=== PATIENT | male | born 1965 | race African-American/Black ===

== ENCOUNTER 2019-12-28 07:28 | Inpatient (IN) | payer SELFPAY ==
[2019-12-28] MEDS ORDERED: methylPREDNISolone Sod Succ/PF 125 MG/2 ML VIAL ONE (07:58)
[2019-12-28 08:50] LABS: CKMB 2.9 ng/mL (0-6.6)
[2019-12-28] MEDS ORDERED: Ketorolac Tromethamine 30 MG/ML VIAL ONE (09:08)
[2019-12-28 10:23] LABS: SARS-CoV-2 NAA Rapid Test Not Detected (NotDetected)
[2019-12-28] MEDS ORDERED: hydrALAZINE 20 MG/ML VIAL SLOW IVP PRN (10:41)
[2019-12-28] MEDS ORDERED: DEXTROSE 5% IVPB SCH (10:45)
[2019-12-28] MEDS ORDERED: TRIMETHOPRIM IVPB SCH (10:45)
[2019-12-28] MEDS ORDERED: WATER IVPB SCH (10:45)
[2019-12-28] MEDS ORDERED: SULFAMETHOXAZOLE IVPB SCH (10:45)
--- NOTE | 2019-12-28 10:51 | PDOC.HHP ---
Hospitalist HPI - History of Present Illness Shortness of breath, cough, hemoptysis History of Present Illness: This patient is a 54-year-old male with only a past medical history of hypertension. He takes no medications and does not follow with a physician regularly. Patient reported that on the he started experiencing some cough, shortness of breath, fever. He was seen in the emergency department in [place] on December 20. He had a chest x-ray which showed a reticulonodular pattern suggestive of an atypical pneumonia he was a bit tachypneic. He had reported hemoptysis at that time as well. He had azithromycin prescribed for him and he was discharged home after his Covid test returned negative. He returned to the emergency department the following day as his symptoms were somewhat progressive. At that time he had a CTA of the chest which did not reveal any PE but did continue to have evidence of multifocal pneumonia. He remained a bit tachycardic. He was given IV Levaquin. He was subsequently discharged home with oral Levaquin as he had normal oxygen saturations at that time. Patient presented again to the emergency department in [place] on the day of admission with worsening shortness of breath. He also had persistent hemoptysis. His chest x-ray showed worsening lung aeration and recommendation was for bronchoscopy. Patient was noted to have some low-grade fever. Blood pressure was somewhat elevated. He had a documented oxygen saturation as low as 66% on room air. He was given vancomycin, Levaquin, Zosyn and 2 L of IV fluids and transferred to this facility. While here the patient was noted to have significant hypoxia with briefly taking him off of the nonrebreather mask. Only additional history is that the patient reports he does have some discomfort in his chest at times since this started. He has continued to report fever. ED Course: In the emergency department here the patient received a dose of Decadron and Toradol. Hospitalist ROS - Review of Systems Constitutional: reports: fever, chills, sweats Respiratory: reports: cough, shortness of breath, hemoptysis Cardiovascular: reports: chest pain Gastrointestinal: denies: nausea, vomiting, abdominal pain, diarrhea, constipation Genitourinary: denies: dysuria, frequency Skin: denies: rash All other systems reviewed; all pertinent +/- noted in HPI/Subj - Medication Medications: None Hospitalist History - Past Medical History Source: patient Cardiac: reports: HTN Gastrointestinal: reports: Peptic ulcer disease - Past Surgical History Other Surgical History: Right hip surgery following a fracture related to a fall - Family History Family History: reports: no pertinent history - Social History Smoking Status: Never smoker Alcohol: reports: None Drugs: reports: none Other Social History: Patient is engaged. He is full code. His fiance or sister would be his surrogate decision makers. - Exam General Appearance: awake alert General - other findings: Mildly tachypneic with the nonrebreather mask in place. ENT: normocephalic atraumatic Neck: supple, symmetric, no JVD, no thyromegaly, no lymphadenopathy, no carotid bruit Heart: RRR, no murmur, no gallops, no rubs, normal peripheral pulses Respiratory: tachypneic Respiratory - other findings: Scattered rales throughout both lungs in all carney Gastrointestinal: soft, non-tender, non-distended, normal bowel sounds, no palpable masses, no hepatomegaly, no splenomegaly, no bruit Extremities: no cyanosis, no clubbing, no edema Skin: normal turgor, no lesions, no rashes Neurological: cranial nerve grossly intact, normal sensation to touch, no weakness, no focal deficits, no new deficit Musculoskeletal: normal tone, normal strength, no muscle wasting Psychiatric: normal affect, normal behavior, A&O x 3 Hospitalist Results - Labs Lab results: Lactic Acid 1.1 mmol/L (0.5-2.2) 12/28/19 07:55 CK-MB (CK-2) 2.9 ng/mL (0-6.6) 12/28/19 07:55 Troponin I 0.045 ng/mL (< 0.028) H 12/28/19 07:55 White count is 18.4, hemoglobin 13.5, platelets 438. D-dimer is 1.78, INR is 1.0, PTT is 40.2. Sodium 133 potassium 4.1 CO2 22 BUN 11 creatinine 1.03 glucose 168 AST 76 ALT 101 alkaline phos 139 CK 248 troponin 0 0.045. Covid negative again today. - Radiology Interpretation Chest x-ray Status: image reviewed by me, report reviewed by me (Worsening aeration.) Hospitalist H&P A/P - Problem (1) Acute respiratory failure with hypoxia Code(s): J96.01 - ACUTE RESPIRATORY FAILURE WITH HYPOXIA Status: Acute (2) Atypical pneumonia Code(s): J18.9 - PNEUMONIA, UNSPECIFIED ORGANISM Status: Acute (3) Hemoptysis Code(s): R04.2 - HEMOPTYSIS Status: Acute (4) Hypertension Code(s): I10 - ESSENTIAL (PRIMARY) HYPERTENSION Status: Acute (5) Elevated liver enzymes Code(s): R74.8 - ABNORMAL LEVELS OF OTHER SERUM ENZYMES Status: Acute (6) Myocardial infarction Code(s): I21.9 - ACUTE MYOCARDIAL INFARCTION, UNSPECIFIED Status: Acute Qualifiers: Myocardial infarction type: type 2 Qualified Code(s): I21.A1 - Myocardial infarction type 2 - Plan Plan: Patient is a 54-year-old male who presented with cough, fever, shortness of breath and hemoptysis for a total of 7 days. He was seen in the emergency department twice earlier in the week. He received azithromycin and Levaquin orally. His symptoms have progressed. He is significantly hypoxic in the emergency department with an atypical pneumonia pattern on his chest x-ray and an elevated white blood cell count. Acute hypoxic respiratory failure: Patient appears to have respiratory failure secondary to significant atypical type pneumonia. Currently on nonrebreather. Continue supplemental oxygen as required. Pulmonary consult. Atypical pneumonia: Patient has a negative Covid test x2 over the past week. 1 was negative today. He does not appear to be immunocompromised for any reason. He has significant l eukocytosis and his pattern on chest x-ray does not appear to be consistent with Covid. Concerning for possible PCP pneumonia. Will cover with Bactrim. Consult pulmonology for possible bronchoscopy. Check urine antigens for Legionella. QuantiFERON, sputum for AFB. Isolate. ID consult. Continue coverage with vancomycin and cefepime. Elevated liver enzymes: Mild. Unclear if this is significant. We will continue to monitor. Likely represents some mild fatty liver disease in an overweight patient. Could be part of the infectious process. Hypertension: Patient has a history of hypertension. He does not take any medications at this time. His blood pressure has been somewhat variable over his hospital visits in the past week. We will provide for a as needed IV medication. NSTEMI type II: Secondary to acute hypoxia. Does not appear to warrant further work-up at this time.
[2019-12-28 12:12] LABS: CKMB 3.9 ng/mL (0-6.6)
[2019-12-28] MEDS: TRIMETHOPRIM IVPB SCH (12:40)
[2019-12-28] MEDS: DEXTROSE 5% IVPB SCH (12:40)
[2019-12-28] MEDS: WATER IVPB SCH (12:40)
[2019-12-28] MEDS: SULFAMETHOXAZOLE IVPB SCH (12:40)
[2019-12-28] MEDS: Cefepime 1 GM in Sodium Chloride 0.9% 100 ML IVPB SCH (12:41)
[2019-12-28] MEDS: Sodium Chloride 0.9% 1,000 ML IV SCH (14:24)
[2019-12-28] MEDS ORDERED: Vancomycin 1 GM in Premix Bag 1 BAG IVPB SCH (21:00)
[2019-12-28] MEDS ORDERED: Benzonatate 100 MG CAP PO SCH (22:00)
[2019-12-28 23:43] VITALS: BMI 34.7
[2019-12-29] MEDS: TRIMETHOPRIM IVPB SCH ×4 (00:04→12:39)
[2019-12-29] MEDS: WATER IVPB SCH ×4 (00:04→12:39)
[2019-12-29] MEDS: SULFAMETHOXAZOLE IVPB SCH ×4 (00:04→12:39)
[2019-12-29] MEDS: DEXTROSE 5% IVPB SCH ×4 (00:04→12:39)
[2019-12-29] MEDS: Cefepime 1 GM in Sodium Chloride 0.9% 100 ML IVPB SCH ×2 (00:28→10:40)
[2019-12-29] MEDS: Acetaminophen 325 MG TAB PO PRN ×2 (00:28→07:51)
[2019-12-29] MEDS: Famotidine 20 MG TAB PO SCH ×3 (00:33→20:36)
[2019-12-29] MEDS: Sodium Chloride 0.9% 1,000 ML IV SCH ×2 (00:33→12:40)
[2019-12-29 02:42] LABS: Legionella Urinary Ag Negative (Negative)
[2019-12-29 03:27] LABS: Band 19 % (5-11); Hemoglobin 11.5 g/dL (14.0-18.0); Lymphocytes 7 % (21-51); MDiff Complete? YES; Mean Corpuscular HGB CONC 32.8 g/dL (32.0-36.0); Mean Corpuscular Hemoglobin 31.6 pg (27.0-31.0); Mean Corpuscular Volume 96.3 fL (78.0-98.0); Mean Platelet Volume 7.1 fL (7.4-10.4); Metamyelocyte 1 % (0-0); Monocytes 5 % (0-10); Neutrophil 68 % (42-75); Platelet Count 378 thou/uL (130-400); Platelet Morphology Comment Appears Adequate; RBC Distribution Width 11.3 % (11.5-14.5); Red Blood Cell (RBC) Count 3.63 mill/uL (4.70-6.10); White Blood Cell (WBC) Count 18.9 thou/uL (4.8-10.8)
[2019-12-29 03:42] LABS: ALT (SGPT) 95 U/L (8-55); AST (SGOT) 75 U/L (5-34); Albumin 2.9 g/dL (3.5-5.0); Alkaline Phosphatase 129 U/L (40-110); Anion Gap 13 mmol/L (10-20); BUN (Urea Nitrogen) 16 mg/dL (8.4-25.7); Bilirubin, Total 0.4 mg/dL (0.2-1.2); Calc. Creatinine Clearance 154 mL/min (70-130); Calcium 8.5 mg/dL (7.8-10.44); Carbon Dioxide 25 mmol/L (22-29); Chloride 100 mmol/L (98-107); Estimated GFR-MDRD Greater than 90; Globulin 3.7 g/dL (2.4-3.5); Glucose 198 mg/dL (70-105); Potassium 4.9 mmol/L (3.5-5.1); Protein, Total 6.6 g/dL (6.0-8.3); Sodium 133 mmol/L (136-145)
[2019-12-29] MEDS: Benzonatate 100 MG CAP PO PRN ×3 (07:51→23:30)
[2019-12-29] MEDS ORDERED: FLU VACC QS2020-21(6MOS UP)/PF 60 MCG/0.5 ML SYRINGE IM ONE (09:00)
--- NOTE | 2019-12-29 12:28 | PDOC.HOSPP ---
- Subjective Encounter Date: 12/29/19 Encounter Time: 12:25 Subjective: f/u for multifocal PNA/hypoxic resp failure receiving Cefepime/Bactrim/O2. Still with SOB and coughing. COVID and Influenza negative. - Objective Vital Signs & Weight: Vital Signs (12 hours) Temp Pulse Ox 12/29/19 11:04 92 L 12/29/19 10:00 97.4 F L 12/29/19 08:00 97 12/29/19 06:00 98.0 F Weight Weight 270 lb 1.06 oz Most Recent Monitor Data Heart Rate from ECG 82 NIBP 131/78 NIBP BP-Mean 95 Respiration from ECG 29 SpO2 94 I&O: 12/28/19 12/29/19 12/30/19 06:59 06:59 06:59 Intake Total 500 Output Total 1250 Balance -750 Result Diagrams: 12/29/19 03:13 12/29/19 03:13 Radiology Reviewed by me: Yes (PCXR - worsening aeration bilat) EKG Reviewed by me: Yes (Tele - SR) Hospitalist ROS - Medication Medications: Active Medications Generic Name Dose Route Start Last Admin Trade Name Freq PRN Reason Stop Dose Admin Acetaminophen 650 mg 12/28/19 10:29 12/29/19 07:51 Acetaminophen 325 Mg Tab PO 650 mg Q4H PRN Administration Headache/Fever/Mild Pain (1-3) Benzonatate 100 mg 12/29/19 02:41 12/29/19 07:51 Benzonatate 100 Mg Cap PO 100 mg TIDPRN PRN Administration Cough Famotidine 20 mg 12/28/19 21:00 12/29/19 07:51 Famotidine 20 Mg Tab PO 20 mg BID KRISTY Administration Sodium Chloride 1,000 mls @ 75 mls/hr 12/28/19 10:30 12/29/19 00:33 Normal Saline 0.9% IV 1,000 mls .[id number] KRISTY Administration Cefepime HCl 1 gm/ Sodium 100 mls @ 200 mls/hr 12/28/19 12:00 12/29/19 10:40 Chloride IVPB 100 mls 0000,1200 KRISTY Administration Trimethoprim/Sulfamethoxazole 375 mls @ 375 mls/hr 12/28/19 12:00 12/29/19 06:27 240 mg/ Dextrose/Water IVPB 375 mls Q6HR KRISTY Administration - Exam General Appearance: NAD, awake alert Eye: PERRL, anicteric sclera ENT: normocephalic atraumatic, no oropharyngeal lesions Neck: supple, symmetric, no JVD, no thyromegaly, no lymphadenopathy Heart: RRR, no gallops, no rubs, normal peripheral pulses Heart - other findings: S1, S2 Gastrointestinal: soft, non-tender, non-distended, normal bowel sounds, no palpable masses, no hepatomegaly Extremities: no cyanosis, no clubbing, no edema Skin: normal turgor, no lesions Neurological: cranial nerve grossly intact, no new deficit Musculoskeletal: normal tone, normal strength, no muscle wasting Psychiatric: normal affect, A&O x 3 Hosp A/P (1) Atypical pneumonia Code(s): J18.9 - PNEUMONIA, UNSPECIFIED ORGANISM Status: Acute Plan: ? etiology, continue Cefepime/Bactrim, r/o for TB/PCP, add Solumedrol and Duonebs, COVID negative (2) Acute respiratory failure with hypoxia Code(s): J96.01 - ACUTE RESPIRATORY FAILURE WITH HYPOXIA Status: Acute Plan: Continue O2 supplementation, see #1 (3) Transaminitis Code(s): R74.01 - ELEVATION OF LEVELS OF LIVER TRANSAMINASE LEVELS Status: Acute Plan: ? etiology, check Hepatitis panel, ? fatty liver (4) Hemoptysis Code(s): R04.2 - HEMOPTYSIS Status: Acute Plan: Improving, continue to monitor (5) Hypertension Code(s): I10 - ESSENTIAL (PRIMARY) HYPERTENSION Status: Chronic (6) Myocardial infarction Code(s): I21.9 - ACUTE MYOCARDIAL INFARCTION, UNSPECIFIED Status: Acute Qualifiers: Myocardial infarction type: type 2 Qualified Code(s): I21.A1 - Myocardial infarction type 2 Plan: Type II due to demand ischemia, med mgmt - Plan continue antibiotics, respiratory therapy, DVT proph w/SCDs Stable currently Continue Cefepime/Bactrim Add Solumedrol 40mg IV q6h Add Robitussin DM Add Duonebs Appreciate Pulmonology assistance AM Lab: CMP, CBC, Hep Panel, HIV 1/2 Ag/Ab
[2019-12-29 13:47] LABS: HIV (1/2) Antibody/Antigen Non-Reactive (NonReactive); HIV 1/2 INDEX 0.16 S/CO (<1.00)
[2019-12-29] MEDS: methylPREDNISolone Sod Succ/PF 125 MG/2 ML VIAL IVP SCH ×2 (16:39→18:11)
[2019-12-29 17:58] LABS: Bacteria/HPF None Seen HPF (None Seen); RBC/HPF 0-3 HPF (0-3); Squamous Epithelial 0-3 HPF (0-3); WBC/HPF 0-3 HPF (0-3)
[2019-12-29 20:00] LABS: Legionella Urinary Ag Negative (Negative)
[2019-12-29 20:27] LABS: SARS-CoV-2 IgG Ab Non-Reactive (NonReactive); SARS-CoV-2 IgG Index 0.36 S/CO (< 1.40)
[2019-12-29] MEDS: Guaifenesin DM 100-10/5 ML UDCUP PO PRN (20:37)
--- NOTE | 2019-12-29 22:20 | CON ---
DATE OF CONSULTATION: 12/29/2019 REASON: Pneumonia. HISTORY OF PRESENT ILLNESS: A 54-year-old, first admission to this hospital, who has history of hypertension and gastric ulcers and initially showed up in the emergency room on December 20 with 2-day history of cough and substernal chest pain, so he has been sick since December 18. He did have some subjective fever, but in the emergency room, he did not have a temperature recorded. He was saturating at 96 on room air. Chest x-ray had a reticular nodular pattern and he had a normal troponin and lactic acid, so a followup in 24 hours was recommended. He did have some hemoptysis at that time. He was prescribed azithromycin for the possibility of atypical pneumonia. He returned the next day and felt okay but then started having fever again and the cough worsened with streaks of blood. The temperature was 99.7, O2 sat was 97 on room air, and pulse 112. Chest CT showed patchy infiltrates. No embolism. There is mild white cell count elevation. He was given IV Levaquin and eventually discharged to home for followup in the clinic and then he came in back on the and was admitted. This final time, patient's BP 180/100; O2 sat of 66 on room air, 99 on a nonrebreather. Respiratory exam with mild respiratory distress, inspiratory crackles, diffusely distributed. Remainder of the examination not particularly remarkable. Other findings, white cell count 18.9, hemoglobin 11, platelets 378, bands 19, metamyelocyte 1, lymphocytes were decreased, and creatinine 0.94. AST 75. HIV was nonreactive. Legionella pneumophila antigen negative. Repeat SARS-CoV-2 RT-PCR was not detected, this is the second test. The first one was almost 10 days ago. Currently, Mr. Hemphill is still a little bit tachypneic. He feels a little better because his sputum is not so yellow anymore and does not have the blood streaks. No headaches. No visual symptoms, sore throat, odynophagia, or dysphagia. No dental pain. No back pain. No abdominal pain or diarrhea. No genitourinary symptoms. No joint symptoms. No neurological symptoms. PAST MEDICAL HISTORY: Hypertension and peptic ulcer disease. SURGICAL HISTORY: Hip surgery after fracture. FAMILY HISTORY: Noncontributory. SOCIAL HISTORY: Never smoker. He lives with his fiancee, has been before with two children, grown up. 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 CURRENT MEDICATIONS LIST: Includes: 1. Inhalers. 2. Tessalon. 3. Cefepime. 4. Medrol. 5. Bactrim. PHYSICAL EXAMINATION: VITAL SIGNS: T-max 98, blood pressure 130/70, heart rate 82, respiratory rate 29, and he is on 4 L nasal cannula, saturating at 92%. SKIN: Normal. There is no lymphadenopathy. HEENT: Ocular movements conjugate. Sclerae white. Oral cavity normal. NECK: Supple. LUNGS: With a few crackles scattered. No wheezing. HEART: S1, S2. Regular rate. ABDOMEN: Soft, not distended or tender. No ascites. No bladder distention. EXTREMITIES: No joint inflammatory activity. Moves extremities equally. NEUROLOGIC: Cognitive function appears to be intact. LABORATORIES: Have been reviewed above. Chest CT angiogram from seven days ago with multifocal pneumonia with a centrilobular pattern. ASSESSMENT: Hypertension with new diffuse pneumonitis with negative SARS-CoV RT-PCR x2 one week apart. Hemoptysis. DISCUSSION: The pretest likelihood for SARS-CoV infection is very high and even two negative PCRs do not rule out this diagnosis in this patient. We will go ahead and submit an antibody test and if that is negative, then it would decrease significantly the likelihood of SARS-CoV-2 infection. Other assays have been submitted, including MTB sputum evaluation. HIV is negative and Pneumocystis is unlikely in the absence of advanced immunosuppression. Fungal mycobacterial infection need to be ruled out, but SARS-CoV-2 infection is by far the most likely scenario despite two negative PCR tests. In that regard, he may be a candidate for Remdesivir, he is approaching, today is the kind of limit, but I think if the antibody is positive, we will go ahead and start him tomorrow Remdesivir. High doses of corticosteroids tend to suppress immune response antibody production and cellular immune response, so if it is confirmed that he has SARS-CoV infection, I would advise reduction to the doses recommended in the multiple randomized trials, which is equivalent to 6 mg of Decadron. Also, Decadron does not have mineralo corticoid activities, so it is more beneficial in terms of avoiding volume overload. Job ID: [id number] [facility]
--- NOTE | 2019-12-29 23:28 | CON ---
DATE OF CONSULTATION: 12/29/2019 SUBJECTIVE: Zeyad Hemphill is a 54-year-old male, who has been feeling poorly for over a week. He has had 2 negative COVID tests during that period. He has diffuse infiltrates on a chest radiograph and subsequently was admitted. Says he feels a tiny bit better than when he was admitted. OBJECTIVE: VITAL SIGNS: Blood pressure is elevated at 182/89 this afternoon and 163/108 later this afternoon, heart rates in the 90s, respiratory rates in the 20s, oximetry is 91% to 96%. LUNGS: Remarkable for fine crackles at his bases. HEART: Regular rhythm. ABDOMEN: Soft. EXTREMITIES: Without clubbing, cyanosis, or edema. 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 He has not been around anybody who has been sick. Did have some hemoptysis with this. PAST MEDICAL HISTORY: Remarkable for hypertension, ulcer disease, and a fracture in the past. SOCIAL HISTORY: He is nonsmoker, nondrinker, and nondrug user. LABORATORY STUDIES: White count 18.9, hemoglobin 11.5, platelets 278,000. Electrolytes are unremarkable. No urinalysis. Liver enzymes are mildly elevated. Albumin was 2.9. Chest radiograph shows diffuse increase in interstitial markings with some micronodular changes. This certainly could be atypical pneumonia. Hypertensive with left ventricular dysfunction with small pulmonary edema could be contributing. Hypersensitivity pneumonitis, granulomatous disease, disseminated histoplasma, or an ANCA positive vasculitis is still in the differential. Serology has been sent for all the above. He needs urinalysis to rule out microhematuria. I doubt with two COVID screens that are negative, this is COVID. We will follow. This is a 70 min visit with greater than 50% of the time spent on the unit with coordination of care. Job ID: [id number] [facility]
[2019-12-30] MEDS: Cefepime 1 GM in Sodium Chloride 0.9% 100 ML IVPB SCH ×2 (00:39→11:10)
[2019-12-30] MEDS: methylPREDNISolone Sod Succ/PF 125 MG/2 ML VIAL IVP SCH ×4 (00:39→17:27)
[2019-12-30] MEDS: Sodium Chloride 0.9% 1,000 ML IV SCH ×2 (01:33→05:57)
[2019-12-30 03:55] LABS: #Lymphocytes 0.6 thou/uL (1.20-3.40); #Monocytes 0.4 thou/uL (0.11-0.59); #Neutrophils 13.9 thou/uL (1.40-6.50); %Basophils 0.1 % (0.0-1.0); %Eosinophils 0.2 % (0.0-10.0); %Lymphocytes 4.2 % (21.0-51.0); %Monocytes 2.9 % (0.0-10.0); %Neutrophils 92.6 % (42.0-75.0); Mean Corpuscular HGB CONC 33.4 g/dL (32.0-36.0); Mean Corpuscular Volume 95.7 fL (78.0-98.0); Mean Platelet Volume 7.1 fL (7.4-10.4); Platelet Count 470 thou/uL (130-400); RBC Distribution Width 11.5 % (11.5-14.5); Red Blood Cell (RBC) Count 3.75 mill/uL (4.70-6.10); White Blood Cell (WBC) Count 13.2 thou/uL (4.8-10.8)
[2019-12-30 04:16] LABS: ALT (SGPT) 172 U/L (8-55); AST (SGOT) 118 U/L (5-34); Albumin 3.1 g/dL (3.5-5.0); Alkaline Phosphatase 118 U/L (40-110); Anion Gap 13 mmol/L (10-20); BUN (Urea Nitrogen) 12 mg/dL (8.4-25.7); Bilirubin, Total 0.3 mg/dL (0.2-1.2); Calc. Creatinine Clearance 161 mL/min (70-130); Calcium 8.6 mg/dL (7.8-10.44); Carbon Dioxide 25 mmol/L (22-29); Chloride 102 mmol/L (98-107); Estimated GFR-MDRD Greater than 90; Globulin 3.6 g/dL (2.4-3.5); Glucose 142 mg/dL (70-105); Potassium 5.2 mmol/L (3.5-5.1); Protein, Total 6.7 g/dL (6.0-8.3); Sodium 135 mmol/L (136-145)
[2019-12-30 04:31] LABS: HBCM Index 0.24 S/CO (0-0.79); HBSAg Index 0.22 S/CO (0-0.99); Hep A IgM AB Non-Reactive (NonReactive); Hep A IgM S/CO 0.23 S/CO (0-0.79); Hep B Surf Ag Non-Reactive S/CO (NonReactive); Hep C IgG Ab Non-Reactive (NonReactive); Hep C Index 0.09 S/CO (0-0.79); Hepatitis B Core IgM Abs Non-Reactive (NonReactive)
[2019-12-30] MEDS: Famotidine 20 MG TAB PO SCH ×2 (07:43→20:38)
[2019-12-30] MEDS: cloNIDine 0.1 MG TAB PO PRN ×2 (11:08→20:54)
[2019-12-30] MEDS: Benzonatate 100 MG CAP PO PRN (11:09)
[2019-12-30 12:31] LABS: Vancomycin, Trough Less than 1.1 ug/mL
--- NOTE | 2019-12-30 15:10 | PRG ---
DATE OF SERVICE: 12/30/2019 SUBJECTIVE: Zeyad Hemphill says he is feeling significantly better than yesterday. OBJECTIVE: VITAL SIGNS: He is afebrile, heart rate is in the 90s, respiratory rates in the 20s, oximetry is 94% on a cannula, and blood pressure is better this afternoon after Catapres p.r.n. LUNGS: Clear. HEART: Regular rhythm. ABDOMEN: Soft. IMPRESSION: Diffuse increase in interstitial markings with micro nodules. PLAN: We will continue following. His sedimentation rate is 127, which is surprising. This might argue in favor of a vasculitis. Those tests are pending. Job ID: [id number]
--- NOTE | 2019-12-30 16:31 | PDOC.HOSPP ---
- Subjective Encounter Date: 12/30/19 Encounter Time: 16:30 Subjective: f/u for multifocal PNA with unclear etiology including COVID negative x 2 and negative antibodies. Feels overall better and less dyspnea and cough. Receiving Cefepime/Solumedrol/O2 @ 4L/min NC. - Objective Vital Signs & Weight: Vital Signs (12 hours) Temp Pulse Resp BP BP Pulse Ox 12/30/19 14:15 98.1 F 98 22 H 144/88 H 94 L 12/30/19 14:00 95 12/30/19 12:00 98.1 F 12/30/19 11:08 168/100 H 12/30/19 10:37 94 L 12/30/19 10:34 90 20 94 L 12/30/19 08:00 98.1 F 12/30/19 07:47 92 L Weight Weight 270 lb 1.06 oz Most Recent Monitor Data Heart Rate from ECG 97 NIBP 170/99 NIBP BP-Mean 122 Respiration from ECG 23 SpO2 92 I&O: 12/29/19 12/30/19 12/31/19 06:59 06:59 06:59 Intake Total 1700 4230 Output Total 1250 5350 Balance 450 -1120 Result Diagrams: 12/30/19 03:24 12/30/19 03:24 Additional Labs: Microbiology 12/29/19 00:49 Sputum Direct Acid Fast Bacilli Smear - Final 12/29/19 00:49 Sputum Acid Fast Bacilli Culture - Preliminary Specimen has been received and culture in progress. No Growth to date. Laboratory Tests 12/28/19 12/28/19 12/28/19 05:27 07:55 07:55 WBC Hgb ESR Westergren Lactic Acid 1.1 AST 76 H ALT 101 H Lactate Dehydrogenase Troponin I 0.045 H HIV 1&2 Antigen & Ab Ur L.pneumophila Ag SARS-CoV-2 Rap RNA(RT-PCR) SARS-CoV-2 IgG Ab SARS-CoV-2 IgG Ab Index 12/28/19 12/28/19 12/28/19 07:55 09:08 11:01 WBC Hgb ESR Westergren Lactic Acid AST ALT Lactate Dehydrogenase 254 H Troponin I 0.039 H HIV 1&2 Antigen & Ab Ur L.pneumophila Ag SARS-CoV-2 Rap RNA(RT-PCR) Not Detected SARS-CoV-2 IgG Ab SARS-CoV-2 IgG Ab Index 12/28/19 12/29/19 12/29/19 14:50 02:07 03:13 WBC Hgb ESR Westergren Lactic Acid AST 75 H ALT 95 H Lactate Dehydrogenase Troponin I 0.023 HIV 1&2 Antigen & Ab Ur L.pneumophila Ag Negative SARS-CoV-2 Rap RNA(RT-PCR) SARS-CoV-2 IgG Ab SARS-CoV-2 IgG Ab Index 12/29/19 12/29/19 12/29/19 03:13 12:51 12:55 WBC 18.9 H Hgb 11.5 L ESR Westergren 127 H Lactic Acid AST ALT Lactate Dehydrogenase Troponin I HIV 1&2 Antigen & Ab Ur L.pneumophila Ag SARS-CoV-2 Rap RNA(RT-PCR) SARS-CoV-2 IgG Ab Non-Reactive SARS-CoV-2 IgG Ab Index 0.36 12/29/19 12/29/19 12:55 Unknown WBC Hgb ESR Westergren Lactic Acid AST ALT Lactate Dehydrogenase Troponin I HIV 1&2 Antigen & Ab Non-Reactive Ur L.pneumophila Ag Negative SARS-CoV-2 Rap RNA(RT-PCR) SARS-CoV-2 IgG Ab SARS-CoV-2 IgG Ab Index Hospitalist ROS - Medication Medications: Active Medications Generic Name Dose Route Start Last Admin Trade Name Freq PRN Reason Stop Dose Admin Acetaminophen 650 mg 12/28/19 10:29 12/29/19 07:51 Acetaminophen 325 Mg Tab PO 650 mg Q4H PRN Administration Headache/Fever/Mild Pain (1-3) Albuterol/Ipratropium 3 ml 12/29/19 14:30 12/30/19 10:34 Ipratropium/Albuterol Sulfate 3 Ml Neb NEB 3 ml [id number] KRISTY Administration Benzonatate 100 mg 12/29/19 02:41 12/30/19 11:09 Benzonatate 100 Mg Cap PO 100 mg TIDPRN PRN Administration Cough Clonidine 0.1 mg 12/30/19 10:45 12/30/19 11:08 Clonidine 0.1 Mg Tab PO 0.1 mg Q4H PRN Administration SBP>170 & DBP>100 Famotidine 20 mg 12/28/19 21:00 12/30/19 07:43 Famotidine 20 Mg Tab PO 20 mg BID KRISTY Administration Guaifenesin/Dextromethorphan 15 ml 12/29/19 12:49 12/29/19 20:37 Guaifenesin Dm 100-10/5 Ml Udcup PO 15 ml Q4H PRN Administration Cough Sodium Chloride 1,000 mls @ 75 mls/hr 12/28/19 10:30 12/30/19 05:57 Normal Saline 0.9% IV 1,000 mls .[id number] KRISTY Administration Cefepime HCl 1 gm/ Sodium 100 mls @ 200 mls/hr 12/28/19 12:00 12/30/19 11:10 Chloride IVPB 100 mls 0000,1200 KRISTY Administration Trimethoprim/Sulfamethoxazole 500 mls @ 250 mls/hr 12/29/19 18:00 12/30/19 12:48 240 mg/ Dextrose/Water IVPB 500 mls Q6HR KRISTY Administration Methylprednisolone Sodium Succinate 40 mg 12/29/19 13:00 12/30/19 11:09 Methylprednisolone Sod Succ/Pf 125 Mg/2 Ml Vial IVP 40 mg 0100,0700,1300,1900 KRISTY Administration Sodium Chloride 10 ml 12/30/19 09:00 12/30/19 07:43 Flush - Normal Saline 10 Ml Syringe IVF 10 ml Q12HR KRISTY Administration - Exam General Appearance: NAD, awake alert Eye: PERRL, anicteric sclera ENT: normocephalic atraumatic, no oropharyngeal lesions Neck: supple, symmetric, no JVD, no thyromegaly, no lymphadenopathy Heart: RRR, no murmur, no gallops, no rubs, normal peripheral pulses Respiratory: no rales, tachypneic Respiratory - other findings: few rhonchi/wheezes bilat Gastrointestinal: soft, non-tender, non-distended, normal bowel sounds, no palpable masses Extremities: no cyanosis, no clubbing, no edema Skin: normal turgor, no lesions Neurological: cranial nerve grossly intact, no new deficit Musculoskeletal: normal tone, normal strength, no muscle wasting Psychiatric: normal affect, A&O x 3 Hosp A/P (1) Atypical pneumonia Code(s): J18.9 - PNEUMONIA, UNSPECIFIED ORGANISM Status: Acute Plan: Continue Cefepime/Sulfa, Duonebs, Solumedrol (2) Acute respiratory failure with hypoxia Code(s): J96.01 - ACUTE RESPIRATORY FAILURE WITH HYPOXIA Status: Acute Plan: Continue O2 supplementation, wean as clinically tolerated (3) Transaminitis Code(s): R74.01 - ELEVATION OF LEVELS OF LIVER TRANSAMINASE LEVELS Status: Acute Plan: Likely due to infectious process, serial monitoring (4) Hemoptysis Code(s): R04.2 - HEMOPTYSIS Status: Acute Plan: Secondary to #1 (5) Hypertension Code(s): I10 - ESSENTIAL (PRIMARY) HYPERTENSION Status: Chronic Plan: Start Norvasc 5mg po daily, serial monitoring (6) Myocardial infarction Code(s): I21.9 - ACUTE MYOCARDIAL INFARCTION, UNSPECIFIED Status: Acute Qualifiers: Myocardial infarction type: type 2 Qualified Code(s): I21.A1 - Myocardial infarction type 2 Plan: Demand ischemia, med mgmt - Plan continue antibiotics, social work program coordinator, respiratory therapy, out of bed/ambulate, DVT proph w/SCDs Stable currently Continue Cefepime/Bactrim Add Solumedrol 40mg IV q6h Add Robitussin DM Add iWliam Appreciate Pulmonology assistance Saline lock IVF AM Lab: CMP, CBC
[2019-12-30] MEDS: Acetaminophen 325 MG TAB PO PRN (20:42)
[2019-12-31] MEDS: Cefepime 1 GM in Sodium Chloride 0.9% 100 ML IVPB SCH ×2 (00:14→11:20)
[2019-12-31] MEDS: methylPREDNISolone Sod Succ/PF 125 MG/2 ML VIAL IVP SCH ×4 (00:15→17:50)
[2019-12-31 07:51] LABS: Hemoglobin 13.2 g/dL (14.0-18.0); Mean Corpuscular HGB CONC 31.3 g/dL (32.0-36.0); Mean Corpuscular Hemoglobin 29.9 pg (27.0-31.0); Mean Corpuscular Volume 95.5 fL (78.0-98.0); Mean Platelet Volume 6.8 fL (7.4-10.4); Platelet Count 640 thou/uL (130-400); RBC Distribution Width 11.6 % (11.5-14.5); Red Blood Cell (RBC) Count 4.42 mill/uL (4.70-6.10); White Blood Cell (WBC) Count 19.7 thou/uL (4.8-10.8)
[2019-12-31 08:08] LABS: ALT (SGPT) 138 U/L (8-55); AST (SGOT) 43 U/L (5-34); Albumin 3.4 g/dL (3.5-5.0); Alkaline Phosphatase 115 U/L (40-110); Anion Gap 13 mmol/L (10-20); BUN (Urea Nitrogen) 18 mg/dL (8.4-25.7); Bilirubin, Total 0.5 mg/dL (0.2-1.2); Calc. Creatinine Clearance 131 mL/min (70-130); Carbon Dioxide 25 mmol/L (22-29); Chloride 101 mmol/L (98-107); Estimated GFR-MDRD 84; Glucose 174 mg/dL (70-105); Potassium 4.9 mmol/L (3.5-5.1); Protein, Total 7.4 g/dL (6.0-8.3); Sodium 134 mmol/L (136-145)
[2019-12-31 08:59] LABS: Band 4 % (5-11); Lymphocytes 7 % (21-51); MDiff Complete? YES; Monocytes 3 % (0-10); Neutrophil 86 % (42-75); Platelet Morphology Comment Appears Increased
[2019-12-31] MEDS: Amlodipine 5 MG TAB PO SCH (09:55)
[2019-12-31] MEDS: Famotidine 20 MG TAB PO SCH ×2 (09:55→19:47)
--- NOTE | 2019-12-31 10:48 | PDOC.HOSPP ---
- Subjective Encounter Date: 12/31/19 Encounter Time: 10:45 Subjective: f/u for multifocal PNA/hypoxia receiving Cefepime/Sulfa/Duonebs/O2 @ 4L/min NC. c/o abd pain and bloating beginning last pm spontaneously, had BM yesterday but none today, no N/V. CT abd performed this am. - Objective Vital Signs & Weight: Vital Signs (12 hours) Temp Pulse Resp BP BP Pulse Ox 12/31/19 09:55 90 167/98 H 12/31/19 08:00 93 L 12/31/19 07:21 98.2 F 90 18 163/98 H 93 L 12/31/19 04:00 98.1 F 86 18 149/93 H 93 L 12/31/19 00:00 98.2 F 77 18 166/100 H 94 L Weight Weight 270 lb 1.06 oz Most Recent Monitor Data Heart Rate from ECG 97 NIBP 170/99 NIBP BP-Mean 122 Respiration from ECG 23 SpO2 92 I&O: 12/30/19 12/31/19 01/01/20 06:59 06:59 06:59 Intake Total 4230 2000 Output Total 5350 2700 Balance -1120 -700 Result Diagrams: 12/31/19 07:31 12/31/19 07:31 Additional Labs: Microbiology 12/29/19 00:49 Sputum Direct Acid Fast Bacilli Smear - Final 12/29/19 00:49 Sputum Acid Fast Bacilli Culture - Preliminary Specimen has been received and culture in progress. No Growth to date. Laboratory Tests 12/28/19 12/28/19 12/28/19 05:27 07:55 07:55 WBC Hgb Plt Count ESR Westergren Potassium Lactic Acid 1.1 AST 76 H ALT 101 H Alkaline Phosphatase Lactate Dehydrogenase Troponin I 0.045 H HIV 1&2 Antigen & Ab Ur L.pneumophila Ag SARS-CoV-2 Rap RNA(RT-PCR) SARS-CoV-2 IgG Ab SARS-CoV-2 IgG Ab Index 12/28/19 12/28/19 12/28/19 07:55 09:08 11:01 WBC Hgb Plt Count ESR Westergren Potassium Lactic Acid AST ALT Alkaline Phosphatase Lactate Dehydrogenase 254 H Troponin I 0.039 H HIV 1&2 Antigen & Ab Ur L.pneumophila Ag SARS-CoV-2 Rap RNA(RT-PCR) Not Detected SARS-CoV-2 IgG Ab SARS-CoV-2 IgG Ab Index 12/28/19 12/29/19 12/29/19 14:50 02:07 03:13 WBC Hgb Plt Count ESR Westergren Potassium Lactic Acid AST 75 H ALT 95 H Alkaline Phosphatase Lactate Dehydrogenase Troponin I 0.023 HIV 1&2 Antigen & Ab Ur L.pneumophila Ag Negative SARS-CoV-2 Rap RNA(RT-PCR) SARS-CoV-2 IgG Ab SARS-CoV-2 IgG Ab Index 12/29/19 12/29/19 12/29/19 03:13 12:51 12:55 WBC 18.9 H Hgb 11.5 L Plt Count ESR Westergren 127 H Potassium Lactic Acid AST ALT Alkaline Phosphatase Lactate Dehydrogenase Troponin I HIV 1&2 Antigen & Ab Ur L.pneumophila Ag SARS-CoV-2 Rap RNA(RT-PCR) SARS-CoV-2 IgG Ab Non-Reactive SARS-CoV-2 IgG Ab Index 0.36 12/29/19 12/29/19 12/30/19 12:55 Unknown 03:24 WBC Hgb Plt Count ESR Westergren Potassium 5.2 H Lactic Acid AST 118 H ALT 172 H Alkaline Phosphatase 118 H Lactate Dehydrogenase Troponin I HIV 1&2 Antigen & Ab Non-Reactive Ur L.pneumophila Ag Negative SARS-CoV-2 Rap RNA(RT-PCR) SARS-CoV-2 IgG Ab SARS-CoV-2 IgG Ab Index 12/30/19 12/31/19 03:24 07:31 WBC 13.2 H Hgb 12.0 L Plt Count 470 H ESR Westergren Potassium Lactic Acid AST 43 H ALT 138 H Alkaline Phosphatase 115 H Lactate Dehydrogenase Troponin I HIV 1&2 Antigen & Ab Ur L.pneumophila Ag SARS-CoV-2 Rap RNA(RT-PCR) SARS-CoV-2 IgG Ab SARS-CoV-2 IgG Ab Index Radiology Reviewed by me: Yes (CT abd - air/fluid levels noted) Hospitalist ROS - Medication Medications: Active Medications Generic Name Dose Route Start Last Admin Trade Name Freq PRN Reason Stop Dose Admin Acetaminophen 650 mg 12/28/19 10:29 12/30/19 20:42 Acetaminophen 325 Mg Tab PO 650 mg Q4H PRN Administration Headache/Fever/Mild Pain (1-3) Albuterol/Ipratropium 3 ml 12/29/19 14:30 11/19/20 07:23 Ipratropium/Albuterol Sulfate 3 Ml Neb NEB Not Given [id number] KRISTY Amlodipine Besylate 5 mg 12/31/19 09:00 12/31/19 09:55 Amlodipine 5 Mg Tab PO 5 mg DAILY KRISTY Administration Benzonatate 100 mg 12/29/19 02:41 12/30/19 11:09 Benzonatate 100 Mg Cap PO 100 mg TIDPRN PRN Administration Cough Clonidine 0.1 mg 12/30/19 10:45 12/30/19 20:54 Clonidine 0.1 Mg Tab PO 0.1 mg Q4H PRN Administration SBP>170 & DBP>100 Famotidine 20 mg 12/28/19 21:00 12/31/19 09:55 Famotidine 20 Mg Tab PO 20 mg BID KRISTY Administration Guaifenesin/Dextromethorphan 15 ml 12/29/19 12:49 12/29/19 20:37 Guaifenesin Dm 100-10/5 Ml Udcup PO 15 ml Q4H PRN Administration Cough Cefepime HCl 1 gm/ Sodium 100 mls @ 200 mls/hr 12/28/19 12:00 12/31/19 00:14 Chloride IVPB 100 mls 0000,1200 KRISTY Administration Trimethoprim/Sulfamethoxazole 500 mls @ 250 mls/hr 12/29/19 18:00 12/31/19 06:06 240 mg/ Dextrose/Water IVPB 500 mls Q6HR KRISTY Administration Methylprednisolone Sodium Succinate 40 mg 12/29/19 13:00 12/31/19 06:09 Methylprednisolone Sod Succ/Pf 125 Mg/2 Ml Vial IVP 40 mg 0100,0700,1300,1900 KRISTY Administration Sodium Chloride 10 ml 12/30/19 09:00 12/31/19 09:55 Flush - Normal Saline 10 Ml Syringe IVF 10 ml Q12HR KRISTY Administration - Exam General Appearance: awake alert General - other findings: mild distress Eye: PERRL, anicteric sclera ENT: normocephalic atraumatic, no oropharyngeal lesions Neck: supple, symmetric, no JVD, no thyromegaly, no lymphadenopathy Heart: RRR, no gallops, no rubs, normal peripheral pulses Heart - other findings: S1, S2 Respiratory: no wheezes, tachypneic Respiratory - other findings: few scattered rhonchi Gastrointestinal: no hepatomegaly, tender to palpation, distended, diminished bowl sounds Extremities: no cyanosis, no clubbing, no edema Skin: normal turgor, no lesions Neurological: cranial nerve grossly intact, no new deficit Musculoskeletal: normal tone, normal strength, no muscle wasting Psychiatric: normal affect, A&O x 3 Hosp A/P (1) Atypical pneumonia Code(s): J18.9 - PNEUMONIA, UNSPECIFIED ORGANISM Status: Acute Plan: Continue Cefepime/Bactrim/Albuterol MDI/Solumedrol/O2 @ 4L/min NC (2) Acute respiratory failure with hypoxia Code(s): J96.01 - ACUTE RESPIRATORY FAILURE WITH HYPOXIA Status: Acute Plan: See above #1 (3) Ileus Code(s): K56.7 - ILEUS, UNSPECIFIED Status: Acute Plan: NPO, Dulcolax supp 10mg q8h, consider NGT if no improvement (4) Transaminitis Code(s): R74.01 - ELEVATION OF LEVELS OF LIVER TRANSAMINASE LEVELS Status: Acute Plan: Improved, serial monitoring (5) Hemoptysis Code(s): R04.2 - HEMOPTYSIS Status: Acute (6) Hypertension Code(s): I10 - ESSENTIAL (PRIMARY) HYPERTENSION Status: Chronic Plan: Continue Norvasc, serial BP monitoring (7) Myocardial infarction Code(s): I21.9 - ACUTE MYOCARDIAL INFARCTION, UNSPECIFIED Status: Acute Qualifiers: Myocardial infarction type: type 2 Qualified Code(s): I21.A1 - Myocardial infarction type 2 Plan: Demand ischemia, med mgmt - Plan continue antibiotics, social contact worker, respiratory therapy, out of bed/ambulate, DVT proph w/SCDs NPO now Continue Cefepime/Bactrim Add Solumedrol 40mg IV q6h Add Robitussin DM Albuterol MDI Appreciate Pulmonology assistance Saline lock IVF AM Lab: CMP, CBC
[2019-12-31] MEDS ORDERED: Ondansetron PF 4 MG/2 ML Vial IVP PRN (11:14)
--- NOTE | 2019-12-31 11:53 | PRG ---
DATE OF SERVICE: 12/31/2019 SUBJECTIVE: The patient having some abdominal symptoms with bloating. No diarrhea. Mild dyspnea. No chest pain. OBJECTIVE: VITAL SIGNS: His temperature is normal and has been normal since admission. BP 160/98, heart rate 90, and O2 saturation 93 at 4 L. LUNGS: His exam with tachypnea, rhonchi and inspiratory crackles at the bases. ABDOMEN: Some tenderness in abdominal area, some distention. SKIN AND MUSCULOSKELETAL: Normal. LABORATORY DATA: COVID antibody was negative. This is probably around 8 or 9 days after development of symptoms. White cell count remains elevated with thrombocytosis and a predominance of mature neutrophils, the bands are down to 4 now. Chemistry with elevation, AST, ALT, and alkaline phosphatase. Albumin 3.4. Hepatitis C, HIV serology negative. Legionella pneumophila antigen negative x2. Microbiology negative. Acid-fast stain pending cultures in one sample. All blood cultures negative thus far. The patient had an abdomen CT performed. The manager wastewater of the report is not ready. I looked at the images, small bowel was somewhat dilated with fluid, probably responsible for the patient's symptoms of distention, but I did not see any other abnormalities. Awaiting on the final manager wastewater of the radiologist interpretation. There is a pathology from the sputum from December 29 with no Pneumocystis organisms as expected since the patient is HIV negative. ASSESSMENT AND DISCUSSION: History of hypertension, diffuse pneumonitis with negative SARS-CoV, RT-PCR x2 and negative antibody and also hemoptysis. So now, our attention will turn to other etiologies that could explain the patient's clinical illness including atypical infections and noninfectious disorders. The workup has been initiated and Dr. Ruby has ordered a number of additional tests to evaluate the above possibilities. He may require invasive study to obtain sampling for further testing depending on the results of the pending assays and serologies. Job ID: [id number]
--- NOTE | 2019-12-31 12:00 | CT ---
CT OF THE ABDOMEN WITH IV CONTRAST: INDICATION: A 54-year-old male with abdominal distention. COMPARISON: Prior CTA of the chest dated 12/22/2019. FINDINGS: There is again seen multifocal pneumonia with slightly more consolidation present involving the right middle lobe laterally. There is fatty infiltration of the liver. The gallbladder is surgically absent. The pancreas, adrenal glands, and spleen appear within normal limits. The kidneys are normal-appearing. There are dilated loops of small bowel within the abdomen with a suggested transition zone in the right lower quadrant of the abdomen. There is a normal retr ocecal appendix. There are scattered vascular calcifications. No free air or free fluid is evident. No acute osseous abnormality is evident. IMPRESSION: 1. Worsening multifocal pneumonia. 2. Moderate partial small bowel obstruction of transitional zone in the lower quadrant of the abdome n. 3. Fatty liver. POS: [facility]
[2019-12-31] MEDS: cloNIDine 0.1 MG TAB PO PRN ×2 (12:15→18:00)
[2019-12-31] MEDS: Bisacodyl 10 MG SUPP PR SCH ×2 (14:00→20:43)
[2019-12-31] MEDS: Albuterol 200 PUFF (6.7GM INHALER) INH SCH ×2 (14:01→19:30)
[2019-12-31] MEDS ORDERED: Iopamidol 370 76% 100 ML VIAL ONE (14:31)
[2019-12-31] MEDS ORDERED: hydrALAZINE 20 MG/ML VIAL SLOW IVP PRN (14:46)
--- NOTE | 2019-12-31 15:00 | PRG ---
DATE OF SERVICE: 12/31/2019 Mr. Hemphill is in no distress. His autoimmune serology, hypersensitivity pneumonitis panel, and other studies are not back. His COVID serology as mentioned before was negative. His Legionella antigen was negative. His HIV 2 days ago was negative. His hepatitis panel is negative. He had no red cells in his urine. He did have a sedimentation rate of 127. Today, his white count is 19, platelets 640. He is complaining of abdominal distention. When I walked in the room this afternoon, he was throwing up in the trash can after CT of his abdomen. CT of his abdomen showed finding suggestive of partial small bowel obstruction. I have put in some orders for some nausea medications. If this does not lead to improvement, he may need an NG tube. His lungs, heart, and abdomen are otherwise unchanged. Lung bases show consolidation. He may need a bronchoscopy at some point. He would have to be intubated to undergo bronchoscopy at this point, and if we find that he has a high titer autoimmune/vasculitis serology, bronchoscopy can be avoided. We will continue to follow. He still has almost a miliary pattern on his CT with more of an alveolar consolidation in either his anterior right lower lobe or his lateral segment of his middle lobe. I suppose this could still be disseminated histoplasmosis [place]. Hypersensitivity pneumonitis will look like this as well. Hopefully, we will have the serology back here in a day or two. Job ID: [id number]
[2019-12-31] MEDS: Ondansetron ODT 8 MG TAB SL SCH ×2 (17:49→19:29)
--- NOTE | 2019-12-31 18:31 | PDOC.BPN ---
- Brief Progress Note Encounter Date: 12/31/19 Encounter Time: 19:30 CT abd showing partial SBO, will place NGT LIWS, continue NPO status, serial abd exams, Zofran IV PRN
[2019-12-31 22:13] LABS: QuantiFERON-TB Gold Plus Indeterminate (Negative)
[2019-12-31 23:12] LABS: Mycoplasma pneumoniae IgG AB 828 U/mL (0-99); Mycoplasma pneumoniae IgM AB Less than 770 U/mL (0-769)
[2020-01-01] MEDS: Cefepime 1 GM in Sodium Chloride 0.9% 100 ML IVPB SCH ×3 (00:03→23:07)
[2020-01-01] MEDS: Albuterol 200 PUFF (6.7GM INHALER) INH SCH ×7 (00:05→23:08)
[2020-01-01] MEDS: methylPREDNISolone Sod Succ 40 MG VIAL IVP SCH ×5 (00:07→23:08)
[2020-01-01] MEDS: Bisacodyl 10 MG SUPP PR SCH ×3 (06:53→20:12)
[2020-01-01 08:13] LABS: ALT (SGPT) 94 U/L (8-55); AST (SGOT) 23 U/L (5-34); Albumin 3.3 g/dL (3.5-5.0); Alkaline Phosphatase 96 U/L (40-110); Anion Gap 15 mmol/L (10-20); BUN (Urea Nitrogen) 19 mg/dL (8.4-25.7); Bilirubin, Total 0.4 mg/dL (0.2-1.2); Calc. Creatinine Clearance 129 mL/min (70-130); Calcium 8.7 mg/dL (7.8-10.44); Carbon Dioxide 24 mmol/L (22-29); Chloride 100 mmol/L (98-107); Estimated GFR-MDRD 82; Globulin 3.7 g/dL (2.4-3.5); Glucose 132 mg/dL (70-105); Potassium 5.2 mmol/L (3.5-5.1); Sodium 134 mmol/L (136-145)
[2020-01-01 08:24] LABS: Hemoglobin 13.5 g/dL (14.0-18.0); Mean Corpuscular HGB CONC 33.1 g/dL (32.0-36.0); Mean Corpuscular Hemoglobin 31.2 pg (27.0-31.0); Mean Corpuscular Volume 94.3 fL (78.0-98.0); Mean Platelet Volume 6.7 fL (7.4-10.4); Platelet Count 650 thou/uL (130-400); RBC Distribution Width 11.9 % (11.5-14.5); Red Blood Cell (RBC) Count 4.32 mill/uL (4.70-6.10); White Blood Cell (WBC) Count 19.1 thou/uL (4.8-10.8)
[2020-01-01 08:35] LABS: Band 7 % (5-11); Lymphocytes 9 % (21-51); MDiff Complete? YES; Metamyelocyte 1 % (0-0); Monocytes 4 % (0-10); Myelocyte 1 % (0-0); Neutrophil 76 % (42-75); Platelet Morphology Comment Appears Increased; Polychromasia SLIGHT = 2-3 cells (100X) (0-2/hpf); Reactive Lymphocytes 2 % (0-10)
[2020-01-01] MEDS: Ondansetron ODT 8 MG TAB SL SCH ×4 (09:31→20:02)
[2020-01-01] MEDS: Amlodipine 5 MG TAB PO SCH (09:31)
[2020-01-01] MEDS: Famotidine 20 MG TAB PO SCH ×2 (09:31→20:02)
--- NOTE | 2020-01-01 10:09 | PRG ---
DATE OF SERVICE: 01/01/2020 SUBJECTIVE: Zeyad Hemphill had an NG tube placed last night. It looks like he had about 0.5 L suctioned out of his stomach. That was removed and he threw up after that and said his stomach feels much better. He is still distended. His abdomen is only minimally tender. OBJECTIVE: LUNGS: Clear and distant. HEART: Regular rhythm. EXTREMITIES: Without edema. LABORATORY DATA: White count 19.1, hemoglobin 13.5, platelets 650. Electrolytes: Sodium 134, potassium 5.2, chloride 100, bicarb 24, BUN 19, creatinine 1.12. ASSESSMENT AND PLAN: His vasculitis serology is still pending. Mycoplasma IgG was high, but the IgM titer was within the normal range. I doubt we are dealing with Mycoplasma. He actually had a course of Levaquin which should have treated Mycoplasma prior to his admission here. I will defer to Dr. Perez. Adding doxycycline not be unreasonable. If vasculitis serologies nonrevealing and hypersensitivity pneumonitis panel is negative, he may require surgical lung biopsy next week as I have explained to him. His issues with his abdomen are more important to him. Right now, he feels great, but he is also at risk for recurrence of the same symptoms. Gastroenterology or General Surgery might be consulted if the symptoms recur. Job ID: [id number]
--- NOTE | 2020-01-01 10:47 | PDOC.HOSPP ---
- Subjective Encounter Date: 01/01/20 Encounter Time: 10:30 Subjective: f/u for SBO/PNA s/p NGT decompression and feeling much better. + BM and flatus. Receiving Cefepime/Bactrim currently and still has some dry cough. - Objective Vital Signs & Weight: Vital Signs (12 hours) Temp Pulse Resp BP Pulse Ox 01/01/20 09:31 80 01/01/20 05:09 80 18 126/83 94 L 01/01/20 04:00 98.3 F 77 18 149/84 H 95 01/01/20 00:00 98.3 F 77 20 149/84 H 95 Weight Weight 270 lb 1.06 oz Most Recent Monitor Data Heart Rate from ECG 97 NIBP 170/99 NIBP BP-Mean 122 Respiration from ECG 23 SpO2 92 I&O: 12/31/19 01/01/20 01/02/20 06:59 06:59 06:59 Intake Total 2000 3540 Output Total 2700 300 Balance -700 3240 Result Diagrams: 01/01/20 07:28 01/01/20 07:28 Additional Labs: Microbiology 12/29/19 00:49 Sputum Direct Acid Fast Bacilli Smear - Final 12/29/19 00:49 Sputum Acid Fast Bacilli Culture - Preliminary Specimen has been received and culture in progress. No Growth to date. Laboratory Tests 12/28/19 12/28/19 12/28/19 05:27 07:55 07:55 WBC Hgb Plt Count ESR Westergren Potassium Lactic Acid 1.1 AST 76 H ALT 101 H Alkaline Phosphatase Lactate Dehydrogenase Troponin I 0.045 H HIV 1&2 Antigen & Ab Ur L.pneumophila Ag M.pneumoniae IgG Titer M.pneumoniae IgM Titer SARS-CoV-2 Rap RNA(RT-PCR) SARS-CoV-2 IgG Ab SARS-CoV-2 IgG Ab Index 12/28/19 12/28/19 12/28/19 07:55 09:08 11:01 WBC Hgb Plt Count ESR Westergren Potassium Lactic Acid AST ALT Alkaline Phosphatase Lactate Dehydrogenase 254 H Troponin I 0.039 H HIV 1&2 Antigen & Ab Ur L.pneumophila Ag M.pneumoniae IgG Titer M.pneumoniae IgM Titer SARS-CoV-2 Rap RNA(RT-PCR) Not Detected SARS-CoV-2 IgG Ab SARS-CoV-2 IgG Ab Index 12/28/19 12/29/19 12/29/19 14:50 02:07 03:13 WBC Hgb Plt Count ESR Westergren Potassium Lactic Acid AST 75 H ALT 95 H Alkaline Phosphatase Lactate Dehydrogenase Troponin I 0.023 HIV 1&2 Antigen & Ab Ur L.pneumophila Ag Negative M.pneumoniae IgG Titer M.pneumoniae IgM Titer SARS-CoV-2 Rap RNA(RT-PCR) SARS-CoV-2 IgG Ab SARS-CoV-2 IgG Ab Index 12/29/19 12/29/19 12/29/19 03:13 12:51 12:55 WBC 18.9 H Hgb 11.5 L Plt Count ESR Westergren 127 H Potassium Lactic Acid AST ALT Alkaline Phosphatase Lactate Dehydrogenase Troponin I HIV 1&2 Antigen & Ab Ur L.pneumophila Ag M.pneumoniae IgG Titer M.pneumoniae IgM Titer SARS-CoV-2 Rap RNA(RT-PCR) SARS-CoV-2 IgG Ab Non-Reactive SARS-CoV-2 IgG Ab Index 0.36 12/29/19 12/29/19 12/29/19 12:55 13:37 Unknown WBC Hgb Plt Count ESR Westergren Potassium Lactic Acid AST ALT Alkaline Phosphatase Lactate Dehydrogenase Troponin I HIV 1&2 Antigen & Ab Non-Reactive Ur L.pneumophila Ag Negative M.pneumoniae IgG Titer 828 H M.pneumoniae IgM Titer Less than 770 SARS-CoV-2 Rap RNA(RT-PCR) SARS-CoV-2 IgG Ab SARS-CoV-2 IgG Ab Index 12/30/19 12/30/19 12/31/19 03:24 03:24 07:31 WBC 13.2 H Hgb 12.0 L Plt Count 470 H ESR Westergren Potassium 5.2 H Lactic Acid AST 118 H 43 H ALT 172 H 138 H Alkaline Phosphatase 118 H 115 H Lactate Dehydrogenase Troponin I HIV 1&2 Antigen & Ab Ur L.pneumophila Ag M.pneumoniae IgG Titer M.pneumoniae IgM Titer SARS-CoV-2 Rap RNA(RT-PCR) SARS-CoV-2 IgG Ab SARS-CoV-2 IgG Ab Index 01/01/20 07:28 WBC Hgb Plt Count ESR Westergren Potassium Lactic Acid AST 23 ALT 94 H Alkaline Phosphatase 96 Lactate Dehydrogenase Troponin I HIV 1&2 Antigen & Ab Ur L.pneumophila Ag M.pneumoniae IgG Titer M.pneumoniae IgM Titer SARS-CoV-2 Rap RNA(RT-PCR) SARS-CoV-2 IgG Ab SARS-CoV-2 IgG Ab Index Hospitalist ROS - Medication Medications: Active Medications Generic Name Dose Route Start Last Admin Trade Name Freq PRN Reason Stop Dose Admin Acetaminophen 650 mg 12/28/19 10:29 12/30/19 20:42 Acetaminophen 325 Mg Tab PO 650 mg Q4H PRN Administration Headache/Fever/Mild Pain (1-3) Albuterol Sulfate 2 puff 12/31/19 14:30 01/01/20 06:53 Albuterol 200 Puff (6.7gm Inhaler) INH 2 puff [id number] KRISTY Administration Amlodipine Besylate 5 mg 12/31/19 09:00 01/01/20 09:31 Amlodipine 5 Mg Tab PO 5 mg DAILY KRISTY Administration Benzonatate 100 mg 12/29/19 02:41 12/30/19 11:09 Benzonatate 100 Mg Cap PO 100 mg TIDPRN PRN Administration Cough Bisacodyl 10 mg 12/31/19 14:00 01/01/20 06:53 Bisacodyl 10 Mg Supp MS 10 mg Q8HR KRISTY Administration Clonidine 0.1 mg 12/30/19 10:45 12/31/19 18:00 Clonidine 0.1 Mg Tab PO 0.1 mg Q4H PRN Administration SBP>170 & DBP>100 Famotidine 20 mg 12/28/19 21:00 01/01/20 09:31 Famotidine 20 Mg Tab PO 20 mg BID KRISTY Administration Guaifenesin/Dextromethorphan 15 ml 12/29/19 12:49 12/29/19 20:37 Guaifenesin Dm 100-10/5 Ml Udcup PO 15 ml Q4H PRN Administration Cough Hydralazine HCl 20 mg 12/31/19 14:46 12/31/19 14:57 Hydralazine 20 Mg/Ml Vial SLOW IVP 20 mg Q4H PRN Administration SBP Greater Than 170 Cefepime HCl 1 gm/ Sodium 100 mls @ 200 mls/hr 12/28/19 12:00 01/01/20 00:03 Chloride IVPB 100 mls 0000,1200 KRISTY Administration Trimethoprim/Sulfamethoxazole 500 mls @ 250 mls/hr 12/29/19 18:00 01/01/20 06:53 240 mg/ Dextrose/Water IVPB 500 mls Q6HR KRISTY Administration Methylprednisolone Sodium Succinate 40 mg 01/01/20 01:00 01/01/20 06:54 Methylprednisolone Sod Succ 40 Mg Vial IVP 40 mg 0100,0700,1300,1900 KRISTY Administration Ondansetron HCl 4 mg 12/31/19 11:14 12/31/19 12:14 Ondansetron Pf 4 Mg/2 Ml Vial IVP 4 mg Q6H PRN Administration Nausea/Vomiting Ondansetron HCl 8 mg 12/31/19 17:00 01/01/20 09:31 Ondansetron Odt 8 Mg Tab SL 8 mg QID KRISTY Administration Sodium Chloride 10 ml 12/30/19 09:00 01/01/20 09:32 Flush - Normal Saline 10 Ml Syringe IVF 10 ml Q12HR KRISTY Administration - Exam General Appearance: NAD, awake alert Eye: PERRL, anicteric sclera ENT: normocephalic atraumatic, no oropharyngeal lesions Neck: supple, symmetric, no JVD, no thyromegaly, no lymphadenopathy Heart: RRR, no gallops, no rubs, normal peripheral pulses Heart - other findings: S1, S2 Respiratory: normal chest expansion, no tachypnea Respiratory - other findings: few scattered rhonchi/wheezes Gastrointestinal: soft, non-tender, non-distended, normal bowel sounds, no palpable masses, no guarding, no rigidity Extremities: no cyanosis, no clubbing, no edema Skin: normal turgor, no lesions Neurological: cranial nerve grossly intact, no new deficit Musculoskeletal: normal tone, normal strength, no muscle wasting Psychiatric: normal affect, A&O x 3 Hosp A/P (1) Atypical pneumonia Code(s): J18.9 - PNEUMONIA, UNSPECIFIED ORGANISM Status: Acute Plan: ? Mycoplasma component, continue Cefepime/Bactrim, start Zithromax 500mg IV daily (2) Acute respiratory failure with hypoxia Code(s): J96.01 - ACUTE RESPIRATORY FAILURE WITH HYPOXIA Status: Acute Plan: Improved, continue O2 supplementation, wean as clinically indicated (3) Ileus Code(s): K56.7 - ILEUS, UNSPECIFIED Status: Acute Plan: Resolving, NGT removed, start clear liquids, bowel regimen (4) Transaminitis Code(s): R74.01 - ELEVATION OF LEVELS OF LIVER TRANSAMINASE LEVELS Status: Acute (5) Hemoptysis Code(s): R04.2 - HEMOPTYSIS Status: Acute (6) Hypertension Code(s): I10 - ESSENTIAL (PRIMARY) HYPERTENSION Status: Chronic (7) Myocardial infarction Code(s): I21.9 - ACUTE MYOCARDIAL INFARCTION, UNSPECIFIED Status: Acute Qualifiers: Myocardial infarction type: type 2 Qualified Code(s): I21.A1 - Myocardial infarction type 2 - Plan continue antibiotics, social media campaign manager, respiratory therapy, DVT proph w/SCDs NPO now Continue Cefepime/Bactrim Add Zithromax 500mg IV daily Add Solumedrol 40mg IV q6h Add Robitussin DM Albuterol MDI Appreciate Pulmonology assistance Start Clear Liquids ADAT Saline lock IVF AM Lab: CMP, CBC
[2020-01-01] MEDS ORDERED: Simethicone Chewable 80 MG TAB PO PRN (10:52)
[2020-01-01] MEDS: Azithromycin 500 MG in Sodium Chloride 0.9% 250 ML 250 ML IVPB SCH (12:44)
--- NOTE | 2020-01-01 16:09 | PRG ---
DATE OF SERVICE: 01/01/2020 SUBJECTIVE: Mr. Hemphill is still quite dyspneic at rest, sitting up next to the trash can because he is coughing with quite a bit of sputums with dried blood in it per his description. No headaches. No back pain. No abdominal pain. No genitourinary symptoms. He has had no fever, but he is on heavy dose of corticosteroids. OBJECTIVE: GENERAL: He is awake, alert, and oriented. HEENT: Ocular movements normal. Sclerae are normal. LUNGS: With somewhat coarse breath sounds, but no obvious crackles or wheezing. HEART: S1 and S2. Regular rate. No S3 or S4. ABDOMEN: Soft, not distended or tender. No ascites. No bladder distention. EXTREMITIES: No joint inflammatory activity. No edema. NEURO: Nonfocal. LABORATORY DATA: Hepatitis serology nonreactive. HIV negative. Mycoplasma pneumonia IgG was positive, but that is just old infection. SARS-CoV PCR x2 negative. Antibody nonreactive and QuantiFERON was indeterminate. Sodium 134, creatinine 1.12. ALT is down to 94, AST 23, alkaline phosphatase 96, albumin 3.3. White cell count 19.1, hemoglobin 13, platelets 650, 76% neutrophils. The autoimmune/vasculitis assays are pending at this time. ASSESSMENT AND DISCUSSION: Hypertension and diffuse pneumonitis with negative SARS-CoV x2 and negative antibody. Continues with respiratory difficulty with hemoptysis. ANCA/SATYA panel negative. 1 AFB neg thus far. We will go ahead and submit Karius test. Job ID: [id number] MTDD
[2020-01-01 16:15] LABS: Cytoplasmic (C-ANCA) <1:20 titer (Neg:<1:20); Myeloperoxidase AutoAbs <9.0 U/mL (0.0-9.0); Perinuclear (P-ANCA) <1:20 titer (Neg:<1:20); Proteinase-3 AutoAbs Less than 3.5 U/mL (0.0-3.5)
[2020-01-02] MEDS: Albuterol 200 PUFF (6.7GM INHALER) INH SCH ×6 (01:42→21:30)
[2020-01-02] MEDS: Melatonin 3 MG TAB PO PRN ×2 (01:43→21:30)
[2020-01-02] MEDS: Bisacodyl 10 MG SUPP PR SCH ×3 (06:21→21:31)
[2020-01-02] MEDS: methylPREDNISolone Sod Succ 40 MG VIAL IVP SCH ×3 (06:22→18:41)
[2020-01-02 08:17] LABS: Band 5 % (5-11); Hemoglobin 13.4 g/dL (14.0-18.0); Lymphocytes 12 % (21-51); MDiff Complete? YES; Mean Corpuscular HGB CONC 32.7 g/dL (32.0-36.0); Mean Corpuscular Volume 94.8 fL (78.0-98.0); Mean Platelet Volume 6.5 fL (7.4-10.4); Monocytes 2 % (0-10); Neutrophil 81 % (42-75); Platelet Count 626 thou/uL (130-400); RBC Distribution Width 11.9 % (11.5-14.5); Red Blood Cell (RBC) Count 4.34 mill/uL (4.70-6.10); White Blood Cell (WBC) Count 18.8 thou/uL (4.8-10.8)
[2020-01-02 08:18] LABS: ALT (SGPT) 75 U/L (8-55); AST (SGOT) 20 U/L (5-34); Albumin 3.4 g/dL (3.5-5.0); Alkaline Phosphatase 87 U/L (40-110); Anion Gap 14 mmol/L (10-20); BUN (Urea Nitrogen) 20 mg/dL (8.4-25.7); Bilirubin, Total 0.5 mg/dL (0.2-1.2); Calc. Creatinine Clearance 127 mL/min (70-130); Calcium 8.7 mg/dL (7.8-10.44); Carbon Dioxide 24 mmol/L (22-29); Chloride 101 mmol/L (98-107); Estimated GFR-MDRD 81; Globulin 3.2 g/dL (2.4-3.5); Glucose 133 mg/dL (70-105); Potassium 5.2 mmol/L (3.5-5.1); Protein, Total 6.6 g/dL (6.0-8.3); Sodium 134 mmol/L (136-145)
[2020-01-02] MEDS: Ondansetron ODT 8 MG TAB SL SCH ×4 (09:12→20:08)
[2020-01-02] MEDS: Famotidine 20 MG TAB PO SCH ×2 (09:12→20:08)
[2020-01-02] MEDS: Amlodipine 5 MG TAB PO SCH (09:12)
[2020-01-02] MEDS: Saccharomyces boulardii 250 MG CAP PO SCH (09:12)
[2020-01-02] MEDS: Azithromycin 500 MG in Sodium Chloride 0.9% 250 ML 250 ML IVPB SCH (10:16)
[2020-01-02] MEDS: Cefepime 1 GM in Sodium Chloride 0.9% 100 ML IVPB SCH (11:26)
--- NOTE | 2020-01-02 12:33 | PRG ---
DATE OF SERVICE: 01/02/2020 SUBJECTIVE: This morning, he is complaining of some difficulty breathing and coughing. OBJECTIVE: VITAL SIGNS: Temperature 98, pulse 92, respiratory rate 18, saturation 98% on 4 L, blood pressure 130/86. CHEST: Bilateral rhonchi and crackles. CARDIAC: Normal S1 and S2. No gallops. ABDOMEN: Soft. LABORATORY DATA: White count 18,000, platelet count is normal. Renal function shows creatinine of 1.4. X-ray was very abnormal. Diffuse pulmonary infiltrates with a sedimentation rate of 127. ASSESSMENT: Presumed vasculitis awaiting additional information. He is on high-dose steroids. PLAN: I have added Jozefera to his present region. Continue otherwise present treatment and supportive care. Job ID: [id number]
--- NOTE | 2020-01-02 13:42 | EKG ---
Test Reason : Blood Pressure : / mmHG Vent. Rate : 109 BPM Atrial Rate : 109 BPM P-R Int : 138 ms QRS Dur : 078 ms QT Int : 342 ms P-R-T Axes : 067 052 036 degrees QTc Int : 460 ms Sinus tachycardia Possible Left atrial enlargement Left ventricular hypertrophy Abnormal ECG Confirmed by CHARLENE MOULTON DO ([id number]), web editor ANTOINETTE TOLEDO ([id number]) on 01/02/2020 1:42:00 PM Referred By: Confirmed By:CHARLENE MOULTON DO
--- NOTE | 2020-01-02 16:33 | PDOC.HOSPP ---
- Subjective Encounter Date: 01/02/20 Encounter Time: 16:32 Subjective: Mr. Hemphill was seen today in follow-up of Multi-focal pneumonia, which is thought to be due to vasculitis. He says he feels much better. He has occasional cough, but denies feeling short of breath. He says the abdominal pain he had earlier has improved. - Objective Vital Signs & Weight: Vital Signs (12 hours) Temp Pulse Resp BP Pulse Ox 01/02/20 16:00 92 20 97 01/02/20 12:00 18 96 01/02/20 09:12 92 01/02/20 08:00 98.7 F 96 18 139/80 94 L Weight Weight 270 lb 1.06 oz Most Recent Monitor Data Heart Rate from ECG 97 NIBP 170/99 NIBP BP-Mean 122 Respiration from ECG 23 SpO2 92 I&O: 01/01/20 01/02/20 01/03/20 06:59 06:59 06:59 Intake Total 3540 2900 Output Total 300 4200 Balance 3240 -1300 Result Diagrams: 01/02/20 07:38 01/02/20 07:38 Hospitalist ROS - Medication Medications: Active Medications Generic Name Dose Route Start Last Admin Trade Name Freq PRN Reason Stop Dose Admin Acetaminophen 650 mg 12/28/19 10:29 12/30/19 20:42 Acetaminophen 325 Mg Tab PO 650 mg Q4H PRN Administration Headache/Fever/Mild Pain (1-3) Albuterol Sulfate 2 puff 12/31/19 14:30 01/02/20 15:50 Albuterol 200 Puff (6.7gm Inhaler) INH 2 puff [id number] KRISTY Administration Amlodipine Besylate 5 mg 12/31/19 09:00 01/02/20 09:12 Amlodipine 5 Mg Tab PO 5 mg DAILY KRISTY Administration Benzonatate 100 mg 12/29/19 02:41 12/30/19 11:09 Benzonatate 100 Mg Cap PO 100 mg TIDPRN PRN Administration Cough Bisacodyl 10 mg 12/31/19 14:00 01/02/20 12:49 Bisacodyl 10 Mg Supp [place] 10 mg Q8HR KRISTY Administration Clonidine 0.1 mg 12/30/19 10:45 12/31/19 18:00 Clonidine 0.1 Mg Tab PO 0.1 mg Q4H PRN Administration SBP>170 & DBP>100 Famotidine 20 mg 12/28/19 21:00 01/02/20 09:12 Famotidine 20 Mg Tab PO 20 mg BID KRISTY Administration Guaifenesin/Dextromethorphan 15 ml 12/29/19 12:49 12/29/19 20:37 Guaifenesin Dm 100-10/5 Ml Udcup PO 15 ml Q4H PRN Administration Cough Hydralazine HCl 20 mg 12/31/19 14:46 12/31/19 14:57 Hydralazine 20 Mg/Ml Vial SLOW IVP 20 mg Q4H PRN Administration SBP Greater Than 170 Cefepime HCl 1 gm/ Sodium 100 mls @ 200 mls/hr 12/28/19 12:00 01/02/20 11:26 Chloride IVPB 100 mls 0000,1200 KRISTY Administration Trimethoprim/Sulfamethoxazole 500 mls @ 250 mls/hr 12/29/19 18:00 01/02/20 12:49 240 mg/ Dextrose/Water IVPB 500 mls Q6HR KRISTY Administration Azithromycin 500 mg/ Sodium 250 mls @ 250 mls/hr 01/01/20 11:00 01/02/20 10:16 Chloride IVPB 250 mls Q24HR KRISTY Administration Melatonin 3 mg 01/02/20 01:32 01/02/20 01:43 Melatonin 3 Mg Tab PO 3 mg HSPRN PRN Administration Insomnia Methylprednisolone Sodium Succinate 40 mg 01/01/20 01:00 01/02/20 12:49 Methylprednisolone Sod Succ 40 Mg Vial IVP 40 mg 0100,0700,1300,1900 KRISTY Administration Ondansetron HCl 4 mg 12/31/19 11:14 12/31/19 12:14 Ondansetron Pf 4 Mg/2 Ml Vial IVP 4 mg Q6H PRN Administration Nausea/Vomiting Ondansetron HCl 8 mg 12/31/19 17:00 01/02/20 12:49 Ondansetron Odt 8 Mg Tab SL Not Given QID KRISTY Saccharomyces Boulardii 250 mg 01/02/20 09:00 01/02/20 09:12 Saccharomyces Boulardii 250 Mg Cap PO 250 mg DAILY KRISTY Administration Sodium Chloride 10 ml 12/30/19 09:00 01/02/20 09:12 Flush - Normal Saline 10 Ml Syringe IVF 10 ml Q12HR KRISTY Administration - Exam Eye: PERRL, anicteric sclera Heart: RRR, no murmur, no gallops, no rubs, normal peripheral pulses Respiratory: CTAB, no wheezes, no rales, no ronchi, normal chest expansion, no tachypnea, normal percussion Gastrointestinal: soft, non-tender, non-distended, normal bowel sounds, no palpable masses, no hepatomegaly Extremities: no cyanosis, no edema Hosp A/P (1) Acute respiratory failure with hypoxia Code(s): J96.01 - ACUTE RESPIRATORY FAILURE WITH HYPOXIA Status: Acute (2) Atypical pneumonia Code(s): J18.9 - PNEUMONIA, UNSPECIFIED ORGANISM Status: Acute (3) Elevated liver enzymes Code(s): R74.8 - ABNORMAL LEVELS OF OTHER SERUM ENZYMES Status: Acute (4) Hypertension Code(s): I10 - ESSENTIAL (PRIMARY) HYPERTENSION Status: Chronic - Plan * Multi-focal pneumonia- possible vascultis- continue High dose steroids * Continue Azithromycin Cefepime, and Bactrim * Work-up is in progress * Will advance his diet * HTN- blood pressure has improved with the addition of Amlodipine
[2020-01-02 17:12] LABS: A. flavus Negative (Neg:<1:1); A. fumigatus Negative (Neg:<1:1); A. niger Negative (Neg:<1:1); Blastomyces AB Negative (Neg:<1:1)
[2020-01-02] MEDS: Mometasone 200 MCG/Formoterol 5 MCG 120 PUFF INHALER INH SCH (18:45)
[2020-01-03] MEDS: Cefepime 1 GM in Sodium Chloride 0.9% 100 ML IVPB SCH ×2 (00:36→12:48)
[2020-01-03] MEDS: methylPREDNISolone Sod Succ 40 MG VIAL IVP SCH ×4 (00:36→18:06)
[2020-01-03] MEDS: Albuterol 200 PUFF (6.7GM INHALER) INH SCH ×6 (05:10→22:07)
[2020-01-03] MEDS: Bisacodyl 10 MG SUPP PR SCH ×4 (06:06→21:14)
[2020-01-03] MEDS: Mometasone 200 MCG/Formoterol 5 MCG 120 PUFF INHALER INH SCH ×2 (07:19→22:06)
[2020-01-03] MEDS: Amlodipine 5 MG TAB PO SCH (08:48)
[2020-01-03] MEDS: Ondansetron ODT 8 MG TAB SL SCH ×4 (08:48→21:10)
[2020-01-03] MEDS: Famotidine 20 MG TAB PO SCH ×2 (08:48→21:02)
[2020-01-03] MEDS: Saccharomyces boulardii 250 MG CAP PO SCH (08:48)
[2020-01-03] MEDS: Azithromycin 500 MG in Sodium Chloride 0.9% 250 ML 250 ML IVPB SCH (10:43)
--- NOTE | 2020-01-03 12:46 | PRG ---
DATE OF SERVICE: 01/03/2020 SUBJECTIVE: Zeyad Hemphill is a 54-year-old gentleman who is doing well. OBJECTIVE: VITAL SIGNS: His temperature is 98, pulse 97, saturations 100% on 2 L, blood pressure 160/104. CHEST: No wheezing, no crackles. CARDIAC: Normal S1, S2. No gallops. ABDOMEN: No masses. ASSESSMENT: Presumed vasculitis, markedly elevated sedimentation rate, abnormal chest x-ray. Awaiting additional lab results. We will switch him over to oral antibiotics. Continue steroids. Job ID: [id number]
--- NOTE | 2020-01-03 17:10 | PDOC.HOSPP ---
- Subjective Encounter Date: 01/03/20 Encounter Time: 17:08 Subjective: Mr. Hemphill was seen today in follow-up of respiratory failure. He says he is breathing better. He has a little cough, and will get " winded " when he is up walking around. - Objective Vital Signs & Weight: Vital Signs (12 hours) Temp Pulse Resp BP Pulse Ox 01/03/20 08:48 97 01/03/20 07:00 98.3 F 75 20 134/88 93 L Weight Weight 270 lb 1.06 oz Most Recent Monitor Data Heart Rate from ECG 97 NIBP 170/99 NIBP BP-Mean 122 Respiration from ECG 23 SpO2 92 I&O: 01/02/20 01/03/20 01/04/20 06:59 06:59 06:59 Intake Total 2900 3200 Output Total 4200 3300 Balance -1300 -100 Result Diagrams: 01/02/20 07:38 01/02/20 07:38 Hospitalist ROS - Medication Medications: Active Medications Generic Name Dose Route Start Last Admin Trade Name Freq PRN Reason Stop Dose Admin Acetaminophen 650 mg 12/28/19 10:29 12/30/19 20:42 Acetaminophen 325 Mg Tab PO 650 mg Q4H PRN Administration Headache/Fever/Mild Pain (1-3) Albuterol Sulfate 2 puff 12/31/19 14:30 01/03/20 13:48 Albuterol 200 Puff (6.7gm Inhaler) INH 2 puff [id number] KRISTY Administration Amlodipine Besylate 5 mg 12/31/19 09:00 01/03/20 08:48 Amlodipine 5 Mg Tab PO 5 mg DAILY KRISTY Administration Benzonatate 100 mg 12/29/19 02:41 12/30/19 11:09 Benzonatate 100 Mg Cap PO 100 mg TIDPRN PRN Administration Cough Bisacodyl 10 mg 12/31/19 14:00 01/03/20 14:17 Bisacodyl 10 Mg Supp OR Not Given Q8HR KRISTY Clonidine 0.1 mg 12/30/19 10:45 12/31/19 18:00 Clonidine 0.1 Mg Tab PO 0.1 mg Q4H PRN Administration SBP>170 & DBP>100 Famotidine 20 mg 12/28/19 21:00 01/03/20 08:48 Famotidine 20 Mg Tab PO 20 mg BID KRISTY Administration Guaifenesin/Dextromethorphan 15 ml 12/29/19 12:49 12/29/19 20:37 Guaifenesin Dm 100-10/5 Ml Udcup PO 15 ml Q4H PRN Administration Cough Hydralazine HCl 20 mg 12/31/19 14:46 12/31/19 14:57 Hydralazine 20 Mg/Ml Vial SLOW IVP 20 mg Q4H PRN Administration SBP Greater Than 170 Trimethoprim/Sulfamethoxazole 500 mls @ 250 mls/hr 12/29/19 18:00 01/03/20 12:49 240 mg/ Dextrose/Water IVPB 500 mls Q6HR KRISTY Administration Melatonin 3 mg 01/02/20 01:32 01/02/20 21:30 Melatonin 3 Mg Tab PO 3 mg HSPRN PRN Administration Insomnia Methylprednisolone Sodium Succinate 40 mg 01/01/20 01:00 01/03/20 12:48 Methylprednisolone Sod Succ 40 Mg Vial IVP 40 mg 0100,0700,1300,1900 KRISTY Administration Mometasone Furoate/Formoterol Fumar 2 puff 01/02/20 18:30 01/03/20 07:19 Mometasone 200 Mcg/Formoterol 5 Mcg 120 Puff Inhaler INH 2 puff BID-RT KRISTY Administration Ondansetron HCl 4 mg 12/31/19 11:14 12/31/19 12:14 Ondansetron Pf 4 Mg/2 Ml Vial IVP 4 mg Q6H PRN Administration Nausea/Vomiting Ondansetron HCl 8 mg 12/31/19 17:00 01/03/20 12:49 Ondansetron Odt 8 Mg Tab SL Not Given QID KRISTY Saccharomyces Boulardii 250 mg 01/02/20 09:00 01/03/20 08:48 Saccharomyces Boulardii 250 Mg Cap PO 250 mg DAILY KRISTY Administration Sodium Chloride 10 ml 12/30/19 09:00 01/03/20 08:48 Flush - Normal Saline 10 Ml Syringe IVF 10 ml Q12HR KRISTY Administration - Exam Eye: PERRL, anicteric sclera Heart: RRR, no murmur, no gallops, no rubs, normal peripheral pulses Respiratory: CTAB (+ occasional rhonchi) Gastrointestinal: soft, non-tender, non-distended, normal bowel sounds, no palpable masses, no hepatomegaly Extremities: no cyanosis, no clubbing, no edema Hosp A/P (1) Acute respiratory failure with hypoxia Code(s): J96.01 - ACUTE RESPIRATORY FAILURE WITH HYPOXIA Status: Acute (2) Atypical pneumonia Code(s): J18.9 - PNEUMONIA, UNSPECIFIED ORGANISM Status: Acute (3) Elevated liver enzymes Code(s): R74.8 - ABNORMAL LEVELS OF OTHER SERUM ENZYMES Status: Acute (4) Hypertension Code(s): I10 - ESSENTIAL (PRIMARY) HYPERTENSION Status: Chronic - Plan * Multi-focal pneumonia- possible vascultis- He notes some improvement- continue Solumedrol * Continue Azithromycin Cefepime, and Bactrim * Work-up is in progress * He may require open lung biopsy, depending on the results of the work-up * HTN- blood pressure is stable
[2020-01-03] MEDS: Doxycycline 100 MG CAP PO SCH (21:02)
[2020-01-04] MEDS: methylPREDNISolone Sod Succ 40 MG VIAL IVP SCH ×4 (00:33→20:33)
[2020-01-04] MEDS: Melatonin 3 MG TAB PO PRN (03:00)
[2020-01-04] MEDS: Albuterol 200 PUFF (6.7GM INHALER) INH SCH ×5 (03:50→19:14)
[2020-01-04] MEDS: Bisacodyl 10 MG SUPP PR SCH ×3 (05:21→21:48)
[2020-01-04] MEDS: Mometasone 200 MCG/Formoterol 5 MCG 120 PUFF INHALER INH SCH ×2 (06:21→22:14)
[2020-01-04 06:35] LABS: Hemoglobin 13.6 g/dL (14.0-18.0); Mean Corpuscular HGB CONC 32.7 g/dL (32.0-36.0); Mean Corpuscular Hemoglobin 30.8 pg (27.0-31.0); Mean Corpuscular Volume 94.3 fL (78.0-98.0); Mean Platelet Volume 6.5 fL (7.4-10.4); Platelet Count 677 thou/uL (130-400); RBC Distribution Width 12.2 % (11.5-14.5); White Blood Cell (WBC) Count 21.6 thou/uL (4.8-10.8)
[2020-01-04 06:42] LABS: Anion Gap 13 mmol/L (10-20); BUN (Urea Nitrogen) 18 mg/dL (8.4-25.7); Calc. Creatinine Clearance 139 mL/min (70-130); Calcium 8.5 mg/dL (7.8-10.44); Carbon Dioxide 24 mmol/L (22-29); Chloride 101 mmol/L (98-107); Estimated GFR-MDRD 90; Glucose 146 mg/dL (70-105); Potassium 5.2 mmol/L (3.5-5.1); Sodium 133 mmol/L (136-145)
[2020-01-04 07:05] LABS: Band 7 % (5-11); Lymphocytes 9 % (21-51); MDiff Complete? YES; Metamyelocyte 1 % (0-0); Monocytes 2 % (0-10); Myelocyte 2 % (0-0); Neutrophil 79 % (42-75); Platelet Morphology Comment Appears Increased
[2020-01-04] MEDS: Doxycycline 100 MG CAP PO SCH ×2 (09:36→20:32)
[2020-01-04] MEDS: Amlodipine 5 MG TAB PO SCH (09:36)
[2020-01-04] MEDS: Famotidine 20 MG TAB PO SCH ×2 (09:36→20:33)
[2020-01-04] MEDS: Saccharomyces boulardii 250 MG CAP PO SCH (09:36)
[2020-01-04] MEDS: Ondansetron ODT 8 MG TAB SL SCH ×4 (09:37→20:32)
[2020-01-04 10:37] LABS: Aspergillus fumigatus Negative (Negative); Aureobasidium pullalans IgG Negative (Negative); Micropolyspora faeni Negative (Negative); Pigeon Droppings IgG Negative (Negative); T sacchari Negative (Negative); T vulgaris Negative (Negative)
--- NOTE | 2020-01-04 16:02 | PRG ---
DATE OF SERVICE: 01/04/2020 SUBJECTIVE: Feeling a little better, still coughing intermittently and gets dyspneic upon effort. No vomiting. No abdominal pain. No diarrhea. OBJECTIVE: VITAL SIGNS: He has been afebrile since admission. O2 saturations are 94 to 97 on 2 L nasal cannula. Other vital signs are normal. GENERAL: He is in no distress. LUNGS: With scattered inspiratory crackles. HEART: S1 and S2, regular rate. ABDOMEN: Soft, not distended or tender. LABORATORY DATA: ANCA titers were negative. White cell count 21.6, hemoglobin 13.6, platelets 677. Creatinine 1.04. ASSESSMENT AND DISCUSSION: Hypertension, diffuse pneumonitis with negative SARS-CoV x2, negative antibody, with some respiratory difficulty persisting, and autoimmune panel negative. Awaiting on the Karius test. May need a bronchoscopy. Job ID: [id number]
--- NOTE | 2020-01-04 16:13 | PDOC.HOSPP ---
- Subjective Encounter Date: 01/04/20 Encounter Time: 16:11 Subjective: Mr. Hemphill was seen today in follow-up of respiratory failure. He does not have any complaints, except for cough and some shortness of breath when he coughs. - Objective Vital Signs & Weight: Vital Signs (12 hours) Temp Pulse Resp BP Pulse Ox 01/04/20 09:36 79 01/04/20 08:27 98.1 F 79 20 130/80 94 L Weight Weight 270 lb 1.06 oz Most Recent Monitor Data Heart Rate from ECG 97 NIBP 170/99 NIBP BP-Mean 122 Respiration from ECG 23 SpO2 92 I&O: 01/03/20 01/04/20 01/05/20 06:59 06:59 06:59 Intake Total 3200 5282 Output Total 3300 2400 Balance -100 2882 Result Diagrams: 01/04/20 05:28 01/04/20 05:28 Hospitalist ROS - Medication Medications: Active Medications Generic Name Dose Route Start Last Admin Trade Name Freq PRN Reason Stop Dose Admin Acetaminophen 650 mg 12/28/19 10:29 12/30/19 20:42 Acetaminophen 325 Mg Tab PO 650 mg Q4H PRN Administration Headache/Fever/Mild Pain (1-3) Albuterol Sulfate 2 puff 12/31/19 14:30 01/04/20 13:21 Albuterol 200 Puff (6.7gm Inhaler) INH Not Given [id number] KRISTY Amlodipine Besylate 5 mg 12/31/19 09:00 01/04/20 09:36 Amlodipine 5 Mg Tab PO 5 mg DAILY KRISTY Administration Benzonatate 100 mg 12/29/19 02:41 12/30/19 11:09 Benzonatate 100 Mg Cap PO 100 mg TIDPRN PRN Administration Cough Bisacodyl 10 mg 12/31/19 14:00 01/04/20 13:00 Bisacodyl 10 Mg Supp [place] Not Given Q8HR KRISTY Clonidine 0.1 mg 12/30/19 10:45 12/31/19 18:00 Clonidine 0.1 Mg Tab PO 0.1 mg Q4H PRN Administration SBP>170 & DBP>100 Doxycycline Hyclate 100 mg 01/03/20 21:00 01/04/20 09:36 Doxycycline 100 Mg Cap PO 01/10/20 21:01 100 mg BID KRISTY Administration Famotidine 20 mg 12/28/19 21:00 01/04/20 09:36 Famotidine 20 Mg Tab PO 20 mg BID KRISTY Administration Guaifenesin/Dextromethorphan 15 ml 12/29/19 12:49 12/29/19 20:37 Guaifenesin Dm 100-10/5 Ml Udcup PO 15 ml Q4H PRN Administration Cough Hydralazine HCl 20 mg 12/31/19 14:46 12/31/19 14:57 Hydralazine 20 Mg/Ml Vial SLOW IVP 20 mg Q4H PRN Administration SBP Greater Than 170 Trimethoprim/Sulfamethoxazole 500 mls @ 250 mls/hr 12/29/19 18:00 01/04/20 12:51 240 mg/ Dextrose/Water IVPB 500 mls Q6HR KRISTY Administration Melatonin 3 mg 01/02/20 01:32 01/04/20 03:00 Melatonin 3 Mg Tab PO 3 mg HSPRN PRN Administration Insomnia Methylprednisolone Sodium Succinate 40 mg 01/01/20 01:00 01/04/20 12:58 Methylprednisolone Sod Succ 40 Mg Vial IVP 40 mg 0100,0700,1300,1900 KRISTY Administration Mometasone Furoate/Formoterol Fumar 2 puff 01/02/20 18:30 01/04/20 06:21 Mometasone 200 Mcg/Formoterol 5 Mcg 120 Puff Inhaler INH Not Given BID-RT KRISTY Ondansetron HCl 4 mg 12/31/19 11:14 12/31/19 12:14 Ondansetron Pf 4 Mg/2 Ml Vial IVP 4 mg Q6H PRN Administration Nausea/Vomiting Ondansetron HCl 8 mg 12/31/19 17:00 01/04/20 13:00 Ondansetron Odt 8 Mg Tab SL Not Given QID KRISTY Saccharomyces Boulardii 250 mg 01/02/20 09:00 01/04/20 09:36 Saccharomyces Boulardii 250 Mg Cap PO 250 mg DAILY KRISTY Administration Sodium Chloride 10 ml 12/30/19 09:00 01/04/20 09:37 Flush - Normal Saline 10 Ml Syringe IVF 10 ml Q12HR KRISTY Administration - Exam Eye: PERRL, anicteric sclera Heart: RRR, no murmur, no gallops, no rubs, normal peripheral pulses Respiratory: CTAB (with occsional rhonchi) Gastrointestinal: soft, non-tender, non-distended, normal bowel sounds, no palpable masses, no hepatomegaly Extremities: no cyanosis, no edema Hosp A/P (1) Acute respiratory failure with hypoxia Code(s): J96.01 - ACUTE RESPIRATORY FAILURE WITH HYPOXIA Status: Acute (2) Atypical pneumonia Code(s): J18.9 - PNEUMONIA, UNSPECIFIED ORGANISM Status: Acute (3) Elevated liver enzymes Code(s): R74.8 - ABNORMAL LEVELS OF OTHER SERUM ENZYMES Status: Acute (4) Hypertension Code(s): I10 - ESSENTIAL (PRIMARY) HYPERTENSION Status: Chronic - Plan * Multi-focal pneumonia- possible vascultis- plan is for open lung biopsy tomorrow * Work-up is in progress * HTN- blood pressure is stable
--- NOTE | 2020-01-04 18:24 | CON ---
DATE OF CONSULTATION: 01/04/2020 HISTORY OF PRESENT ILLNESS: Mr. Hemphill is a 54-year-old gentleman, who has been admitted with the complaint of just not feeling well. He has had negative COVID tests. Chest x-ray and CT scan have shown diffuse interstitial infiltrative disease bilaterally. He has had a persistent cough. He has not had fever since admission. The cough is nonproductive. He has no exposure history. 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 PAST MEDICAL HISTORY: 1. Hypertension. 2. Peptic ulcer disease. PAST SURGICAL HISTORY: EGD with cautery of a bleeding ulcer. SOCIAL HISTORY: He does not use tobacco or alcohol. REVIEW OF SYSTEMS: A 10-point review of systems is performed, is negative, except as above. PHYSICAL EXAMINATION: GENERAL: This is a well-developed, well-nourished man with fitful coughs, resting on the medical unit. VITAL SIGNS: His temperature is 98.1, pulse is 80 and regular, and blood pressure is 130/80, height 62 inches, and weight is 270 pounds. HEENT: Sclerae nonicteric. Pupils equal round bilaterally. NECK: Supple. LUNGS: Amazingly clear. He has no wheezing. HEART: Rhythm is regular without murmur. ABDOMEN: Soft and nontender. There are no masses. EXTREMITIES: No cyanosis, clubbing, or edema. LABORATORY DATA: Of note, his white blood cell count is 21.6, hemoglobin is 13.6, and platelet count 677,000. Potassium is 5.2 and creatinine is 1.04. He has begun immunologic workup, all of which has been negative so far. Fungal serology, hepatitis, TB, and COVID testing have all been negative. ASSESSMENT AND PLAN: Bilateral infiltrative pulmonary disease with cough. I have been asked to see him to obtain tissue as open lung biopsy for pathology and culture. I have discussed this with the patient and he is agreeable for us to proceed tomorrow. Job ID: [id number]
--- NOTE | 2020-01-04 20:14 | PRG ---
DATE OF SERVICE: 01/04/2020 SUBJECTIVE: Zeyad Hemphill still continues with a dry cough. OBJECTIVE: VITAL SIGNS: He is not febrile. Heart rates in 80s, respiratory rates in the teens, oximetry is 94 on 2 L cannula, blood pressure 131/81. LUNGS: Clear. HEART: Regular rhythm. No murmur. ABDOMEN: Soft. IMPRESSION: Diffuse reticulonodular infiltrates with a relatively acute onset. It is very atypical for an infectious process. I do believe a surgical lung biopsy is the next step unfortunately. Job ID: [id number]
[2020-01-05] MEDS: Albuterol 200 PUFF (6.7GM INHALER) INH SCH ×7 (00:11→23:46)
[2020-01-05] MEDS: methylPREDNISolone Sod Succ 40 MG VIAL IVP SCH ×4 (01:47→19:09)
[2020-01-05] MEDS ORDERED: Fentanyl 100 MCG/2 ML VIAL ONE ×2 (06:31→08:59)
[2020-01-05] MEDS ORDERED: EPINEPHrine 1 MG/ML AMP ONE (06:36)
[2020-01-05] MEDS ORDERED: Bupivacaine PF 0.5% 30 ML VIAL ONE (06:36)
[2020-01-05] MEDS ORDERED: CEFAZOLIN 2 GM in Premix Bag 1 BAG IVPB SCH (07:30)
[2020-01-05] MEDS: Mometasone 200 MCG/Formoterol 5 MCG 120 PUFF INHALER INH SCH ×2 (07:45→19:33)
[2020-01-05] MEDS: Bisacodyl 10 MG SUPP PR SCH ×3 (07:56→22:03)
[2020-01-05] MEDS ORDERED: Promethazine HCl 25 MG/ML VIAL IM PRN ×2 (08:54→10:57)
[2020-01-05] MEDS ORDERED: Promethazine HCl 25 MG/ML VIAL SLOW IVP PRN (08:54)
[2020-01-05] MEDS ORDERED: Ondansetron HCl/PF 4 MG/2 ML Vial IVP PRN (08:54)
--- NOTE | 2020-01-05 09:00 | OP ---
DATE OF PROCEDURE: 01/05/2020 PREOPERATIVE DIAGNOSIS: Bilateral infiltrative disease. POSTOPERATIVE DIAGNOSIS: Bilateral infiltrative disease. PROCEDURES PERFORMED: Right thoracoscopy with right lower lobe and right middle lobe wedge resection for pathologic exam. ANESTHESIA: General endotracheal, Dr. Bert Cabello. ESTIMATED BLOOD LOSS: Less than 50. DRAINS: [place] drain x1. SPECIMENS: Pathologic specimen sent for culture - bacterial, fungal, and AFB and routine pathologic exam. DESCRIPTION OF PROCEDURE: After consent was obtained, the patient was brought to the operating room and placed in supine position on the operating room table. Appropriate central line and monitors were placed and general endotracheal anesthesia was induced. The patient was placed in the left lateral decubitus position. Joints were appropriately padded and SCDs used. Three port incisions were made in the right chest wall after prepped and draped. The scope was inserted and agency service representative samples were taken from the middle lobe and lower lobe. These were removed, divided and sent for culture and path. Wounds were infiltrated with 0.5% Marcaine with epinephrine. Hemostasis was ensured. A [place] drain was placed through the anterior port site. The wounds were then closed in layers. The patient was awakened, extubated, and transferred to the recovery room in stable condition. Needle, sponge, and instrument counts were all reported as correct at the end of the procedure. Job ID: [id number]
--- NOTE | 2020-01-05 09:04 | RAD ---
EXAM: Single view of the chest HISTORY: Status post thoracotomy COMPARISON: 12/28/2019 FINDINGS: Single view of the chest shows an enlarged but stable cardiomediastinal silhouette. Diffus e increased interstitial markings are present. There is a right-sided chest tube with a tiny right apical pneumothorax. There is an area of airspace opacity in the right lung. No pleural effusion is seen. No acute osseous abnormality. IMPRESSION: 1. Status post right thoracotomy with tiny right apical pneumothorax 2. Multifocal pneumonia.
[2020-01-05] MEDS ORDERED: Dexamethasone 20 MG/5 ML VIAL ONE (09:18)
[2020-01-05] MEDS ORDERED: Ketorolac Tromethamine 30 MG/ML VIAL ONE (09:18)
[2020-01-05] MEDS ORDERED: Lidocaine 1% PF 5 ML VIAL ONE (09:18)
[2020-01-05] MEDS ORDERED: Ondansetron PF 4 MG/2 ML Vial ONE (09:18)
[2020-01-05] MEDS ORDERED: PROPOFOL 200 MG/20 ML VIAL ONE (09:18)
[2020-01-05] MEDS ORDERED: Glycopyrrolate 0.2 MG/ML 5 ML SYRINGE ONE (09:18)
[2020-01-05] MEDS ORDERED: Rocuronium Bromide 10 MG/ML (10ML VIAL) ONE (09:18)
[2020-01-05] MEDS ORDERED: HYDROcodone/Acetaminophen 5/325 mg Tablet PO PRN (10:57)
[2020-01-05] MEDS ORDERED: Fentanyl 100 MCG/2 ML VIAL SLOW IVP PRN (10:57)
[2020-01-05] MEDS ORDERED: Ondansetron PF 4 MG/2 ML Vial IVP PRN (10:57)
[2020-01-05] MEDS: Amlodipine 5 MG TAB PO SCH (11:06)
[2020-01-05] MEDS: Saccharomyces boulardii 250 MG CAP PO SCH (11:06)
[2020-01-05] MEDS: Ondansetron ODT 8 MG TAB SL SCH ×4 (11:06→20:20)
[2020-01-05] MEDS: Famotidine 20 MG TAB PO SCH ×2 (11:06→20:20)
[2020-01-05] MEDS: Doxycycline 100 MG CAP PO SCH ×2 (11:06→20:20)
[2020-01-05] MEDS: CEFAZOLIN 2 GM in Premix Bag 1 BAG IVPB SCH ×3 (11:36→16:17)
[2020-01-05] MEDS: HYDROcodone/Acetaminophen 5/325 mg Tablet PO PRN (11:43)
--- NOTE | 2020-01-05 16:03 | PDOC.HOSPP ---
- Subjective Encounter Date: 01/05/20 Encounter Time: 16:01 Subjective: Mr. Hemphill was seen today in follow-up of respiratory failure. He is back from the open lung biopsy. He is having 10/10 pain in his right side. Fentanyl is only partially helping. - Objective Vital Signs & Weight: Vital Signs (12 hours) Temp Pulse Resp BP Pulse Ox 01/05/20 11:06 68 01/05/20 04:32 97.8 F 68 20 135/85 95 Weight Weight 270 lb 1.06 oz Most Recent Monitor Data Heart Rate from ECG 97 NIBP 170/99 NIBP BP-Mean 122 Respiration from ECG 23 SpO2 92 I&O: 01/04/20 01/05/20 01/06/20 06:59 06:59 06:59 Intake Total 5282 3800 Output Total 2400 3175 Balance 2882 625 Result Diagrams: 01/04/20 05:28 01/04/20 05:28 Hospitalist ROS - Medication Medications: Active Medications Generic Name Dose Route Start Last Admin Trade Name Freq PRN Reason Stop Dose Admin Acetaminophen 650 mg 12/28/19 10:29 12/30/19 20:42 Acetaminophen 325 Mg Tab PO 650 mg Q4H PRN Administration Headache/Fever/Mild Pain (1-3) Hydrocodone Bitart/Acetaminophen 2 tab 01/05/20 10:57 01/05/20 11:43 Hydrocodone/Acetaminophen 5/325 Mg Tablet PO 2 tab Q4H PRN Administration Moderate Pain (4-6) Albuterol Sulfate 2 puff 12/31/19 14:30 01/05/20 14:01 Albuterol 200 Puff (6.7gm Inhaler) INH Not Given [id number] KRISTY Amlodipine Besylate 5 mg 12/31/19 09:00 01/05/20 11:06 Amlodipine 5 Mg Tab PO 5 mg DAILY KRISTY Administration Benzonatate 100 mg 12/29/19 02:41 12/30/19 11:09 Benzonatate 100 Mg Cap PO 100 mg TIDPRN PRN Administration Cough Bisacodyl 10 mg 12/31/19 14:00 01/05/20 13:41 Bisacodyl 10 Mg Supp [place] Not Given Q8HR KRISTY Clonidine 0.1 mg 12/30/19 10:45 12/31/19 18:00 Clonidine 0.1 Mg Tab PO 0.1 mg Q4H PRN Administration SBP>170 & DBP>100 Doxycycline Hyclate 100 mg 01/03/20 21:00 01/05/20 11:06 Doxycycline 100 Mg Cap PO 01/10/20 21:01 100 mg BID KRISTY Administration Famotidine 20 mg 12/28/19 21:00 01/05/20 11:06 Famotidine 20 Mg Tab PO 20 mg BID KRISTY Administration Fentanyl 50 mcg 01/05/20 10:57 01/05/20 13:35 Fentanyl 100 Mcg/2 Ml Vial SLOW IVP 50 mcg Q2H PRN Administration Severe Pain (7-10) Guaifenesin/Dextromethorphan 15 ml 12/29/19 12:49 12/29/19 20:37 Guaifenesin Dm 100-10/5 Ml Udcup PO 15 ml Q4H PRN Administration Cough Hydralazine HCl 20 mg 12/31/19 14:46 12/31/19 14:57 Hydralazine 20 Mg/Ml Vial SLOW IVP 20 mg Q4H PRN Administration SBP Greater Than 170 Trimethoprim/Sulfamethoxazole 500 mls @ 250 mls/hr 01/04/20 22:00 01/05/20 11:45 240 mg/ Dextrose/Water IVPB 500 mls 0400,1000,1600,2200 KRISTY Administration Melatonin 3 mg 01/02/20 01:32 01/04/20 03:00 Melatonin 3 Mg Tab PO 3 mg HSPRN PRN Administration Insomnia Methylprednisolone Sodium Succinate 40 mg 01/01/20 01:00 01/05/20 13:21 Methylprednisolone Sod Succ 40 Mg Vial IVP 40 mg 0100,0700,1300,1900 KRISTY Administration Mometasone Furoate/Formoterol Fumar 2 puff 01/02/20 18:30 01/05/20 07:45 Mometasone 200 Mcg/Formoterol 5 Mcg 120 Puff Inhaler INH Not Given BID-RT KRISTY Ondansetron HCl 8 mg 12/31/19 17:00 01/05/20 13:27 Ondansetron Odt 8 Mg Tab SL Not Given QID KRISTY Saccharomyces Boulardii 250 mg 01/02/20 09:00 01/05/20 11:06 Saccharomyces Boulardii 250 Mg Cap PO 250 mg DAILY KRISTY Administration Sodium Chloride 10 ml 12/30/19 09:00 01/05/20 11:07 Flush - Normal Saline 10 Ml Syringe IVF 10 ml Q12HR KRISTY Administration Sodium Chloride 10 ml 12/30/19 06:15 01/05/20 13:36 Flush - Normal Saline 10 Ml Syringe IVF 10 ml PRN PRN Administration Saline Flush - Exam Eye: PERRL, anicteric sclera Heart: RRR, no murmur, no gallops, no rubs, normal peripheral pulses Respiratory: rales (at the bases) Respiratory - other findings: chest tube in place Gastrointestinal: soft, non-tender, non-distended, normal bowel sounds, no palpable masses Extremities: no cyanosis, no edema Hosp A/P (1) Acute respiratory failure with hypoxia Code(s): J96.01 - ACUTE RESPIRATORY FAILURE WITH HYPOXIA Status: Acute (2) Atypical pneumonia Code(s): J18.9 - PNEUMONIA, UNSPECIFIED ORGANISM Status: Acute (3) Elevated liver enzymes Code(s): R74.8 - ABNORMAL LEVELS OF OTHER SERUM ENZYMES Status: Acute (4) Hypertension Code(s): I10 - ESSENTIAL (PRIMARY) HYPERTENSION Status: Chronic - Plan * Multi-focal pneumonia- possible vascultis- patient is s/p open lung biopsy * Symptom management- will add Toradol and Gaapentin * HTN- blood pressure is stable * Await pathology results.
[2020-01-05] MEDS: Ketorolac Tromethamine 30 MG/ML VIAL IVP PRN ×2 (16:16→21:58)
[2020-01-05] MEDS: Gabapentin 100 MG CAP PO SCH (20:20)
[2020-01-06] MEDS: methylPREDNISolone Sod Succ 40 MG VIAL IVP SCH ×4 (00:55→18:27)
[2020-01-06] MEDS: CEFAZOLIN 2 GM in Premix Bag 1 BAG IVPB SCH ×2 (00:55→08:15)
[2020-01-06] MEDS: Albuterol 200 PUFF (6.7GM INHALER) INH SCH ×6 (03:25→23:00)
[2020-01-06] MEDS: Ketorolac Tromethamine 30 MG/ML VIAL IVP PRN ×3 (06:10→20:36)
[2020-01-06] MEDS: Bisacodyl 10 MG SUPP PR SCH ×3 (06:19→21:43)
[2020-01-06] MEDS: Mometasone 200 MCG/Formoterol 5 MCG 120 PUFF INHALER INH SCH ×2 (07:22→19:30)
--- NOTE | 2020-01-06 07:51 | RAD ---
Chest one view HISTORY: Thoracotomy. Follow-up. COMPARISON: 01/05/2020. FINDINGS: Cardiac silhouette is magnified and upper limits of normal in size. Pulmonary vasculature a lso upper limits of normal. Mediastinum is midline. Rounded opacity likely representing atelectasis at the right base is unchange d in appearance. Very small right apical pneumothorax. Right thoracostomy tube in place, directed towards the right apex. Left lung is clear. IMPRESSION : Postoperative changes of the right chest, including small right apical pneumothorax are stable. Borderline pulmonary vascular congestion.
[2020-01-06 08:34] LABS: Hemoglobin 10.6 g/dL (14.0-18.0); Mean Corpuscular HGB CONC 33.3 g/dL (32.0-36.0); Mean Corpuscular Hemoglobin 31.7 pg (27.0-31.0); Mean Corpuscular Volume 95.2 fL (78.0-98.0); Mean Platelet Volume 6.8 fL (7.4-10.4); Platelet Count 595 thou/uL (130-400); RBC Distribution Width 12.2 % (11.5-14.5); Red Blood Cell (RBC) Count 3.35 mill/uL (4.70-6.10); White Blood Cell (WBC) Count 21.8 thou/uL (4.8-10.8)
[2020-01-06 08:52] LABS: Anion Gap 15 mmol/L (10-20); BUN (Urea Nitrogen) 39 mg/dL (8.4-25.7); Calc. Creatinine Clearance 56 mL/min (70-130); Calcium 7.4 mg/dL (7.8-10.44); Carbon Dioxide 22 mmol/L (22-29); Chloride 96 mmol/L (98-107); Estimated GFR-MDRD 31; Glucose 174 mg/dL (70-105); Potassium 5.4 mmol/L (3.5-5.1); Sodium 128 mmol/L (136-145)
[2020-01-06] MEDS: Gabapentin 100 MG CAP PO SCH ×2 (09:09→20:34)
[2020-01-06] MEDS: Doxycycline 100 MG CAP PO SCH ×2 (09:09→20:35)
[2020-01-06] MEDS: HYDROcodone/Acetaminophen 5/325 mg Tablet PO PRN ×2 (09:11→14:20)
[2020-01-06] MEDS: Saccharomyces boulardii 250 MG CAP PO SCH (09:11)
[2020-01-06] MEDS: Famotidine 20 MG TAB PO SCH ×2 (09:11→20:35)
[2020-01-06] MEDS: Amlodipine 5 MG TAB PO SCH (09:12)
[2020-01-06] MEDS: Ondansetron ODT 8 MG TAB SL SCH ×4 (09:15→20:35)
[2020-01-06 10:04] LABS: Band 2 % (5-11); Lymphocytes 13 % (21-51); MDiff Complete? YES; Metamyelocyte 4 % (0-0); Monocytes 5 % (0-10); Neutrophil 76 % (42-75); Platelet Morphology Comment Appears Increased; Polychromasia SLIGHT = 2-3 cells (100X) (0-2/hpf)
--- NOTE | 2020-01-06 14:17 | PRG ---
DATE OF SERVICE: 01/06/2020 SUBJECTIVE: Mr. Hemphill is doing well. He still has a chest tube to suction. He is not having any abdominal complaints. His hemodynamics have been stable. Surprisingly, his lung tissue had black pigment grossly. He has no history of smoking. He did grow up in a household full smoke, but only smoked for a year. OBJECTIVE: VITAL SIGNS: He is afebrile, heart rate 77, respiratory rate is 18, oximetry is 95% on 1 L. LUNGS: Clear. HEART: Regular rhythm. ABDOMEN: Soft. EXTREMITIES: Without asymmetry. I talked to the pathologist. There is nothing on pathology at least at this time is suggestive of malignancy. Some giant cells are seen. Areas of organizing pneumonia are seen. The pathology will be going out to lung pathology presumably at [facility] or one of the outside referral centers. The only lab abnormalities are an elevated sedimentation rate of 127 and thrombocytosis which I am sure is reactive. His history suggestive of something semi-acute since he only had symptoms for 2 weeks prior to admission. He has had 2 negative COVID screens. His ANCA panel is negative. His hypersensitivity pneumonitis panel was negative. He had a mycoplasma IgG titer that was high, but his IgM titer was very low. His Legionella antigen was negative. His HIV was negative. His histoplasma urinary antigen was negative. His fungal antibody panel was negative. His QuantiFERON was negative. I still do not see my lupus panel, but I seriously doubt this is a lupus pneumonitis or pneumonitis with scleroderma. This symptoms do not fit with that. We will await pathology results and he will continue to receive antimicrobial therapy and empiric steroids. He could be switched to p.o. prednisone. I would switch him to p.o. antibiotics as well. Job ID: [id number]
[2020-01-06 15:15] LABS: ANA Symphony (Qualitative) Negative (Negative); ANA Symphony (Quantitative) 0.3 Ratio (< 0.7 Negative); EliA Thy New Method **** NEW METHOD ****; EliA Vaculitis New Method **** NEW METHOD ****; Mitochondrial Ab 1.5 U/mL (<4 Negative); Thyroid Peroxidase IgG Ab Less than 4.0 IU/mL (<25 Normal); dsDNA IgG Antibody 1.1 IU/mL (<10 Negative)
[2020-01-07] MEDS: methylPREDNISolone Sod Succ 40 MG VIAL IVP SCH ×4 (01:18→18:36)
[2020-01-07] MEDS: Albuterol 200 PUFF (6.7GM INHALER) INH SCH ×6 (01:38→23:01)
[2020-01-07] MEDS: Mometasone 200 MCG/Formoterol 5 MCG 120 PUFF INHALER INH SCH ×2 (06:27→18:35)
[2020-01-07] MEDS: Bisacodyl 10 MG SUPP PR SCH ×3 (06:30→22:19)
[2020-01-07] MEDS: HYDROcodone/Acetaminophen 5/325 mg Tablet PO PRN ×2 (06:35→20:08)
--- NOTE | 2020-01-07 08:22 | RAD ---
SINGLE VIEW OF THE CHEST: COMPARISON: 01/06/2020. HISTORY: Status post right thoracotomy with previously seen pneumothorax. FINDINGS: A single view of the chest shows a normal-size cardiomediastinal silhouette. A right-sided chest tub e is seen. Increased interstitial lung markings are present. There is an area of airspace opacity i n the right lung base. The previously seen pneumothorax is not visualized on today's examination and may have resolved. Degenerative changes are seen in the spine. IMPRESSION: 1. Right lower lobe infiltrate. 2. Resolution of previously seen right-sided pneumothorax. POS: EAA
[2020-01-07] MEDS: Amlodipine 5 MG TAB PO SCH (08:44)
[2020-01-07] MEDS: Famotidine 20 MG TAB PO SCH ×2 (08:45→20:04)
[2020-01-07] MEDS: Gabapentin 100 MG CAP PO SCH ×2 (08:45→20:04)
[2020-01-07] MEDS: Saccharomyces boulardii 250 MG CAP PO SCH (08:45)
[2020-01-07] MEDS: Ondansetron ODT 8 MG TAB SL SCH ×4 (08:46→20:05)
[2020-01-07] MEDS: Doxycycline 100 MG CAP PO SCH ×2 (08:46→20:04)
[2020-01-07] MEDS: Guaifenesin DM 100-10/5 ML UDCUP PO PRN (08:53)
[2020-01-07 08:56] LABS: Hemoglobin 9.6 g/dL (14.0-18.0); Mean Corpuscular HGB CONC 33.2 g/dL (32.0-36.0); Mean Corpuscular Hemoglobin 31.9 pg (27.0-31.0); Mean Corpuscular Volume 96.1 fL (78.0-98.0); Mean Platelet Volume 6.9 fL (7.4-10.4); Platelet Count 505 thou/uL (130-400); RBC Distribution Width 12.3 % (11.5-14.5); Red Blood Cell (RBC) Count 2.99 mill/uL (4.70-6.10); White Blood Cell (WBC) Count 22.2 thou/uL (4.8-10.8)
[2020-01-07] MEDS ORDERED: Magnesium Citrate 300 ML BOT PO PRN (09:06)
[2020-01-07 09:14] LABS: Anion Gap 13 mmol/L (10-20); BUN (Urea Nitrogen) 32 mg/dL (8.4-25.7); Calc. Creatinine Clearance 89 mL/min (70-130); Calcium 7.7 mg/dL (7.8-10.44); Carbon Dioxide 22 mmol/L (22-29); Chloride 98 mmol/L (98-107); Estimated GFR-MDRD 54; Glucose 247 mg/dL (70-105); Potassium 5.3 mmol/L (3.5-5.1); Sodium 128 mmol/L (136-145)
[2020-01-07 09:32] LABS: Band 3 % (5-11); Lymphocytes 3 % (21-51); MDiff Complete? YES; Monocytes 9 % (0-10); Myelocyte 1 % (0-0); Neutrophil 84 % (42-75); Platelet Morphology Comment Appears Increased; Polychromasia SLIGHT = 2-3 cells (100X) (0-2/hpf)
[2020-01-07] MEDS: Milk Of Magnesia 30 ML UDCUP PO PRN (09:38)
--- NOTE | 2020-01-07 12:27 | PRG ---
DATE OF SERVICE: 01/07/2020 SUBJECTIVE: Zeyad Hemphill this morning, he is doing well. He is having some chest pain when chest tube is in. OBJECTIVE: VITAL SIGNS: Temperature 98, pulse 90, respirations 20, sats are 92%, 2 L, blood pressure 128/77. CHEST: No wheezing. No crackles. CARDIAC: Normal S1, S2. No masses. LABORATORY DATA: White count 20,000, platelet count 505. Sodium 128, creatinine 1.6. He had extensive workup for presumed vasculitis, so far negative. Open lung biopsy was performed, awaiting final path. ASSESSMENT AND PLAN: 1. Read as interstitial pneumonia with organizing pneumonia. No granulomas seen. 2. Respiratory failure organizing pneumonia, status prone lung biopsy. I would await for all cultures. 3. Continue antibiotics, supportive care. X-ray looks stable. When chest tube is discontinued, he could probably go home. Job ID: [id number]
--- NOTE | 2020-01-07 13:57 | PDOC.HOSPP ---
- Subjective Encounter Date: 01/06/20 Encounter Time: 16:00 Subjective: Mr. Hemphill was seen today in follow-up pneumonia ans respiratory failure. He notes improved pain control. He is still coughing off and on. - Objective Vital Signs & Weight: Vital Signs (12 hours) Temp Pulse Resp BP Pulse Ox 01/07/20 08:44 91 01/07/20 07:18 98.6 F 91 20 128/77 92 L 01/07/20 04:55 98.3 F 81 16 136/81 94 L Weight Admit Weight 270 lb Weight 270 lb 1.06 oz Most Recent Monitor Data Heart Rate from ECG 97 NIBP 170/99 NIBP BP-Mean 122 Respiration from ECG 23 SpO2 92 I&O: 01/06/20 01/07/20 01/08/20 06:59 06:59 06:59 Intake Total 2275 4410 Output Total 2400 4150 Balance -125 260 Result Diagrams: 01/07/20 08:20 01/07/20 08:20 Hospitalist ROS - Medication Medications: Active Medications Generic Name Dose Route Start Last Admin Trade Name Freq PRN Reason Stop Dose Admin Acetaminophen 650 mg 12/28/19 10:29 12/30/19 20:42 Acetaminophen 325 Mg Tab PO 650 mg Q4H PRN Administration Headache/Fever/Mild Pain (1-3) Hydrocodone Bitart/Acetaminophen 2 tab 01/05/20 10:57 01/07/20 06:35 Hydrocodone/Acetaminophen 5/325 Mg Tablet PO 2 tab Q4H PRN Administration Moderate Pain (4-6) Albuterol Sulfate 2 puff 12/31/19 14:30 01/07/20 11:01 Albuterol 200 Puff (6.7gm Inhaler) INH 2 puff [id number] KRISTY Administration Amlodipine Besylate 5 mg 12/31/19 09:00 01/07/20 08:44 Amlodipine 5 Mg Tab PO Not Given DAILY KRISTY Benzonatate 100 mg 12/29/19 02:41 12/30/19 11:09 Benzonatate 100 Mg Cap PO 100 mg TIDPRN PRN Administration Cough Bisacodyl 10 mg 12/31/19 14:00 01/07/20 06:30 Bisacodyl 10 Mg Supp NC Not Given Q8HR KRISTY Clonidine 0.1 mg 12/30/19 10:45 12/31/19 18:00 Clonidine 0.1 Mg Tab PO 0.1 mg Q4H PRN Administration SBP>170 & DBP>100 Doxycycline Hyclate 100 mg 01/03/20 21:00 01/07/20 08:46 Doxycycline 100 Mg Cap PO 01/10/20 21:01 100 mg BID KRISTY Administration Famotidine 20 mg 12/28/19 21:00 01/07/20 08:45 Famotidine 20 Mg Tab PO 20 mg BID KRISTY Administration Fentanyl 50 mcg 01/05/20 10:57 01/05/20 13:35 Fentanyl 100 Mcg/2 Ml Vial SLOW IVP 50 mcg Q2H PRN Administration Severe Pain (7-10) Gabapentin 100 mg 01/05/20 21:00 01/07/20 08:45 Gabapentin 100 Mg Cap PO 100 mg BID KRISTY Administration Guaifenesin/Dextromethorphan 15 ml 12/29/19 12:49 01/07/20 08:53 Guaifenesin Dm 100-10/5 Ml Udcup PO 15 ml Q4H PRN Administration Cough Hydralazine HCl 20 mg 12/31/19 14:46 12/31/19 14:57 Hydralazine 20 Mg/Ml Vial SLOW IVP 20 mg Q4H PRN Administration SBP Greater Than 170 Trimethoprim/Sulfamethoxazole 500 mls @ 250 mls/hr 01/06/20 12:00 01/07/20 06:26 240 mg/ Dextrose/Water IVPB 500 mls 0600,1200,1800,2359 KRISTY Administration Ketorolac Tromethamine 30 mg 01/05/20 16:00 01/06/20 20:36 Ketorolac Tromethamine 30 Mg/Ml Vial IVP 01/10/20 16:01 30 mg Q6H PRN Administration Pain Magnesium Hydroxide 30 ml 01/07/20 09:06 01/07/20 09:38 Milk Of Magnesia 30 Ml Udcup PO 30 ml DAILYPRN PRN Administration Constipation Melatonin 3 mg 01/02/20 01:32 01/04/20 03:00 Melatonin 3 Mg Tab PO 3 mg HSPRN PRN Administration Insomnia Methylprednisolone Sodium Succinate 40 mg 01/01/20 01:00 01/07/20 06:26 Methylprednisolone Sod Succ 40 Mg Vial IVP 40 mg 0100,0700,1300,1900 KRISTY Administration Mometasone Furoate/Formoterol Fumar 2 puff 01/02/20 18:30 01/07/20 06:27 Mometasone 200 Mcg/Formoterol 5 Mcg 120 Puff Inhaler INH 2 puff BID-RT KRISTY Administration Ondansetron HCl 8 mg 12/31/19 17:00 01/07/20 08:46 Ondansetron Odt 8 Mg Tab SL 8 mg QID KRISTY Administration Saccharomyces Boulardii 250 mg 01/02/20 09:00 01/07/20 08:45 Saccharomyces Boulardii 250 Mg Cap PO 250 mg DAILY KRISTY Administration Sodium Chloride 10 ml 12/30/19 09:00 01/07/20 08:59 Flush - Normal Saline 10 Ml Syringe IVF Not Given Q12HR KRISTY Sodium Chloride 10 ml 12/30/19 06:15 01/05/20 13:36 Flush - Normal Saline 10 Ml Syringe IVF 10 ml PRN PRN Administration Saline Flush - Exam Eye: PERRL, anicteric sclera Heart: RRR, no murmur, no gallops, no rubs, normal peripheral pulses Respiratory: CTAB (+ decreased breath sounds in the left base, and fine rales) Gastrointestinal: soft, non-tender, non-distended, normal bowel sounds, no palpable masses Hosp A/P (1) Acute respiratory failure with hypoxia Code(s): J96.01 - ACUTE RESPIRATORY FAILURE WITH HYPOXIA Status: Acute (2) Atypical pneumonia Code(s): J18.9 - PNEUMONIA, UNSPECIFIED ORGANISM Status: Acute (3) Elevated liver enzymes Code(s): R74.8 - ABNORMAL LEVELS OF OTHER SERUM ENZYMES Status: Acute (4) Hypertension Code(s): I10 - ESSENTIAL (PRIMARY) HYPERTENSION Status: Chronic - Plan * Multi-focal pneumonia- possible vascultis- patient is s/p open lung biopsy * Awaiting pathology * Improved symptom management * HTN- blood pressure is stable
--- NOTE | 2020-01-07 14:01 | PDOC.HOSPP ---
- Subjective Encounter Date: 01/07/20 Encounter Time: 13:59 Subjective: Mr. Hemphill was seen today in follow-up of atypical pneumonia. He says the pain has improved. No new complaints. - Objective Vital Signs & Weight: Vital Signs (12 hours) Temp Pulse Resp BP Pulse Ox 01/07/20 08:44 91 01/07/20 07:18 98.6 F 91 20 128/77 92 L 01/07/20 04:55 98.3 F 81 16 136/81 94 L Weight Admit Weight 270 lb Weight 270 lb 1.06 oz Most Recent Monitor Data Heart Rate from ECG 97 NIBP 170/99 NIBP BP-Mean 122 Respiration from ECG 23 SpO2 92 I&O: 01/06/20 01/07/20 01/08/20 06:59 06:59 06:59 Intake Total 2275 4410 Output Total 2400 4150 Balance -125 260 Result Diagrams: 01/07/20 08:20 01/07/20 08:20 Hospitalist ROS - Medication Medications: Active Medications Generic Name Dose Route Start Last Admin Trade Name Freq PRN Reason Stop Dose Admin Acetaminophen 650 mg 12/28/19 10:29 12/30/19 20:42 Acetaminophen 325 Mg Tab PO 650 mg Q4H PRN Administration Headache/Fever/Mild Pain (1-3) Hydrocodone Bitart/Acetaminophen 2 tab 01/05/20 10:57 01/07/20 06:35 Hydrocodone/Acetaminophen 5/325 Mg Tablet PO 2 tab Q4H PRN Administration Moderate Pain (4-6) Albuterol Sulfate 2 puff 12/31/19 14:30 01/07/20 11:01 Albuterol 200 Puff (6.7gm Inhaler) INH 2 puff [id number] KRISTY Administration Amlodipine Besylate 5 mg 12/31/19 09:00 01/07/20 08:44 Amlodipine 5 Mg Tab PO Not Given DAILY KRISTY Benzonatate 100 mg 12/29/19 02:41 12/30/19 11:09 Benzonatate 100 Mg Cap PO 100 mg TIDPRN PRN Administration Cough Bisacodyl 10 mg 12/31/19 14:00 01/07/20 06:30 Bisacodyl 10 Mg Supp ID Not Given Q8HR KRISTY Clonidine 0.1 mg 12/30/19 10:45 12/31/19 18:00 Clonidine 0.1 Mg Tab PO 0.1 mg Q4H PRN Administration SBP>170 & DBP>100 Doxycycline Hyclate 100 mg 01/03/20 21:00 01/07/20 08:46 Doxycycline 100 Mg Cap PO 01/10/20 21:01 100 mg BID KRISTY Administration Famotidine 20 mg 12/28/19 21:00 01/07/20 08:45 Famotidine 20 Mg Tab PO 20 mg BID KRISTY Administration Fentanyl 50 mcg 01/05/20 10:57 01/05/20 13:35 Fentanyl 100 Mcg/2 Ml Vial SLOW IVP 50 mcg Q2H PRN Administration Severe Pain (7-10) Gabapentin 100 mg 01/05/20 21:00 01/07/20 08:45 Gabapentin 100 Mg Cap PO 100 mg BID KRISTY Administration Guaifenesin/Dextromethorphan 15 ml 12/29/19 12:49 01/07/20 08:53 Guaifenesin Dm 100-10/5 Ml Udcup PO 15 ml Q4H PRN Administration Cough Hydralazine HCl 20 mg 12/31/19 14:46 12/31/19 14:57 Hydralazine 20 Mg/Ml Vial SLOW IVP 20 mg Q4H PRN Administration SBP Greater Than 170 Trimethoprim/Sulfamethoxazole 500 mls @ 250 mls/hr 01/06/20 12:00 01/07/20 06:26 240 mg/ Dextrose/Water IVPB 500 mls 0600,1200,1800,2359 KRISTY Administration Ketorolac Tromethamine 30 mg 01/05/20 16:00 01/06/20 20:36 Ketorolac Tromethamine 30 Mg/Ml Vial IVP 01/10/20 16:01 30 mg Q6H PRN Administration Pain Magnesium Hydroxide 30 ml 01/07/20 09:06 01/07/20 09:38 Milk Of Magnesia 30 Ml Udcup PO 30 ml DAILYPRN PRN Administration Constipation Melatonin 3 mg 01/02/20 01:32 01/04/20 03:00 Melatonin 3 Mg Tab PO 3 mg HSPRN PRN Administration Insomnia Methylprednisolone Sodium Succinate 40 mg 01/01/20 01:00 01/07/20 06:26 Methylprednisolone Sod Succ 40 Mg Vial IVP 40 mg 0100,0700,1300,1900 KRISTY Administration Mometasone Furoate/Formoterol Fumar 2 puff 01/02/20 18:30 01/07/20 06:27 Mometasone 200 Mcg/Formoterol 5 Mcg 120 Puff Inhaler INH 2 puff BID-RT KRISTY Administration Ondansetron HCl 8 mg 12/31/19 17:00 01/07/20 08:46 Ondansetron Odt 8 Mg Tab SL 8 mg QID KRISTY Administration Saccharomyces Boulardii 250 mg 01/02/20 09:00 01/07/20 08:45 Saccharomyces Boulardii 250 Mg Cap PO 250 mg DAILY KRISTY Administration Sodium Chloride 10 ml 12/30/19 09:00 01/07/20 08:59 Flush - Normal Saline 10 Ml Syringe IVF Not Given Q12HR KRISTY Sodium Chloride 10 ml 12/30/19 06:15 01/05/20 13:36 Flush - Normal Saline 10 Ml Syringe IVF 10 ml PRN PRN Administration Saline Flush - Exam Eye: PERRL, anicteric sclera Heart: RRR, no murmur, no gallops, normal peripheral pulses Respiratory: no wheezes, no ronchi, rales (faint rales at the base) Gastrointestinal: soft, non-tender, non-distended, normal bowel sounds, no palpable masses, no hepatomegaly Extremities: no cyanosis, no edema Hosp A/P (1) Acute respiratory failure with hypoxia Code(s): J96.01 - ACUTE RESPIRATORY FAILURE WITH HYPOXIA Status: Acute (2) Atypical pneumonia Code(s): J18.9 - PNEUMONIA, UNSPECIFIED ORGANISM Status: Acute (3) Elevated liver enzymes Code(s): R74.8 - ABNORMAL LEVELS OF OTHER SERUM ENZYMES Status: Acute (4) Hypertension Code(s): I10 - ESSENTIAL (PRIMARY) HYPERTENSION Status: Chronic - Plan * Multi-focal pneumonia- possible vascultis- patient is s/p open lung biopsy- chest tube in place * Continue empiric antibiotics, and continue Steroids * Pathology results are still pending * Improved symptom management * HTN- blood pressure is stable
--- NOTE | 2020-01-07 15:06 | PRG ---
DATE OF SERVICE: 01/07/2020 SUBJECTIVE: Mr. Hemphill had a thoracoscopic lung biopsy. Pathology is discussed below. He was having some pain, which has gotten better. He is not dyspneic right now. No more hemoptysis. No abdominal pain or diarrhea. No genitourinary symptoms. OBJECTIVE: VITAL SIGNS: His temperature has been normal as expected on steroids. O2 saturations are a little bit lower than previously, but not much. He is on 2 L nasal cannula. BP normal, heart rate 91, respiratory rate 16 to 20. GENERAL: Awake, alert, and oriented. LUNGS: With diminished breath sounds in the right lower base. HEART: S1 and S2, regular rate. ABDOMEN: Soft, not distended or tender. No ascites. No bladder distention. LABORATORY DATA: White cell count 21.8, hemoglobin 10.6, platelets 595, 76% neutrophils. Creatinine 1.62. ANCA, SATYA, anti-mitochondrial, and thyroid peroxidase complement all within normal limits or actually negative. The [facility] test was not yet posted by the laboratory, but I discussed the results with the [facility] patient account representative yesterday and the only positive finding above threshold was low numbers of Acinetobacter species. I do not think this has a bearing on the underlying diagnosis. The pathology actually has revealed interstitial pneumonia with focal organizing pneumonia, so consultation with Pulmonary pathologist was submitted. We do not have an addendum yet, but no opportunistic or fungal/acid- fast organisms were seen in the stains performed in the lung tissue. ASSESSMENT AND DISCUSSION: Hypertension and diffuse pneumonitis with evidence of chronicity on biopsy and organizing features. The final pathology diagnosis is pending following consultation with pulmonary pathologist. The [facility] test I do not believe is meaningful to the final diagnosis. 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 An alternate possibility, in view of the pre-test likelihood of SARS-CoV2 infection, would be the aftermath of a previous Covid19 event with eventual loss of PCR positivity and decrease in Ab titers below threshold. Job ID: [id number] [facility]
[2020-01-07 16:12] LABS: Ref Lab Test Ordered KARIUS; Reference Lab Name KARIUS
[2020-01-08] MEDS: methylPREDNISolone Sod Succ 40 MG VIAL IVP SCH ×4 (00:21→18:00)
[2020-01-08] MEDS: Melatonin 3 MG TAB PO PRN (00:29)
[2020-01-08] MEDS: HYDROcodone/Acetaminophen 5/325 mg Tablet PO PRN ×5 (00:29→20:11)
[2020-01-08] MEDS: Albuterol 200 PUFF (6.7GM INHALER) INH SCH ×6 (02:49→22:43)
[2020-01-08] MEDS: Bisacodyl 10 MG SUPP PR SCH ×3 (05:27→22:07)
[2020-01-08 06:33] LABS: Anion Gap 12 mmol/L (10-20); BUN (Urea Nitrogen) 22 mg/dL (8.4-25.7); Calc. Creatinine Clearance 121 mL/min (70-130); Calcium 7.9 mg/dL (7.8-10.44); Carbon Dioxide 23 mmol/L (22-29); Chloride 100 mmol/L (98-107); Estimated GFR-MDRD 76; Glucose 214 mg/dL (70-105); Potassium 5.4 mmol/L (3.5-5.1); Sodium 130 mmol/L (136-145)
[2020-01-08] MEDS: Mometasone 200 MCG/Formoterol 5 MCG 120 PUFF INHALER INH SCH ×2 (06:36→17:58)
[2020-01-08 06:44] LABS: Hemoglobin 8.9 g/dL (14.0-18.0); Mean Corpuscular HGB CONC 33.7 g/dL (32.0-36.0); Mean Corpuscular Hemoglobin 31.8 pg (27.0-31.0); Mean Corpuscular Volume 94.4 fL (78.0-98.0); Mean Platelet Volume 6.8 fL (7.4-10.4); Platelet Count 460 thou/uL (130-400); RBC Distribution Width 12.6 % (11.5-14.5); Red Blood Cell (RBC) Count 2.79 mill/uL (4.70-6.10); White Blood Cell (WBC) Count 22.8 thou/uL (4.8-10.8)
[2020-01-08 06:45] LABS: Band 2 % (5-11); Hypochromia SLIGHT = 6-15 cells (100X) (0-5/hpf); Lymphocytes 14 % (21-51); MDiff Complete? YES; Metamyelocyte 1 % (0-0); Monocytes 14 % (0-10); Neutrophil 69 % (42-75); Platelet Morphology Comment Appears Increased
--- NOTE | 2020-01-08 08:19 | RAD ---
EXAM: Single view of the chest HISTORY: Status post thoracotomy COMPARISON: 01/07/2020 FINDINGS: Single view of the chest shows an enlarged but stable cardiomediastinal silhouette. There is a right-sided chest tube. Opacity is seen in the right lung base which has slightly improved compared to the prior examination. No obvious pneumothorax is seen. No acute osseous abnormality. IMPRESSION: Slight improvement in right lower lobe opacity.
[2020-01-08] MEDS: Ondansetron ODT 8 MG TAB SL SCH ×4 (08:50→20:13)
[2020-01-08] MEDS: Doxycycline 100 MG CAP PO SCH ×2 (08:51→20:13)
[2020-01-08] MEDS: Gabapentin 100 MG CAP PO SCH ×2 (08:51→20:12)
[2020-01-08] MEDS: Saccharomyces boulardii 250 MG CAP PO SCH (08:51)
[2020-01-08] MEDS: Famotidine 20 MG TAB PO SCH ×2 (08:51→20:13)
[2020-01-08] MEDS: Amlodipine 5 MG TAB PO SCH (08:52)
[2020-01-08 10:13] LABS: Fungus Stain Final report (.)
[2020-01-08 10:13] LABS: Fungus Stain Final report (.)
--- NOTE | 2020-01-08 14:47 | PDOC.HOSPP ---
- Subjective Encounter Date: 01/08/20 Encounter Time: 14:46 Subjective: Mr. Hemphill was seen today in follow-up of atypical pneumonia. He has had the chest tube removed, and he feels much better. He says the cough has improved. - Objective Vital Signs & Weight: Vital Signs (12 hours) Temp Pulse Resp BP BP Pulse Ox 01/08/20 10:00 98 F 84 19 121/57 L 92 L 01/08/20 08:45 92 L 01/08/20 07:17 97.9 F 84 20 121/69 95 01/08/20 05:37 95 01/08/20 04:00 98.1 F 78 18 128/73 95 Weight Admit Weight 270 lb Weight 270 lb 1.06 oz Most Recent Monitor Data Heart Rate from ECG 97 NIBP 170/99 NIBP BP-Mean 122 Respiration from ECG 23 SpO2 92 I&O: 01/07/20 01/08/20 01/09/20 06:59 06:59 06:59 Intake Total 4410 3530 Output Total 4150 3090 1000 Balance 260 440 -1000 Result Diagrams: 01/08/20 05:44 01/08/20 05:44 Hospitalist ROS - Medication Medications: Active Medications Generic Name Dose Route Start Last Admin Trade Name Freq PRN Reason Stop Dose Admin Acetaminophen 650 mg 12/28/19 10:29 12/30/19 20:42 Acetaminophen 325 Mg Tab PO 650 mg Q4H PRN Administration Headache/Fever/Mild Pain (1-3) Hydrocodone Bitart/Acetaminophen 2 tab 01/05/20 10:57 01/08/20 11:24 Hydrocodone/Acetaminophen 5/325 Mg Tablet PO 2 tab Q4H PRN Administration Moderate Pain (4-6) Albuterol Sulfate 2 puff 12/31/19 14:30 01/08/20 11:23 Albuterol 200 Puff (6.7gm Inhaler) INH 2 puff [id number] KRISTY Administration Amlodipine Besylate 5 mg 12/31/19 09:00 01/08/20 08:52 Amlodipine 5 Mg Tab PO 5 mg DAILY KRISTY Administration Benzonatate 100 mg 12/29/19 02:41 12/30/19 11:09 Benzonatate 100 Mg Cap PO 100 mg TIDPRN PRN Administration Cough Bisacodyl 10 mg 12/31/19 14:00 01/08/20 13:36 Bisacodyl 10 Mg Supp MT Not Given Q8HR KRISTY Clonidine 0.1 mg 12/30/19 10:45 12/31/19 18:00 Clonidine 0.1 Mg Tab PO 0.1 mg Q4H PRN Administration SBP>170 & DBP>100 Doxycycline Hyclate 100 mg 01/03/20 21:00 01/08/20 08:51 Doxycycline 100 Mg Cap PO 01/10/20 21:01 100 mg BID KRISTY Administration Famotidine 20 mg 12/28/19 21:00 01/08/20 08:51 Famotidine 20 Mg Tab PO 20 mg BID KRISTY Administration Fentanyl 50 mcg 01/05/20 10:57 01/05/20 13:35 Fentanyl 100 Mcg/2 Ml Vial SLOW IVP 50 mcg Q2H PRN Administration Severe Pain (7-10) Gabapentin 100 mg 01/05/20 21:00 01/08/20 08:51 Gabapentin 100 Mg Cap PO 100 mg BID KRISTY Administration Guaifenesin/Dextromethorphan 15 ml 12/29/19 12:49 01/07/20 08:53 Guaifenesin Dm 100-10/5 Ml Udcup PO 15 ml Q4H PRN Administration Cough Hydralazine HCl 20 mg 12/31/19 14:46 12/31/19 14:57 Hydralazine 20 Mg/Ml Vial SLOW IVP 20 mg Q4H PRN Administration SBP Greater Than 170 Ketorolac Tromethamine 30 mg 01/05/20 16:00 01/06/20 20:36 Ketorolac Tromethamine 30 Mg/Ml Vial IVP 01/10/20 16:01 30 mg Q6H PRN Administration Pain Magnesium Hydroxide 30 ml 01/07/20 09:06 01/07/20 09:38 Milk Of Magnesia 30 Ml Udcup PO 30 ml DAILYPRN PRN Administration Constipation Melatonin 3 mg 01/02/20 01:32 01/08/20 00:29 Melatonin 3 Mg Tab PO 3 mg HSPRN PRN Administration Insomnia Methylprednisolone Sodium Succinate 40 mg 01/01/20 01:00 01/08/20 12:12 Methylprednisolone Sod Succ 40 Mg Vial IVP 40 mg 0100,0700,1300,1900 KRISTY Administration Mometasone Furoate/Formoterol Fumar 2 puff 01/02/20 18:30 01/08/20 06:36 Mometasone 200 Mcg/Formoterol 5 Mcg 120 Puff Inhaler INH 2 puff BID-RT KRISTY Administration Ondansetron HCl 8 mg 12/31/19 17:00 01/08/20 12:17 Ondansetron Odt 8 Mg Tab SL 8 mg QID KRISTY Administration Saccharomyces Boulardii 250 mg 01/02/20 09:00 01/08/20 08:51 Saccharomyces Boulardii 250 Mg Cap PO 250 mg DAILY KRISTY Administration Sodium Chloride 10 ml 12/30/19 09:00 01/08/20 08:53 Flush - Normal Saline 10 Ml Syringe IVF 10 ml Q12HR KRISTY Administration Sodium Chloride 10 ml 12/30/19 06:15 01/05/20 13:36 Flush - Normal Saline 10 Ml Syringe IVF 10 ml PRN PRN Administration Saline Flush - Exam Eye: PERRL, anicteric sclera ENT: normocephalic atraumatic Heart: RRR, no murmur, no gallops, no rubs, normal peripheral pulses Respiratory: rales, rhonchi Gastrointestinal: soft, non-tender, non-distended, normal bowel sounds, no palpable masses, no hepatomegaly Extremities: no cyanosis, no clubbing, no edema Musculoskeletal: normal tone, normal strength, no muscle wasting Psychiatric: normal affect, normal behavior, A&O x 3 Hosp A/P (1) Acute respiratory failure with hypoxia Code(s): J96.01 - ACUTE RESPIRATORY FAILURE WITH HYPOXIA Status: Acute (2) Atypical pneumonia Code(s): J18.9 - PNEUMONIA, UNSPECIFIED ORGANISM Status: Acute (3) Elevated liver enzymes Code(s): R74.8 - ABNORMAL LEVELS OF OTHER SERUM ENZYMES Status: Acute (4) Hypertension Code(s): I10 - ESSENTIAL (PRIMARY) HYPERTENSION Status: Chronic - Plan * Multi-focal pneumonia- possible vascultis- patient is s/p open lung biopsy- chest tube was removed today * Pathology results noted, and ID and Pulmonary input appreciated * Continue empiric antibiotics, and continue Steroids * Disposition as per Pulmonary * HTN- blood pressure is stable
--- NOTE | 2020-01-08 14:55 | PRG ---
DATE OF SERVICE: 01/08/2020 SUBJECTIVE: The patient is doing reasonably well. He got his chest tube out today. PHYSICAL EXAMINATION: VITAL SIGNS: His O2 sats 92% on 1 L, blood pressure 121/57, pulse 84, temperature 98.0. HEENT: Unremarkable. NECK: No adenopathy or JVD. LUNGS: Clear. CARDIAC: S1, S2. Regular. ABDOMEN: Soft. EXTREMITIES: No edema. LABORATORY DATA: The patient's cultures show no growth to date. Lung biopsy showed organizing pneumonia. ASSESSMENT: Organizing pneumonia. PLAN: I will go ahead and stop the Bactrim since that overlaps with doxycycline for coverage. The patient should be able to go home in the next couple of days. Job ID: [id number]
[2020-01-09] MEDS: HYDROcodone/Acetaminophen 5/325 mg Tablet PO PRN ×3 (00:17→13:30)
[2020-01-09] MEDS: methylPREDNISolone Sod Succ 40 MG VIAL IVP SCH ×3 (00:17→13:31)
[2020-01-09] MEDS: Albuterol 200 PUFF (6.7GM INHALER) INH SCH ×6 (03:24→22:31)
[2020-01-09] MEDS: Bisacodyl 10 MG SUPP PR SCH ×3 (06:13→21:03)
[2020-01-09] MEDS: Mometasone 200 MCG/Formoterol 5 MCG 120 PUFF INHALER INH SCH ×2 (06:13→19:16)
[2020-01-09] MEDS: Ketorolac Tromethamine 30 MG/ML VIAL IVP PRN (08:39)
[2020-01-09] MEDS: Doxycycline 100 MG CAP PO SCH ×2 (08:40→20:11)
[2020-01-09] MEDS: Gabapentin 100 MG CAP PO SCH ×2 (08:40→20:12)
[2020-01-09] MEDS: Famotidine 20 MG TAB PO SCH ×2 (08:41→20:12)
[2020-01-09] MEDS: Saccharomyces boulardii 250 MG CAP PO SCH (08:41)
[2020-01-09] MEDS: Amlodipine 5 MG TAB PO SCH (08:41)
[2020-01-09] MEDS: Ondansetron ODT 8 MG TAB SL SCH ×4 (08:41→20:12)
--- NOTE | 2020-01-09 09:01 | RAD ---
Portable frontal chest radiograph: 01/09/2020 COMPARISON: 01/08/2020 HISTORY: Evaluate chest following thoracotomy FINDINGS: There has been interval removal of a right-sided chest tube. Heart and mediastinal contours are stable. Left lung appears grossly unremarkable. There is partial opacification of the inferior half of the right hemithorax on the basis of nonspecif ic pleural and parenchymal opacity within the right lung base involving the right middle and right lower lobe regions. Reticulonodular densities throughout both lungs seen on the 12/28/2019 examinatio n have markedly improved. IMPRESSION: Nonspecific pleural and parenchymal opacity within the right lung base. Continued follow- up advised.
[2020-01-09] MEDS ORDERED: Sodium Chloride 0.9% 1,000 ML IV SCH (10:15)
--- NOTE | 2020-01-09 13:15 | PDOC.HOSPP ---
- Subjective Encounter Date: 01/09/20 Encounter Time: 11:40 Subjective: Patient is still the setting especially with exertion. 94% saturation. White count consistently elevated around 22,000. - Objective Vital Signs & Weight: Vital Signs (12 hours) Temp Pulse Resp BP Pulse Ox 01/09/20 08:00 94 L 01/09/20 06:59 98.3 F 80 18 149/80 H 94 L 01/09/20 06:10 95 Weight Admit Weight 270 lb Weight 270 lb 1.06 oz Most Recent Monitor Data Heart Rate from ECG 97 NIBP 170/99 NIBP BP-Mean 122 Respiration from ECG 23 SpO2 92 I&O: 01/08/20 01/09/20 01/10/20 06:59 06:59 06:59 Intake Total 3530 4262 Output Total 3090 3925 Balance 440 337 Result Diagrams: 01/08/20 05:44 01/08/20 05:44 Hospitalist ROS - Medication Medications: Active Medications Generic Name Dose Route Start Last Admin Trade Name Freq PRN Reason Stop Dose Admin Acetaminophen 650 mg 12/28/19 10:29 12/30/19 20:42 Acetaminophen 325 Mg Tab PO 650 mg Q4H PRN Administration Headache/Fever/Mild Pain (1-3) Hydrocodone Bitart/Acetaminophen 2 tab 01/05/20 10:57 01/09/20 06:07 Hydrocodone/Acetaminophen 5/325 Mg Tablet PO 2 tab Q4H PRN Administration Moderate Pain (4-6) Albuterol Sulfate 2 puff 12/31/19 14:30 01/09/20 11:23 Albuterol 200 Puff (6.7gm Inhaler) INH 2 puff [id number] KRISTY Administration Amlodipine Besylate 5 mg 12/31/19 09:00 01/09/20 08:41 Amlodipine 5 Mg Tab PO 5 mg DAILY KRISTY Administration Benzonatate 100 mg 12/29/19 02:41 12/30/19 11:09 Benzonatate 100 Mg Cap PO 100 mg TIDPRN PRN Administration Cough Bisacodyl 10 mg 12/31/19 14:00 01/09/20 06:13 Bisacodyl 10 Mg Supp OH Not Given Q8HR KRISTY Clonidine 0.1 mg 12/30/19 10:45 12/31/19 18:00 Clonidine 0.1 Mg Tab PO 0.1 mg Q4H PRN Administration SBP>170 & DBP>100 Doxycycline Hyclate 100 mg 01/03/20 21:00 01/09/20 08:40 Doxycycline 100 Mg Cap PO 01/10/20 21:01 100 mg BID KRISTY Administration Famotidine 20 mg 12/28/19 21:00 01/09/20 08:41 Famotidine 20 Mg Tab PO 20 mg BID KRISTY Administration Fentanyl 50 mcg 01/05/20 10:57 01/05/20 13:35 Fentanyl 100 Mcg/2 Ml Vial SLOW IVP 50 mcg Q2H PRN Administration Severe Pain (7-10) Gabapentin 100 mg 01/05/20 21:00 01/09/20 08:40 Gabapentin 100 Mg Cap PO 100 mg BID KRISTY Administration Guaifenesin/Dextromethorphan 15 ml 12/29/19 12:49 01/07/20 08:53 Guaifenesin Dm 100-10/5 Ml Udcup PO 15 ml Q4H PRN Administration Cough Hydralazine HCl 20 mg 12/31/19 14:46 12/31/19 14:57 Hydralazine 20 Mg/Ml Vial SLOW IVP 20 mg Q4H PRN Administration SBP Greater Than 170 Sodium Chloride 1,000 mls @ 75 mls/hr 01/09/20 10:15 01/09/20 11:10 Normal Saline 0.9% IV 01/09/20 23:34 1,000 mls .[id number] KRISTY Administration Ketorolac Tromethamine 30 mg 01/05/20 16:00 01/09/20 08:39 Ketorolac Tromethamine 30 Mg/Ml Vial IVP 01/10/20 16:01 30 mg Q6H PRN Administration Pain Magnesium Hydroxide 30 ml 01/07/20 09:06 01/07/20 09:38 Milk Of Magnesia 30 Ml Udcup PO 30 ml DAILYPRN PRN Administration Constipation Melatonin 3 mg 01/02/20 01:32 01/08/20 00:29 Melatonin 3 Mg Tab PO 3 mg HSPRN PRN Administration Insomnia Methylprednisolone Sodium Succinate 40 mg 01/01/20 01:00 01/09/20 06:08 Methylprednisolone Sod Succ 40 Mg Vial IVP 40 mg 0100,0700,1300,1900 KRISTY Administration Mometasone Furoate/Formoterol Fumar 2 puff 01/02/20 18:30 01/09/20 06:13 Mometasone 200 Mcg/Formoterol 5 Mcg 120 Puff Inhaler INH 2 puff BID-RT KRISTY Administration Ondansetron HCl 8 mg 12/31/19 17:00 01/09/20 08:41 Ondansetron Odt 8 Mg Tab SL 8 mg QID KRISTY Administration Saccharomyces Boulardii 250 mg 01/02/20 09:00 01/09/20 08:41 Saccharomyces Boulardii 250 Mg Cap PO 250 mg DAILY KRISTY Administration Sodium Chloride 10 ml 12/30/19 09:00 01/09/20 08:42 Flush - Normal Saline 10 Ml Syringe IVF 10 ml Q12HR KRISTY Administration Sodium Chloride 10 ml 12/30/19 06:15 01/05/20 13:36 Flush - Normal Saline 10 Ml Syringe IVF 10 ml PRN PRN Administration Saline Flush - Exam General Appearance: NAD, awake alert Eye: PERRL ENT: normocephalic atraumatic Neck: supple Respiratory: normal chest expansion Gastrointestinal: normal bowel sounds Neurological: no focal deficits Psychiatric: A&O x 3 Hosp A/P - Plan (1) Acute respiratory failure with hypoxia Code(s): J96.01 - ACUTE RESPIRATORY FAILURE WITH HYPOXIA Status: Acute (2) Atypical pneumonia Code(s): J18.9 - PNEUMONIA, UNSPECIFIED ORGANISM Status: Acute (3) Elevated liver enzymes Code(s): R74.8 - ABNORMAL LEVELS OF OTHER SERUM ENZYMES Status: Acute (4) Hypertension Code(s): I10 - ESSENTIAL (PRIMARY) HYPERTENSION Status: Chronic - Plan * Multi-focal pneumonia- possible vascultis- patient is s/p open lung biopsy- chest tube was removed today * Pathology results noted, and ID and Pulmonary input appreciated * Continue empiric antibiotics, and continue Steroids * Disposition as per Pulmonary * HTN- blood pressure is stable * * Atypical pneumonia--[we can call this as walking pneumonia, as patient has shortness of breath with ambulation -Mycoplasma pneumonia with IgG titer of 828 and IgM with the less than 770 - negative QuantiFERON -Fungal culture pending -He is on doxycycline and IV steroid 40 mL 3 times a day and a DuoNeb Hyponatremia Mild hyperkalemia -Low-dose Kayexalate and repeat level.
[2020-01-09 14:20] LABS: Potassium 5.1 mmol/L (3.5-5.1)
--- NOTE | 2020-01-09 14:39 | PRG ---
DATE OF SERVICE: 01/09/2020 SUBJECTIVE: Zeyad Hemphill says he is feeling better. He has been ambulating in the park. Oximetry is 94% on 0.5 L, 95 earlier on room air. His oxygen can be discontinued. OBJECTIVE: LUNGS: Clear. HEART: Regular rhythm. ABDOMEN: Soft. EXTREMITIES: Without edema. IMPRESSION: Organizing pneumonia and surgical lung biopsy. Second opinion via lung pathologist has been solicited. If he can ambulate well off oxygen today, he can go home in the morning, and I will follow him closely as an outpatient. He is still complaining of thoracoscopy site discomfort, which is not surprising. He has hydrocodone ordered for that. Job ID: [id number]
[2020-01-09] MEDS: Milk Of Magnesia 30 ML UDCUP PO PRN (20:31)
[2020-01-10] MEDS: HYDROcodone/Acetaminophen 5/325 mg Tablet PO PRN ×3 (02:16→12:07)
[2020-01-10] MEDS: Albuterol 200 PUFF (6.7GM INHALER) INH SCH ×3 (03:39→11:28)
[2020-01-10] MEDS: Bisacodyl 10 MG SUPP PR SCH ×2 (06:01→12:09)
[2020-01-10] MEDS: Mometasone 200 MCG/Formoterol 5 MCG 120 PUFF INHALER INH SCH (07:56)
[2020-01-10] MEDS ORDERED: predniSONE 20 MG TAB PO SCH (08:00)
[2020-01-10] MEDS: Doxycycline 100 MG CAP PO SCH (08:10)
[2020-01-10] MEDS: Saccharomyces boulardii 250 MG CAP PO SCH (08:10)
[2020-01-10] MEDS: Gabapentin 100 MG CAP PO SCH (08:10)
[2020-01-10] MEDS: Famotidine 20 MG TAB PO SCH (08:10)
[2020-01-10] MEDS: Amlodipine 5 MG TAB PO SCH (08:10)
[2020-01-10] MEDS: Ondansetron ODT 8 MG TAB SL SCH ×2 (08:10→12:07)
[2020-01-10 10:55] LABS: Mean Corpuscular HGB CONC 32.7 g/dL (32.0-36.0); Mean Corpuscular Hemoglobin 31.5 pg (27.0-31.0); Mean Corpuscular Volume 96.2 fL (78.0-98.0); RBC Distribution Width 13.1 % (11.5-14.5); Red Blood Cell (RBC) Count 2.85 mill/uL (4.70-6.10)
[2020-01-10 11:16] LABS: Anion Gap 10 mmol/L (10-20); BUN (Urea Nitrogen) 20 mg/dL (8.4-25.7); Calc. Creatinine Clearance 168 mL/min (70-130); Calcium 8.2 mg/dL (7.8-10.44); Carbon Dioxide 29 mmol/L (22-29); Chloride 98 mmol/L (98-107); Estimated GFR-MDRD Greater than 90; Glucose 149 mg/dL (70-105); Potassium 4.1 mmol/L (3.5-5.1); Sodium 133 mmol/L (136-145)
[2020-01-10 11:24] LABS: Band 1 % (5-11); Eosinophils 1 % (0-10); Hypersemented Neutrophil SLIGHT; Lymphocytes 8 % (21-51); MDiff Complete? YES; Mean Platelet Volume 6.8 fL (7.4-10.4); Monocytes 17 % (0-10); Neutrophil 72 % (42-75); Nucleated RBC 1 % (0); Platelet Count 438 thou/uL (130-400); Platelet Morphology Comment Appears Increased; Reactive Lymphocytes 1 % (0-10); White Blood Cell (WBC) Count 27.6 thou/uL (4.8-10.8)
[2020-01-10 12:08] VITALS: BP 122/72; TEMP 98.3
--- NOTE | 2020-01-10 12:16 | PDOC.DS.DS ---
Provider - Provider Date of Admission: 12/28/19 09:47 Admitting Provider: Jefe Guillory MD Primary Care Physician: [facility] Course - Hospital Course Hospital Course: (1) Acute respiratory failure with hypoxia Code(s): J96.01 - ACUTE RESPIRATORY FAILURE WITH HYPOXIA Status: Acute (2) Atypical pneumonia Code(s): J18.9 - PNEUMONIA, UNSPECIFIED ORGANISM Status: Acute (3) Elevated liver enzymes Code(s): R74.8 - ABNORMAL LEVELS OF OTHER SERUM ENZYMES Status: Acute (4) Hypertension Code(s): I10 - ESSENTIAL (PRIMARY) HYPERTENSION Status: Chronic - Plan * Multi-focal pneumonia- possible vascultis- patient is s/p open lung biopsy-and chest tube placement * * * Atypical pneumonia--[we can call this as walking pneumonia, as patient has shortness of breath with ambulation -Mycoplasma pneumonia with IgG titer of 828 and IgM with the less than 770 - negative QuantiFERON -Fungal culture pending Hyponatremia resolved Mild hyperkalemia-resolved Leukocytosis -Probably due to pneumonia as well as being on IV steroid. Clinically he looks better. He is stable to be discharged home and repeat CBC in 1 week when he visits his primary care clinic. He will also needs to follow-up with Dr. Ruby, solar thermal installer per their clinic appointment discharge time took over 30 minutes. Resuscitation Status: 12/28/19 10:29 Resuscitation Status Routine Resuscitation Status: FULL: Full Resuscitation - Labs Lab Results: 01/10/20 10:22 01/10/20 10:22 Abnormal Lab Results - Last 48 hrs 01/10/20 10:22: Sodium 133 L 01/10/20 10:22: WBC 27.6 H, RBC 2.85 L, Hgb 9.0 L, Hct 27.5 L, MCH 31.5 H, Plt Count 438 H, MPV 6.8 L, Band Neuts % (Manual) 1 L, Lymphocytes % (Manual) 8 L, Monocytes % (Manual) 17 H, Nucleated RBCs # (Man) 1 H, Plt Morphology Comment Appears Increased H Microbiology - Entire Visit 01/05/20 Unknown Lung - Right Lower Lobe Bacterial Culture - Final 01/05/20 Unknown Lung - Right Lower Lobe Anaerobic Culture - Final NO ANAEROBES ISOLATED IN 5 DAYS 01/05/20 08:14 Lung - Tissue Bacterial Culture - Final 01/05/20 08:14 Lung - Tissue Anaerobic Culture - Final NO ANAEROBES ISOLATED IN 5 DAYS 01/05/20 08:14 Lung - Tissue Direct Acid Fast Bacilli Smear - Final 01/05/20 08:14 Lung - Tissue Acid Fast Bacilli Smear - Final 01/05/20 08:14 Lung - Tissue Acid Fast Bacilli Culture - Preliminary Specimen has been received and culture in progress. No Growth to date. 01/05/20 Unknown Lung - Right Lower Lobe Direct Acid Fast Bacilli Smear - Final 01/05/20 Unknown Lung - Right Lower Lobe Acid Fast Bacilli Smear - Final 01/05/20 Unknown Lung - Right Lower Lobe Acid Fast Bacilli Culture - Preliminary Specimen has been received and culture in progress. No Growth to date. 12/29/19 00:49 Sputum Direct Acid Fast Bacilli Smear - Final 12/29/19 00:49 Sputum Acid Fast Bacilli Smear - Final 12/29/19 00:49 Sputum Acid Fast Bacilli Culture - Preliminary Specimen has been received and culture in progress. No Growth to date. - Physical Exam Vitals: Vital Signs (12 hours) Temp Pulse Resp BP BP BP Pulse Ox 01/10/20 12:02 98.3 F 102 H 20 122/72 96 01/10/20 08:16 98.7 F 93 20 123/74 93 L 01/10/20 08:10 92 123/74 01/10/20 08:00 93 L 01/10/20 06:00 98.3 F 92 18 124/75 95 Weight Admit Weight 270 lb Weight 270 lb 1.06 oz Most Recent Monitor Data Heart Rate from ECG 97 NIBP 170/99 NIBP BP-Mean 122 Respiration from ECG 23 SpO2 92 Physical Exam: The patient was seen and examined on the day of discharge. Cardiopulmonary exam quite unremarkable he does still have some soreness on the chest Plan - Discharge Medications Prescriptions: Mometasone/Formoterol 200/5 [Dulera 200 Mcg/5 Mcg Inhaler] 2 puff INH BID 30 Days #2 inh predniSONE 40 mg PO QAM-WM 7 Days #7 tab Home Medications: Medication Instructions Recorded Confirmed Type Mometasone/Formoterol 200/5 2 puff INH BID 30 Days #2 inh 01/10/20 Rx [Dulera 200 Mcg/5 Mcg Inhaler] predniSONE 40 mg PO QAM-WM 7 Days #7 tab 01/10/20 Rx Allergies: No Known Allergies Allergy (Unverified 12/28/19 11:04) - Discharge Instructions Discharge Instructions:: Follow-up with PCP in 1 week Al[place] up with Dr. Ruby solar thermal installer per their clinic appointment Repeat CBC, lab draw in 1 week, when you visit your primary care physician Activity:: Activity as Tolerated Nourishment:: Regular Diet - Follow up Plan Referrals: [facility] [Primary Care Provider] - Disposition: HOME Quality - Care Measures CORE MEASURES:: N/A
--- NOTE | 2020-01-10 13:47 | PRG ---
DATE OF SERVICE: 01/10/2020 SUBJECTIVE: Zeyad Hemphill says he feels great. He has been ambulating in the park without oxygen, oximetry is 93% to 96% on room air. OBJECTIVE: VITAL SIGNS: He is afebrile, heart rate is in the 90s, blood pressure 123/74. LUNGS: Clear. HEART: Regular rhythm. ABDOMEN: Soft. 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 He will continue on 40 of prednisone for 6 more days and then go to 20 mg a day. He will see me in 2 weeks with a chest x-ray. He can take [id number] Robitussin DM for cough. I have written him a work excuse for the next 2 weeks. At the time he follows up with me, hopefully we will have final pathology from the [facility]. Job ID: [id number]
--- NOTE | 2020-01-12 04:18 | PQF ---
CLINICAL DOCUMENTATION CLARIFICATION FORM: Dear : Alexa Caro Date / Time: 01/12/2020 6610 Please exercise your independent, professional judgment in responding to the clarification form. Clinical indicators are provided on the bottom of this form for your review Please check appropriate box(es): [ ] Sepsis due to Pneumonia [ ] Severe sepsis due to Pneumonia with Acute Respiratory Failure [ x ] Localized infection without sepsis [ ] Other diagnosis, please specify [ ] Unable to determine In addition, please specify: Present on Admission (POA): [ ] Yes [ ] No [ ] Unable to determine Physician Signature: Date/Time: For continuity of documentation, please document condition throughout progress notes and discharge summary. Thank You. To be completed by CDI/Coding staff for physician review: Present Clinical Indicators - Signs / Symptoms / Labs Results and Location in Medical Record [X] WBC 18.9, Neutrophils 68, Band 19, Lactic acid 1.1 Laboratory 12/27 [X] Lung Tissue: No growth to date Microbiology 01/04 [X] Bp 176/110, Pulse 100, Resp 31, Temp 98.3 Vital signs 12/27 [X] Chest Xray: showed reticulonodular pattern suggestive of an atypical pneumonia H&P p1 12/27 Dr Guillory [X] Started experiencing some cough, shortness of breath and fever H&P p1 12/27 Dr Guillory [X] Acute respiratory failure with hypoxia H&P p3 12/27 Dr Guillory [X] Atypical pneumonia H&P p3 12/27 Dr Guillory Present Risk Factors Results and Location in Medical Record [X] HTN H&P p1 12/27 Dr Guillory [X] Atypical pneumonia H&P p3 12/27 Dr Guillory [X] Former Smoker ED Notes 12/27 Present Treatments Results and Location in Medical Record [X] IV Vancomycin 2 gm APR 21 [X] IV Trimethorpim/Sulfamethoxaone 600 mg APR 21 [X] IV NS 1L APR 21 [X] IV Cefepime 1 gm APR 21 [X] IV Azithromycin 500 mg APR 21 [X] Respiratory consult Consult Dima Moody 12/28 [X] ID consult Consult Dr Perez 12/28 [X] Sepsis protocol Order Dr Guillory 12/27 [X] Lung Biopsy Procedure Dr Aragon 01/04 CDS/Coordinator Cardiopulmonary Services Signature: Libia Villa Phone #: [phone] Date/Time: 01/12/2020 0418 This is a permanent part of the Medical Record [facility]
== END 2020-01-10 14:07 | disposition home or self-care (01) | DRG 166 ==
LOC: ERS 07:28 → ERHOLD 09:47 → IMCU/EMU 10:10 → T4-B 12-30 13:40
PROVIDERS: ADMIT Internal Medicine; ATTEND Internal Medicine
PROC: 0BBF4ZX Excision of Right Lower Lung Lobe, Percutaneous Endoscopic Approach, Diagnostic (ICD-10-PCS; principal; 2020-01-05)
PROC: 0BBD4ZX Excision of Right Middle Lung Lobe, Percutaneous Endoscopic Approach, Diagnostic (ICD-10-PCS; 2020-01-05)
DX: J84.89 Other specified interstitial pulmonary diseases (principal); J15.7 Pneumonia due to Mycoplasma pneumoniae; J96.01 Acute respiratory failure with hypoxia; I21.A1 Myocardial infarction type 2; E87.1 Hypo-osmolality and hyponatremia; R04.2 Hemoptysis; K56.7 Ileus, unspecified; Z20.828 Contact with and (suspected) exposure to other viral communicable diseases; I10 Essential (primary) hypertension; R74.8 Abnormal levels of other serum enzymes; D72.829 Elevated white blood cell count, unspecified; T38.0X5A Adverse effect of glucocorticoids and synthetic analogues, initial encounter; R74.01 Elevation of levels of liver transaminase levels; I28.8 Other diseases of pulmonary vessels; E87.5 Hyperkalemia; Z28.21 Immunization not carried out because of patient refusal; Z87.891 Personal history of nicotine dependence; Z87.11 Personal history of peptic ulcer disease; Z79.899 Other long term (current) drug therapy
CPT/HCPCS: 36415; 71045; 74160; 80048; 80053; 80074; 80202; 81015; 82553; 83516; 83520; 83605; 83615; 84132; 85025; 85652; 86038; 86160; 86225; 86256; 86331; 86376; 86480; 86602; 86606; 86612; 86635; 86671; 86698; 86769; 87070; 87102; 87116; 87205; 87206; 87385; 87389; 87899; 88184; 88307; 88312; 93005; 94640; 94760; 96374; 96375; J0171; J0360; J0456; J0690; J0692; J1100; J1885; J2405; J2704; J2920; J2930; J3010; J3490; J7050; J7070; J7512; J7620; Q0162; Q9967; S0020; U0002

== ENCOUNTER 2020-01-21 07:33 | Outpatient (CLI) | payer OTHER ==
--- NOTE | 2020-01-21 10:04 | RAD ---
PA AND LATERAL CHEST: Date: 01/21/2020 HISTORY: Dyspnea. COMPARISON: 01/09/2020 exam. FINDINGS: Heart size within normal limits. Some very slight improvement to the parenchymal change of the right base with persistent pleural changes. The left lung is clear. IMPRESSION: Slight improvement to the parenchymal changes in the right lung base. POS: ZARI
== END 2020-01-21 07:34 | disposition home or self-care (01) ==
LOC: RAD 07:33
PROVIDERS: ATTEND Internal Medicine Critical Care Medicine
DX: R06.00 Dyspnea, unspecified (principal)
CPT/HCPCS: 71046

== ENCOUNTER 2020-01-21 09:21 | Inpatient (IN) | payer SELFPAY ==
--- NOTE | 2020-01-21 09:50 | PRG ---
DATE OF SERVICE: 01/21/2020 SUBJECTIVE: Mr. Hemphill is a very pleasant 54-year-old male who was seen in the hospital in December with a diffuse reticulonodular infiltrate. Autoimmune serology including ANCA and a lupus panel did not reveal a possible etiology. He underwent surgical biopsy, which showed interstitial pneumonitis. The pathology was sent to [facility], which felt that he had an alveolar hemorrhage with his organizing pneumonia. He is seen back in the office today and noted to be extremely tachypneic and tachycardic with walking in from the examiner to the waiting room. Surprisingly, his chest x-ray is dramatically improved. He said he was ambulating with minimal dyspnea prior to discharge. Last admission, it was complicated by an ileus, that resolved with an NG tube. With each day steroids and antibiotics, he improved and was sent home on a tapering dose of steroids. He says the day after he got home he started getting short of breath again and has not really recovered. 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 I have recommended that he be readmitted and a CT pulmonary angiogram done to rule out thromboembolic disease. PHYSICAL EXAMINATION IN THE OFFICE: VITAL SIGNS: Heart rate was 120, oximetry was 94% on room air, respiratory rate was 30 when he walked in from the examiner and we did calm down to a rate in the low 20s. HEAD AND NECK: Unremarkable. LUNGS: Remarkable for crackles, dramatically improved when in the hospital. He has decreased breath sounds at his right base. HEART: Regular rhythm. No S3. ABDOMEN: Soft. EXTREMITIES: Without asymmetry. PLAN: I talked to emergency physician about working him up thromboembolic disease. He probably also needs echocardiogram and BNP with his lab. We will follow him. Hopefully, this is a short stay and we can get him better where he can go back to work. Job ID: [id number]
[2020-01-21 09:57] LABS: #Eosinphils 0.1 thou/uL (0.0-0.7); #Lymphocytes 1.5 thou/uL (1.20-3.40); #Monocytes 0.8 thou/uL (0.11-0.59); #Neutrophils 9.6 thou/uL (1.40-6.50); %Basophils 0.4 % (0.0-1.0); %Eosinophils 0.9 % (0.0-10.0); %Lymphocytes 12.4 % (21.0-51.0); %Monocytes 6.8 % (0.0-10.0); %Neutrophils 79.5 % (42.0-75.0); Mean Corpuscular HGB CONC 32.5 g/dL (32.0-36.0); Mean Corpuscular Hemoglobin 31.6 pg (27.0-31.0); Mean Corpuscular Volume 97.3 fL (78.0-98.0); Mean Platelet Volume 6.7 fL (7.4-10.4); Platelet Count 209 thou/uL (130-400); RBC Distribution Width 14.5 % (11.5-14.5); Red Blood Cell (RBC) Count 3.15 mill/uL (4.70-6.10); White Blood Cell (WBC) Count 12.1 thou/uL (4.8-10.8)
--- NOTE | 2020-01-21 10:49 | CT ---
CTA Angio Chest W WO Con 01/21/2020 10:27 AM Indication: History of lung biopsy 2 weeks ago with increased shortness of breath Technique: Multiple CTA images were obtained of the thorax with IV contrast. 3-D rendering: MIP jus nstructed images were created and reviewed. Comparison: Prior CTA of the chest dated December 22, 2019 Findings: Pulmonary arteries: The timing of the contrast bolus slightly limits evaluation of the segmental pul monary arterial branches. No definite central pulmonary embolus is evident. Heart and Aorta: Normal appearing. Mediastinum:Normal appearing. No enlarged lymph nodes. Lungs:Diffuse reticular nodular airspace opacities within both lungs appear slightly less prominent t treadwell on the prior exam but a cyst. There are areas of subsegmental volume loss within the right lower lobe. There is improving consolidation in the lateral right middle lobe. Pleural space: There is been interval development of a moderate loculated right-sided pleural effusi on. Upper Abdomen: No acute abnormality. Osseous Structures: No acute osseous abnormality. Soft tissues:No abnormality. Other findings:None. Impression: 1. No central pulmonary embolus demonstrated. 2. Improving diffuse reticular nodular airspace opacities within both lungs consistent with improving infectious or inflammatory bronchiolitis. There is improving but persistent consolidation within the right middle lobe seen on a CT the abdomen dated December 31, 2019. There has been interval devel opment of a moderate loculated right-sided pleural effusion.
[2020-01-21 11:07] LABS: SARS-CoV-2 NAA Rapid Test Not Detected (NotDetected)
[2020-01-21 11:21] LABS: ALT (SGPT) 38 U/L (8-55); AST (SGOT) 25 U/L (5-34); Albumin 3.6 g/dL (3.5-5.0); Alkaline Phosphatase 125 U/L (40-110); Anion Gap 12 mmol/L (10-20); BUN (Urea Nitrogen) 10 mg/dL (8.4-25.7); Bilirubin, Total 0.3 mg/dL (0.2-1.2); CK (CPK) 64 U/L (30-200); Calc. Creatinine Clearance 0 mL/min (70-130); Calcium 8.9 mg/dL (7.8-10.44); Carbon Dioxide 26 mmol/L (22-29); Chloride 102 mmol/L (98-107); Globulin 3.3 g/dL (2.4-3.5); Glucose 112 mg/dL (70-105); Potassium 3.9 mmol/L (3.5-5.1); Protein, Total 6.9 g/dL (6.0-8.3); Sodium 136 mmol/L (136-145)
[2020-01-21] MEDS ORDERED: Senokot S 8.6-50 MG TAB PO PRN (12:15)
[2020-01-21] MEDS ORDERED: Iopamidol-370 76% 500 ML 1 ML ONE (12:59)
[2020-01-21 15:25] LABS: INR-International Normal Ratio 0.9; PTT 29.2 sec (22.9-36.1); Prothrombin Time 12.4 sec (12.0-14.7)
[2020-01-21 15:40] LABS: D-Dimer Test 6.92 *mcg/mL (0.27-0.43)
--- NOTE | 2020-01-21 16:57 | ULT ---
ULTRASOUND WITH DOPPLER DUPLEX VENOUS LOWER EXTREMITIES BILATERAL: 01/21/20 HISTORY: 54-year-old male with bilateral lower extremity edema. TECHNIQUE: Color flow Doppler, spectral waveform analysis of pulsed Doppler, and hastings-scale imaging with franca марина and augmentation, were used to evaluate the bilateral common femoral, femoral, popliteal, air box tester ior tibial, and superficial femoral, veins; and the proximal portions of the profunda femoral and gre ater saphenous, veins. FINDINGS: There is normal compressibility, demonstration of blood flow by color Doppler and pulsed Doppler, and response to augmentation, in all interrogated veins. IMPRESSION: Negative. No deep vein thrombosis in the bilateral lower extremities. jn[] POS: JIN
--- NOTE | 2020-01-21 17:19 | HP ---
CHIEF COMPLAINT: Shortness of breath. HISTORY OF PRESENT ILLNESS: The patient is a 54-year-old male, who was sent from the Pulmonology's office for worsening shortness of breath. The patient was recently discharged on 01/09, was diagnosed with alveolar hemorrhage with organizing pneumonia. This was biopsy-proven. The patient went to see his manager international today, stated that he continues to have shortness of breath on minimal exertion. No orthopnea or PND noted. The patient denies any chest tightness or chest pressure; however, noticed that he has significant shortness of breath on minimal exertion. At this time, he was admitted to the hospital for further evaluation. Denies any fevers or chills, any nausea, vomiting, or diarrhea. PAST MEDICAL HISTORY: He has a history of hypertension and ulcers. PAST SURGICAL HISTORY: He has had right hip surgery followed by fracture related to fall and also right lung biopsy. FAMILY HISTORY: No history of heart disease or stroke. SOCIAL HISTORY: Never smoked. No alcohol use or drug use. He works around the [employer] area. He is engaged. 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 REVIEW OF SYSTEMS: All negative except for the ones mentioned in the HPI. PHYSICAL EXAMINATION: VITAL SIGNS: As of the following; temperature of 98.7, respirations of 18, pulse of 101, blood pressure 154/56, and O2 saturations 97% on room air. GENERAL: He is awake, alert, and oriented x3. Does not appear in any distress. CV: S1 and S2 present. No murmurs, rubs, or gallops. LUNGS: Clear to auscultation. No rhonchi or wheezes noted. ABDOMEN: Soft and nontender. Bowel sounds present x2. EXTREMITIES: No edema. Pedal pulses are present x2. NEUROLOGIC: Neurovascular rainey, no focal deficits noted. SKIN: No cuts, lesions, or bruises noted. LABORATORY RESULTS: As of the following; WBCs of 12.1, hemoglobin of 10.0, hematocrit of 30.6, and platelets of 209. Chemistry; sodium of 132, potassium of 3.9, BUN of 10, and creatinine of 0.86. Troponin x1 is negative and BNP is 10. The patient had a CTA done, which did not indicate any acute pulmonary embolism, but indicated improving diffuse reticular nodular airspace opacities with both lungs consistent with improved infectious and inflammatory bronchiolitis. However, there was a persistent consolidation within the right middle lobe seen on the CT abdomen dated December 30 and there is also moderate loculated right pleural effusion. ASSESSMENT AND PLAN: The patient is a very pleasant 54-year-old male, who presents to the hospital with complaints of worsening shortness of breath. 1. Dyspnea. This etiology could be secondary to his current underlying lung disease versus heart failure could be right or left versus pulmonary embolism, which has been ruled out by a CT. However, the patient would also require Dopplers versus infectious etiology. The patient currently does not have a fever, not really with just mild leukocytosis unlikely to be infectious. However, he does have a loculated effusion and also has some findings on the CT consistent with an infiltrate in the right middle lobe. Also, right heart failure is definitely a possibility. We will get an echocardiogram. His BNP was normal. He has no other cardiac history. We will get an echocardiogram to see to evaluate this patient may require Cardiology, may require even a heart catheterization to check his pressures. We will also get a lower extremity venous Dopplers. We will hold off on the antibiotics for now. We will consult Pulmonary and continue to follow along with the patient. 2. Hypertension. We will continue his home medications. 3. Alveolar hemorrhage with organizing pneumonia. His workup including SATYA was negative. He did have mycoplasma pneumonia, IgG titers were 828 and IgM titers were 770. He also had a sent out lab for leukemia lymphoma panel, which indicated no immunophenotypic evidence of lymphoproliferative disorder and the patient also had an Acinetobacter haemolyticus which was higher than the reference range, for now we will just get Pulmonary on board. May require Infectious Disease; however, Infectious Disease has seen this patient in the past. He has had a significant workup done, so far everything has been negative including his SATYA screen and his autoimmune workup has been negative. 4. Deep venous thrombosis prophylaxis. We will put patient on some sequential compression devices and also Lovenox. Job ID: [id number]
[2020-01-21] MEDS: Mometasone 200 MCG/Formoterol 5 MCG 120 PUFF INHALER INH SCH (17:33)
[2020-01-21] MEDS ORDERED: Amlodipine 5 MG TAB PO SCH (20:15)
[2020-01-21] MEDS: Acetaminophen 325 MG TAB PO PRN (23:04)
[2020-01-22] MEDS: Acetaminophen 325 MG TAB PO PRN (03:47)
[2020-01-22] MEDS ORDERED: traMADol HCl 50 MG TAB PO SCH (04:45)
[2020-01-22 05:04] LABS: #Eosinphils 0.3 thou/uL (0.0-0.7); #Lymphocytes 3.1 thou/uL (1.20-3.40); #Monocytes 0.9 thou/uL (0.11-0.59); #Neutrophils 5.1 thou/uL (1.40-6.50); %Basophils 0.4 % (0.0-1.0); %Eosinophils 2.8 % (0.0-10.0); %Monocytes 9.8 % (0.0-10.0); Hemoglobin 9.2 g/dL (14.0-18.0); Mean Corpuscular Hemoglobin 32.5 pg (27.0-31.0); Mean Corpuscular Volume 98.4 fL (78.0-98.0); Mean Platelet Volume 6.7 fL (7.4-10.4); Platelet Count 184 thou/uL (130-400); RBC Distribution Width 14.7 % (11.5-14.5); Red Blood Cell (RBC) Count 2.83 mill/uL (4.70-6.10); White Blood Cell (WBC) Count 9.9 thou/uL (4.8-10.8)
[2020-01-22 05:11] LABS: Anion Gap 13 mmol/L (10-20); BUN (Urea Nitrogen) 11 mg/dL (8.4-25.7); Calc. Creatinine Clearance 139 mL/min (70-130); Calcium 8.2 mg/dL (7.8-10.44); Carbon Dioxide 26 mmol/L (22-29); Chloride 104 mmol/L (98-107); Glucose 131 mg/dL (70-105); Potassium 3.7 mmol/L (3.5-5.1); Sodium 139 mmol/L (136-145)
[2020-01-22] MEDS ORDERED: Ketorolac Tromethamine 30 MG/ML VIAL IVP PRN (07:23)
[2020-01-22] MEDS: Mometasone 200 MCG/Formoterol 5 MCG 120 PUFF INHALER INH SCH ×2 (08:33→18:54)
[2020-01-22] MEDS ORDERED: Enoxaparin Sodium 40 MG/0.4 ML SYRINGE SC SCH (09:00)
[2020-01-22] MEDS ORDERED: predniSONE 20 MG TAB PO SCH (09:15)
[2020-01-22] MEDS ORDERED: Famotidine 20 MG TAB PO SCH (09:30)
[2020-01-22] MEDS ORDERED: Nitroglycerin 0.4 MG TAB (25 Tab Bottle) SL PRN (09:30)
[2020-01-22] MEDS ORDERED: PROPOFOL 200 MG/20 ML VIAL ONE (10:16)
[2020-01-22] MEDS ORDERED: Ketorolac Tromethamine 30 MG/ML VIAL ONE (10:16)
[2020-01-22] MEDS ORDERED: Ondansetron PF 4 MG/2 ML Vial ONE (10:16)
[2020-01-22] MEDS ORDERED: Rocuronium Bromide 10 MG/ML (10ML VIAL) ONE (10:16)
[2020-01-22] MEDS ORDERED: PHENYLEPHRINE-NS 100 MCG/ML 10 ML SYRINGE ONE (10:16)
[2020-01-22] MEDS ORDERED: Lidocaine 1% PF 5 ML VIAL ONE (10:16)
[2020-01-22] MEDS ORDERED: Glycopyrrolate 0.2 MG/ML 5 ML SYRINGE ONE (10:16)
[2020-01-22] MEDS ORDERED: Dexamethasone 20 MG/5 ML VIAL ONE (10:16)
--- NOTE | 2020-01-22 11:03 | CON ---
DATE OF CONSULTATION: 01/22/2020 HISTORY OF PRESENT ILLNESS: Mr. Hemphill is a 54-year-old gentleman, who underwent thoracoscopic lung biopsy of his right lung on 01/04. The pathology revealed BOOP. The appearance of CT of his chest has greatly improved, although he is still significantly short of breath. He did have a right-sided effusion that Dr. Ruby attempted a thoracentesis on and only aspirated a small amount of blood. My concern is this is hemothorax and will not drain nor aspirate and will need to be irrigated clear. PAST MEDICAL HISTORY: 1. Hypertension. 2. Peptic ulcer disease. PAST SURGICAL HISTORY: 1. EGD with cautery of a bleeding ulcer. 2. Right thoracoscopy for open lung biopsy. SOCIAL HISTORY: He does not use tobacco or alcohol. 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 REVIEW OF SYSTEMS: Negative. PHYSICAL EXAMINATION: GENERAL: This is a well-developed, well-nourished man, resting comfortably. VITAL SIGNS: Temperature is 98.2, pulse is 84 and regular, and blood pressure is 150/84. LUNGS: Clear bilaterally. CARDIAC: Heart rhythm is regular. ABDOMEN: Soft and nontender. EXTREMITIES: No edema. ASSESSMENT AND PLAN: I think repeat thoracoscopy/thoracotomy is warranted in this situation to fully evacuate this fluid. My best guess is this is going to be clotted hemothorax. We will probably not evacuate well with just chest tube drainage. Due to the patient's body habitus, also placing a chest tube accurately in his lower chest is going to be difficult. Job ID: [id number]
--- NOTE | 2020-01-22 11:05 | OP ---
DATE OF PROCEDURE: 01/22/2020 PROCEDURE PERFORMED: Thoracentesis. INDICATION: Pleural fluid on the right, rule out hemothorax after thoracoscopy. DESCRIPTION OF PROCEDURE: Consent was obtained from the patient prior to the procedure. Right posterior hemithorax was cleansed with chlorhexidine. 10 mL of 1% lidocaine was used to anesthetize skin and the pleura. A 22-gauge needle was used to localize bloody fluid. An 8-Wolof catheter was inserted, but I could not aspirate any fluid, suggesting this is loculated blood. IMPRESSION: Organizing pneumonia with alveolar hemorrhage, radiographically improved significantly, but still with some mild interstitial and alveolar changes on CT done yesterday. We will put him back on steroids. Job ID: [id number]
[2020-01-22 12:20] LABS: Magnesium 1.9 mg/dL (1.6-2.6); Phosphorus 4.1 mg/dL (2.3-4.7)
[2020-01-22 12:46] LABS: Protein C Activity 164 % (78-152)
[2020-01-22 16:23] LABS: Factor VIII Test 375.2 % ACTIVE (56-157)
[2020-01-22] MEDS ORDERED: Fentanyl 100 MCG/2 ML VIAL ONE ×2 (16:26→19:09)
[2020-01-22] MEDS ORDERED: Promethazine HCl 25 MG/ML VIAL SLOW IVP PRN (16:56)
[2020-01-22] MEDS ORDERED: Ondansetron HCl/PF 4 MG/2 ML Vial IVP PRN (16:56)
[2020-01-22] MEDS ORDERED: Promethazine HCl 25 MG/ML VIAL IM PRN ×3 (16:56→19:25)
[2020-01-22] MEDS ORDERED: CEFAZOLIN 2 GM in Premix Bag 1 BAG IVPB SCH (17:00)
[2020-01-22] MEDS ORDERED: Bupivacaine PF 0.5% 30 ML VIAL ONE (18:04)
[2020-01-22] MEDS ORDERED: Ondansetron PF 4 MG/2 ML Vial IVP PRN ×2 (19:08→19:25)
[2020-01-22] MEDS ORDERED: diphenhydrAMINE 25 MG CAP PO PRN (19:08)
[2020-01-22] MEDS ORDERED: diphenhydrAMINE 50 MG/ML VIAL IM PRN (19:08)
[2020-01-22] MEDS ORDERED: diphenhydrAMINE 50 MG/ML VIAL IVP PRN (19:08)
[2020-01-22] MEDS ORDERED: Zolpidem Tartrate 5 MG TAB PO PRN (19:08)
[2020-01-22] MEDS ORDERED: fentaNYL Citrate/PF 2,000 MCG in Sodium Chloride 0.9% 60 ML IV PRN (19:08)
[2020-01-22] MEDS ORDERED: Naloxone HCl 0.4 mg/ml Vial IV PRN (19:08)
[2020-01-22] MEDS ORDERED: Communication Order-Pharmacy FS SCH (19:15)
--- NOTE | 2020-01-22 19:39 | RAD ---
PORTABLE CHEST ONE VIEW: 01/22/20 at 7:11 p.m. HISTORY: Status post thoracotomy. FINDINGS/IMPRESSION: Comparison is made with the exam of previous day. There has been interval placement of a right chest tube. Patchy opacities are seen in the right mid a nd lower lung zones. The heart size is borderline. No pneumothoraces or left pleural effusion is seen . POS: MZA
--- NOTE | 2020-01-22 20:07 | PDOC.HOSPP ---
- Subjective Encounter Date: 01/22/20 Encounter Time: 11:30 Subjective: Patient seen and examined for shortness of breath due to pulmonary hemorrhage. Continues to have shortness of breath with mild dry cough. Denies any chest pain, palpitations, syncope or lower extremity swelling. - Objective Vital Signs & Weight: Vital Signs (12 hours) Temp Pulse Pulse Pulse Resp BP BP 01/22/20 11:40 98.6 F 88 20 01/22/20 10:30 106 H 107 H 144/89 H 143/85 H BP Pulse Ox Pulse Ox 01/22/20 11:40 148/84 H 01/22/20 10:30 98 96 Weight Admit Weight 234 lb Weight 234 lb I&O: 01/21/20 01/22/20 01/23/20 06:59 06:59 06:59 Intake Total 1800 Output Total 1400 Balance 400 Result Diagrams: 01/22/20 04:19 01/22/20 04:19 Additional Labs: Abnormal Lab Results - Last 48 hrs 01/21/20 09:39: Alkaline Phosphatase 125 H, Albumin/Globulin Ratio 1.1 L 01/21/20 09:39: WBC 12.1 H, RBC 3.15 L, Hgb 10.0 L, Hct 30.6 L, MCH 31.6 H, MPV 6.7 L, Neutrophils % 79.5 H, Lymphocytes % 12.4 L, Neutrophils # 9.6 H, Monocytes # 0.8 H 01/21/20 15:04: D-Dimer 6.92 H, Protein C Chromogenic 164 H, Factor VIII Activity 375.2 H 01/22/20 04:19: RBC 2.83 L, Hgb 9.2 L, Hct 27.9 L, MCV 98.4 H, MCH 32.5 H, RDW 14.7 H, MPV 6.7 L, Monocytes # 0.9 H Radiology Reviewed by me: Yes (CTA chestright-sided loculated pleural effusion) EKG Reviewed by me: Yes (Sinus rhythm on telemetry) Hospitalist ROS - Review of Systems Cardiovascular: denies: chest pain, palpitations, orthopnea, paroxysmal noc. dyspnea, edema, light headedness, other Gastrointestinal: denies: nausea, vomiting, abdominal pain, diarrhea, constipation, melena, hematochezia, other - Medication Medications: Active Medications Generic Name Dose Route Start Last Admin Trade Name Freq PRN Reason Stop Dose Admin Acetaminophen 650 mg 01/21/20 12:15 01/22/20 03:47 Acetaminophen 325 Mg Tab PO 650 mg Q4H PRN Administration Headache/Fever/Mild Pain (1-3) Mometasone Furoate/Formoterol Fumar 2 puff 01/21/20 18:30 01/22/20 18:54 Mometasone 200 Mcg/Formoterol 5 Mcg 120 Puff Inhaler INH Not Given BID-RT KRISTY - Exam General Appearance: ill appearing Neck: supple, symmetric, no JVD, no thyromegaly Heart: RRR, no gallops, no rubs, normal peripheral pulses Respiratory: normal chest expansion (Scattered), rales, rhonchi, tachypneic, wheezes Gastrointestinal: soft, normal bowel sounds, no guarding, no rigidity Extremities: no cyanosis, no clubbing, no edema Extremities - other findings: No calf tenderness Neurological: no new deficit Psychiatric: normal affect, A&O x 3 Hosp A/P - Plan DVT proph w/SCDs Shortness of breath due to organizing pneumonia with alveolar hemorrhage/pleural effusion S/p thoracentesis 01/21 Hypertension Recent hospitalization for respiratory failure due to pulmonary hemorrhage Peptic ulcer disease Obesity with a BMI of 30 Chronic anemia probably due to nutritional deficiency Plan: Echocardiogram pending at this time. Pulmonary/cardiovascular input appreciated. Thoracoscopy planned. Continue n.p.o. status. Started on prednisone. Continue inhaled steroids. GI prophylaxis. Pain control. A.m. labs. Continue other medications as above.
[2020-01-22] MEDS: Sodium Chloride 0.9% 1,000 ML IV SCH (22:21)
[2020-01-22] MEDS: Famotidine 20 MG TAB PO SCH (22:21)
--- NOTE | 2020-01-22 23:35 | OP ---
DATE OF PROCEDURE: 01/22/2020 PREOPERATIVE DIAGNOSIS: Right hemothorax, post thoracoscopy and lung biopsy. POSTOPERATIVE DIAGNOSIS: Right hemothorax, post thoracoscopy and lung biopsy. PROCEDURES PERFORMED: Right thoracoscopy with conversion of thoracotomy for evacuation of hemothorax and control of intrathoracic bleed from adhesion. ANESTHESIA: General endotracheal. ESTIMATED BLOOD LOSS: Less than 100. FINDINGS: Approximately 1 L of bloody fluid and hematoma within the chest, multiple adhesions. There was one area of active bleeding from an adhesion, which was controlled with cautery. DESCRIPTION OF PROCEDURE: After consent was obtained, the patient was brought to the operating room and placed in supine position on the operating table. Appropriate central line and monitors were placed, and general endotracheal anesthesia was induced. The patient was placed in the left lateral decubitus position. Right chest was prepped and draped in usual sterile fashion. Joints were appropriately padded and SCDs used. Previous port sites anteriorly and in the posterior clavicular line were opened and the thoracoscope was inserted. On inspection, there was a large amount of hemothorax, which was evacuated and irrigated. As we irrigated, the fluid continued to be bloody. I was not able to identify where the bleeding was coming from, therefore, we elected to open. On opening the chest, there was an adhesion that was dripping into the chest, which was controlled with cautery. Chest was irrigated clear. Lung was inflated and expanded and filled the chest cavity nicely. 32-Moroccan right angle and straight chest tube were placed and secured with silk sutures. Ribs were reapproximated with #1 Vicryl. Wounds were then copiously irrigated and closed in layers. Dermabond was applied to skin. The patient was awakened, extubated, and transferred to recovery room in stable condition. Needle, sponge, and instrument counts were all reported as correct at the end of the procedure. Job ID: [id number]
[2020-01-22] MEDS: Ketorolac Tromethamine 30 MG/ML VIAL IVP SCH (23:43)
[2020-01-23] MEDS: CEFAZOLIN 2 GM in Premix Bag 1 BAG IVPB SCH ×3 (03:00→17:51)
[2020-01-23] MEDS: predniSONE 20 MG TAB PO SCH (03:00)
[2020-01-23 04:32] LABS: #Basophils 0.1 thou/uL (0.0-0.2); #Eosinphils 0.1 thou/uL (0.0-0.7); #Lymphocytes 2.4 thou/uL (1.20-3.40); #Monocytes 1.5 thou/uL (0.11-0.59); %Basophils 0.4 % (0.0-1.0); %Eosinophils 0.4 % (0.0-10.0); %Lymphocytes 18.3 % (21.0-51.0); %Monocytes 11.9 % (0.0-10.0); Hemoglobin 9.5 g/dL (14.0-18.0); Mean Corpuscular HGB CONC 30.9 g/dL (32.0-36.0); Mean Corpuscular Hemoglobin 30.1 pg (27.0-31.0); Mean Corpuscular Volume 97.3 fL (78.0-98.0); Mean Platelet Volume 6.7 fL (7.4-10.4); Platelet Count 226 thou/uL (130-400); RBC Distribution Width 14.5 % (11.5-14.5); Red Blood Cell (RBC) Count 3.14 mill/uL (4.70-6.10)
[2020-01-23 04:50] LABS: Anion Gap 14 mmol/L (10-20); BUN (Urea Nitrogen) 17 mg/dL (8.4-25.7); Calc. Creatinine Clearance 120 mL/min (70-130); Calcium 7.9 mg/dL (7.8-10.44); Carbon Dioxide 24 mmol/L (22-29); Chloride 101 mmol/L (98-107); Glucose 140 mg/dL (70-105); Potassium 4.7 mmol/L (3.5-5.1); Sodium 134 mmol/L (136-145)
[2020-01-23] MEDS: Ketorolac Tromethamine 30 MG/ML VIAL IVP SCH ×4 (05:35→23:52)
--- NOTE | 2020-01-23 07:53 | PRG ---
DATE OF SERVICE: 01/23/2020 SUBJECTIVE: He is postoperative day 1 after right thoracotomy for evacuation of clotted hemothorax. OBJECTIVE: VITAL SIGNS: He has been afebrile. Heart rate is 88 and blood pressure is 123/67. LUNGS: Clear bilaterally. Chest tube has had 300 mL total of serosanguineous output. He has no air leak. LABORATORY DATA: Hemoglobin is 9.5, which is stable. ASSESSMENT AND PLAN: Continue chest tubes to suction. Job ID: [id number]
[2020-01-23] MEDS: Mometasone 200 MCG/Formoterol 5 MCG 120 PUFF INHALER INH SCH ×2 (07:59→18:19)
--- NOTE | 2020-01-23 09:05 | RAD ---
SINGLE VIEW CHEST: Date: 01/23/2020 COMPARISON: 01/22/2020. HISTORY: Status post thoracotomy. FINDINGS: Single view of the chest shows an enlarged but stable cardiomediastinal silhouette. There are right-s ided chest tubes. There is a stable opacity in the mid portion of the right thorax. No definite pneum othorax is seen. There is blunting of the right costophrenic angle which may represent a small right pleural effusion. IMPRESSION: Stable exam. POS: ALESSANDRAA
[2020-01-23] MEDS: Famotidine 20 MG TAB PO SCH ×2 (09:07→20:26)
[2020-01-23] MEDS: Sodium Chloride 0.9% 1,000 ML IV SCH ×2 (09:08→17:51)
--- NOTE | 2020-01-23 22:18 | PDOC.HOSPP ---
- Subjective Encounter Date: 01/23/20 Encounter Time: 10:30 Subjective: Patient up in bed no complaints. - Objective Vital Signs & Weight: Vital Signs (12 hours) Temp Pulse Resp BP Pulse Ox 01/23/20 18:19 98 14 98 01/23/20 16:20 98.4 F 94 16 142/81 H 97 01/23/20 11:26 98.4 F 88 18 138/84 95 Weight Admit Weight 234 lb Weight 234 lb I&O: 01/22/20 01/23/20 01/24/20 06:59 06:59 06:59 Intake Total 1800 2665 1750 Output Total 1400 1300 1350 Balance 400 1365 400 Result Diagrams: 01/23/20 04:20 01/23/20 04:20 Hospitalist ROS - Review of Systems Cardiovascular: denies: chest pain, palpitations, orthopnea, paroxysmal noc. dyspnea, edema, light headedness, other Gastrointestinal: denies: nausea, vomiting, abdominal pain, diarrhea, constipation, melena, hematochezia, other Genitourinary: denies: dysuria, frequency, incontinence, hematuria, retention, other - Medication Medications: Active Medications Generic Name Dose Route Start Last Admin Trade Name Freq PRN Reason Stop Dose Admin Acetaminophen 650 mg 01/21/20 12:15 01/22/20 03:47 Acetaminophen 325 Mg Tab PO 650 mg Q4H PRN Administration Headache/Fever/Mild Pain (1-3) Famotidine 20 mg 01/22/20 21:00 01/23/20 20:26 Famotidine 20 Mg Tab PO 20 mg BID KRISTY Administration Sodium Chloride 1,000 mls @ 100 mls/hr 01/22/20 19:25 01/23/20 17:51 Normal Saline 0.9% IV 1,000 mls .Q10H KRISTY Administration Ketorolac Tromethamine 30 mg 01/22/20 23:59 01/23/20 17:51 Ketorolac Tromethamine 30 Mg/Ml Vial IVP 01/25/20 18:01 Not Given Q6HR KRISTY Mometasone Furoate/Formoterol Fumar 2 puff 01/21/20 18:30 01/23/20 18:19 Mometasone 200 Mcg/Formoterol 5 Mcg 120 Puff Inhaler INH 2 puff BID-RT KRISTY Administration Prednisone 40 mg 01/23/20 02:00 01/23/20 03:00 Prednisone 20 Mg Tab PO 40 mg 0200 KRISTY Administration Sodium Chloride 10 ml 01/22/20 21:00 01/23/20 20:26 Flush - Normal Saline 10 Ml Syringe IVF 10 ml Q12HR KRISTY Administration - Exam Neck: negative: supple, symmetric, no JVD, no thyromegaly, no lymphadenopathy, no carotid bruit, JVD Heart: negative: RRR, no murmur, no gallops, no rubs, normal peripheral pulses, irregular, diminshed peripheral pulses, murmur present, II/IV, III/IV Respiratory: rales Respiratory - other findings: To right lung area Gastrointestinal: negative: soft, non-tender, non-distended, normal bowel sounds, no palpable masses, no hepatomegaly, no splenomegaly, no bruit, no guarding, no rigidity, tender to palpation, distended, diminished bowl sounds, voluntary guarding Hosp A/P - Plan DVT proph w/SCDs Shortness of breath due to organizing pneumonia with alveolar hemorrhage/pleural effusion S/p thoracentesis 01/21 Hypertension Recent hospitalization for respiratory failure due to pulmonary hemorrhage Peptic ulcer disease Obesity with a BMI of 30 Chronic anemia probably due to nutritional deficiency Plan: Echocardiogram pending at this time. Pulmonary/cardiovascular input appreciated. Thoracoscopy planned. Continue n.p.o. status. Started on prednisone. Continue inhaled steroids. GI prophylaxis. Pain control. A.m. labs. Continue other medications as above. 01/22 status post right thoracotomy for evacuation of clotted hemothorax. Chest tube to suction. We will continue to monitor
[2020-01-24] MEDS: predniSONE 20 MG TAB PO SCH (02:07)
[2020-01-24] MEDS: Sodium Chloride 0.9% 1,000 ML IV SCH (04:22)
--- NOTE | 2020-01-24 05:38 | PRG ---
DATE OF SERVICE: 01/24/2020 The patient has been afebrile, stable vital signs. His chest tube output was 100 mL over the past 24 hours of serous fluid and there was no air leak. Chest x-ray yesterday was reviewed, is pending this morning. His chest tubes were removed. Job ID: [id number]
[2020-01-24] MEDS: Ketorolac Tromethamine 30 MG/ML VIAL IVP SCH ×4 (06:00→23:34)
[2020-01-24] MEDS: Mometasone 200 MCG/Formoterol 5 MCG 120 PUFF INHALER INH SCH ×2 (07:47→18:55)
[2020-01-24] MEDS: Famotidine 20 MG TAB PO SCH ×2 (09:24→20:29)
--- NOTE | 2020-01-24 10:00 | RAD ---
SINGLE VIEW CHEST: Date: 01/24/2020 COMPARISON: 01/23/2020. HISTORY: Status post thoracotomy. Chest tube removal. FINDINGS: Single view of the chest shows normal sized cardiomediastinal silhouette. The right-sided chest tubes have been removed. No definite pneumothorax is seen. Stable opacity seen in the right lung base whic h may represent a pleural effusion and adjacent atelectasis or infiltrates. IMPRESSION: Stable exam status post chest tube removal. POS: EAA
[2020-01-24] MEDS ORDERED: Bisacodyl 5 MG TAB PO SCH (11:00)
[2020-01-25] MEDS: predniSONE 20 MG TAB PO SCH (02:21)
[2020-01-25] MEDS: Ketorolac Tromethamine 30 MG/ML VIAL IVP SCH ×2 (05:44→12:38)
--- NOTE | 2020-01-25 07:43 | RAD ---
XR Chest 1 View Portable History: Thoracotomy Comparison: Radiograph prior day Findings: Right hemithorax volume loss with moderate effusion is similar. Left lung is clear. No pneu mothorax. Impression: Similar examination of the chest from yesterday. Moderate residual pleural fluid. No pneu mothorax.
[2020-01-25] MEDS: Mometasone 200 MCG/Formoterol 5 MCG 120 PUFF INHALER INH SCH ×2 (07:55→19:40)
[2020-01-25] MEDS: Famotidine 20 MG TAB PO SCH (08:28)
[2020-01-25 08:34] VITALS: BMI 31.8
--- NOTE | 2020-01-25 09:19 | PDOC.HOSPP ---
- Subjective Encounter Date: 01/24/20 Encounter Time: 11:45 Subjective: Patient up in bed states that he has not had a bowel movement. His chest tube was discontinued today - Objective Vital Signs & Weight: Vital Signs (12 hours) Temp Pulse Resp BP Pulse Ox 01/25/20 07:36 98.3 F 93 19 136/82 97 01/25/20 05:51 97.1 F L 130 H 22 H 156/83 H 94 L 01/24/20 23:49 98.5 F 104 H 22 H 169/95 H Weight Admit Weight 234 lb Weight 248 lb I&O: 01/24/20 01/25/20 01/26/20 06:59 06:59 06:59 Intake Total 6050 1720 Output Total 2650 900 Balance 3400 820 Result Diagrams: 01/23/20 04:20 01/23/20 04:20 Hospitalist ROS - Review of Systems Respiratory: denies: cough, dry, shortness of breath, hemoptysis, SOB with excertion, pleuritic pain, sputum, wheezing, other Cardiovascular: denies: chest pain, palpitations, orthopnea, paroxysmal noc. dyspnea, edema, light headedness, other Gastrointestinal: denies: nausea, vomiting, abdominal pain, diarrhea, constipation, melena, hematochezia, other - Medication Medications: Active Medications Generic Name Dose Route Start Last Admin Trade Name Freq PRN Reason Stop Dose Admin Acetaminophen 650 mg 01/21/20 12:15 01/22/20 03:47 Acetaminophen 325 Mg Tab PO 650 mg Q4H PRN Administration Headache/Fever/Mild Pain (1-3) Famotidine 20 mg 01/22/20 21:00 01/25/20 08:28 Famotidine 20 Mg Tab PO 20 mg BID KRISTY Administration Ketorolac Tromethamine 30 mg 01/22/20 23:59 01/25/20 05:44 Ketorolac Tromethamine 30 Mg/Ml Vial IVP 01/25/20 18:01 30 mg Q6HR KRISTY Administration Mometasone Furoate/Formoterol Fumar 2 puff 01/21/20 18:30 01/25/20 07:55 Mometasone 200 Mcg/Formoterol 5 Mcg 120 Puff Inhaler INH 2 puff BID-RT KRISTY Administration Prednisone 40 mg 01/23/20 02:00 01/25/20 02:21 Prednisone 20 Mg Tab PO 40 mg 0200 KRISTY Administration Senna/Docusate Sodium 2 tab 01/21/20 12:15 01/24/20 23:41 Senokot S 8.6-50 Mg Tab PO 2 tab BIDPRN PRN Administration Constipation Sodium Chloride 10 ml 01/22/20 21:00 01/25/20 08:29 Flush - Normal Saline 10 Ml Syringe IVF 10 ml Q12HR KRISTY Administration - Exam Neck: negative: supple, symmetric, no JVD, no thyromegaly, no lymphadenopathy, no carotid bruit, JVD Heart: negative: RRR, no murmur, no gallops, no rubs, normal peripheral pulses, irregular, diminshed peripheral pulses, murmur present, II/IV, III/IV Respiratory: negative: CTAB, no wheezes, no rales, no ronchi, normal chest expansion, no tachypnea, normal percussion, rales, rhonchi, tachypneic, wheezes Gastrointestinal: negative: soft, non-tender, non-distended, normal bowel sounds, no palpable masses, no hepatomegaly, no splenomegaly, no bruit, no guarding, no rigidity, tender to palpation, distended, diminished bowl sounds, voluntary guarding Hosp A/P - Plan DVT proph w/SCDs Shortness of breath due to organizing pneumonia with alveolar hemorrhage/pleural effusion S/p thoracentesis 01/21 Hypertension Recent hospitalization for respiratory failure due to pulmonary hemorrhage Peptic ulcer disease Obesity with a BMI of 30 Chronic anemia probably due to nutritional deficiency Plan: Echocardiogram pending at this time. Pulmonary/cardiovascular input appreciated. Thoracoscopy planned. Continue n.p.o. status. Started on prednisone. Continue inhaled steroids. GI prophylaxis. Pain control. A.m. labs. Continue other medications as above. 01/22 status post right thoracotomy for evacuation of clotted hemothorax. Chest tube to suction. We will continue to monitor 01/22 states that he feels much better and less short of breath while ambulating. We will provide him medications for constipation. Possible discharge when okay with pulmonary and cardio thoracic surgery.
[2020-01-25] MEDS ORDERED: HYDROcodone/Acetaminophen 5/325 mg Tablet PO PRN (09:21)
[2020-01-25] MEDS: HYDROcodone/Acetaminophen 5/325 mg Tablet PO PRN ×3 (12:38→23:27)
--- NOTE | 2020-01-25 18:01 | PDOC.HOSPP ---
- Subjective Encounter Date: 01/25/20 Encounter Time: 12:45 Subjective: Patient up in bed no complaints. - Objective Vital Signs & Weight: Vital Signs (12 hours) Temp Pulse Resp BP Pulse Ox 01/25/20 15:45 98.1 F 102 H 20 140/67 97 01/25/20 11:32 98.5 F 93 19 158/85 H 96 01/25/20 07:36 98.3 F 93 19 136/82 97 Weight Admit Weight 234 lb Weight 248 lb I&O: 01/24/20 01/25/20 01/26/20 06:59 06:59 06:59 Intake Total 6050 1720 1300 Output Total 2650 900 Balance 3400 820 1300 Result Diagrams: 01/23/20 04:20 01/23/20 04:20 Hospitalist ROS - Review of Systems Respiratory: denies: cough, dry, shortness of breath, hemoptysis, SOB with excertion, pleuritic pain, sputum, wheezing, other Cardiovascular: denies: chest pain, palpitations, orthopnea, paroxysmal noc. dyspnea, edema, light headedness, other Gastrointestinal: denies: nausea, vomiting, abdominal pain, diarrhea, constipation, melena, hematochezia, other - Medication Medications: Active Medications Generic Name Dose Route Start Last Admin Trade Name Freq PRN Reason Stop Dose Admin Acetaminophen 650 mg 01/21/20 12:15 01/22/20 03:47 Acetaminophen 325 Mg Tab PO 650 mg Q4H PRN Administration Headache/Fever/Mild Pain (1-3) Hydrocodone Bitart/Acetaminophen 2 tab 01/25/20 09:21 01/25/20 12:38 Hydrocodone/Acetaminophen 5/325 Mg Tablet PO 2 tab Q4H PRN Administration Moderate Pain (4-6) Famotidine 20 mg 01/22/20 21:00 01/25/20 08:28 Famotidine 20 Mg Tab PO 20 mg BID KRISTY Administration Ketorolac Tromethamine 30 mg 01/22/20 23:59 01/25/20 12:38 Ketorolac Tromethamine 30 Mg/Ml Vial IVP 01/25/20 18:01 30 mg Q6HR KRISTY Administration Mometasone Furoate/Formoterol Fumar 2 puff 01/21/20 18:30 01/25/20 07:55 Mometasone 200 Mcg/Formoterol 5 Mcg 120 Puff Inhaler INH 2 puff BID-RT KRISTY Administration Prednisone 40 mg 01/23/20 02:00 01/25/20 02:21 Prednisone 20 Mg Tab PO 40 mg 0200 KRISTY Administration Senna/Docusate Sodium 2 tab 01/21/20 12:15 01/24/20 23:41 Senokot S 8.6-50 Mg Tab PO 2 tab BIDPRN PRN Administration Constipation Sodium Chloride 10 ml 01/22/20 21:00 01/25/20 08:29 Flush - Normal Saline 10 Ml Syringe IVF 10 ml Q12HR KRISTY Administration - Exam Heart: negative: RRR, no murmur, no gallops, no rubs, normal peripheral pulses, irregular, diminshed peripheral pulses, murmur present, II/IV, III/IV Respiratory: rales Respiratory - other findings: To right lower lung Gastrointestinal: negative: soft, non-tender, non-distended, normal bowel sounds, no palpable masses, no hepatomegaly, no splenomegaly, no bruit, no guarding, no rigidity, tender to palpation, distended, diminished bowl sounds, voluntary guarding Hosp A/P - Plan DVT proph w/SCDs Shortness of breath due to organizing pneumonia with alveolar hemorrhage/pleural effusion S/p thoracentesis 01/21 Hypertension Recent hospitalization for respiratory failure due to pulmonary hemorrhage Peptic ulcer disease Obesity with a BMI of 30 Chronic anemia probably due to nutritional deficiency Plan: Echocardiogram pending at this time. Pulmonary/cardiovascular input appreciated. Thoracoscopy planned. Continue n.p.o. status. Started on prednisone. Continue inhaled steroids. GI prophylaxis. Pain control. A.m. labs. Continue other medications as above. 01/22 status post right thoracotomy for evacuation of clotted hemothorax. Chest tube to suction. We will continue to monitor 01/23 states that he feels much better and less short of breath while ambulating. We will provide him medications for constipation. Possible discharge when okay with pulmonary and cardio thoracic surgery. 01/24 we will discharge patient when okay with pulmonary and CV surgery. She has been up ambulating without any difficulties.
[2020-01-26] MEDS: predniSONE 20 MG TAB PO SCH (04:31)
[2020-01-26] MEDS: HYDROcodone/Acetaminophen 5/325 mg Tablet PO PRN ×4 (04:37→22:21)
[2020-01-26] MEDS: Famotidine 20 MG TAB PO SCH ×3 (07:24→20:54)
[2020-01-26] MEDS: Ketorolac Tromethamine 30 MG/ML VIAL IVP SCH (07:24)
[2020-01-26] MEDS: Mometasone 200 MCG/Formoterol 5 MCG 120 PUFF INHALER INH SCH ×2 (07:45→18:46)
--- NOTE | 2020-01-26 07:55 | RAD ---
XR Chest 1 View Portable History: Thoracotomy Comparison: Radiograph prior day Findings: Slight improved right lung aeration. Small right pleural effusion persists. Scar within the right midlung. No pneumothorax. Left lung relatively clear. Impression: Slight improved aeration the right mid and lower lung.
[2020-01-26 09:24] LABS: Anion Gap 16 mmol/L (10-20); BUN (Urea Nitrogen) 16 mg/dL (8.4-25.7); Calc. Creatinine Clearance 138 mL/min (70-130); Calcium 7.8 mg/dL (7.8-10.44); Carbon Dioxide 25 mmol/L (22-29); Chloride 102 mmol/L (98-107); Glucose 238 mg/dL (70-105); Magnesium 2.3 mg/dL (1.6-2.6); Potassium 4.6 mmol/L (3.5-5.1); Sodium 138 mmol/L (136-145)
--- NOTE | 2020-01-26 14:45 | PDOC.HOSPP ---
- Subjective Encounter Date: 01/26/20 Encounter Time: 09:00 Subjective: Patient up in bed no complaints. - Objective Vital Signs & Weight: Vital Signs (12 hours) Temp Pulse Resp BP Pulse Ox 01/26/20 11:30 98.5 F 90 13 137/75 97 01/26/20 07:38 98.3 F 101 H 19 165/84 H 91 L 01/26/20 03:55 98.6 F 104 H 20 139/68 95 Weight Admit Weight 234 lb Weight 248 lb I&O: 01/25/20 01/26/20 01/27/20 06:59 06:59 06:59 Intake Total 1720 1300 Output Total 900 Balance 820 1300 Result Diagrams: 01/23/20 04:20 01/26/20 08:51 Hospitalist ROS - Review of Systems Cardiovascular: denies: chest pain, palpitations, orthopnea, paroxysmal noc. dyspnea, edema, light headedness, other Gastrointestinal: denies: nausea, vomiting, abdominal pain, diarrhea, constipa tion, melena, hematochezia, other Genitourinary: denies: dysuria, frequency, incontinence, hematuria, retention, other - Medication Medications: Active Medications Generic Name Dose Route Start Last Admin Trade Name Freq PRN Reason Stop Dose Admin Acetaminophen 650 mg 01/21/20 12:15 01/22/20 03:47 Acetaminophen 325 Mg Tab PO 650 mg Q4H PRN Administration Headache/Fever/Mild Pain (1-3) Hydrocodone Bitart/Acetaminophen 2 tab 01/25/20 09:21 01/26/20 07:44 Hydrocodone/Acetaminophen 5/325 Mg Tablet PO 2 tab Q4H PRN Administration Moderate Pain (4-6) Famotidine 20 mg 01/22/20 21:00 01/26/20 08:52 Famotidine 20 Mg Tab PO 20 mg BID KRISTY Administration Mometasone Furoate/Formoterol Fumar 2 puff 01/21/20 18:30 01/26/20 07:45 Mometasone 200 Mcg/Formoterol 5 Mcg 120 Puff Inhaler INH 2 puff BID-RT KRISTY Administration Prednisone 40 mg 01/23/20 02:00 01/26/20 04:31 Prednisone 20 Mg Tab PO 40 mg 0200 KRISTY Administration Senna/Docusate Sodium 2 tab 01/21/20 12:15 01/24/20 23:41 Senokot S 8.6-50 Mg Tab PO 2 tab BIDPRN PRN Administration Constipation Sodium Chloride 10 ml 01/22/20 21:00 01/26/20 08:56 Flush - Normal Saline 10 Ml Syringe IVF 10 ml Q12HR KRISTY Administration - Exam Neck: negative: supple, symmetric, no JVD, no thyromegaly, no lymphadenopathy, no carotid bruit, JVD Heart: negative: RRR, no murmur, no gallops, no rubs, normal peripheral pulses, irregular, diminshed peripheral pulses, murmur present, II/IV, III/IV Respiratory: rales Gastrointestinal: negative: soft, non-tender, non-distended, normal bowel sounds, no palpable masses, no hepatomegaly, no splenomegaly, no bruit, no guarding, no rigidity, tender to palpation, distended, diminished bowl sounds, voluntary guarding Hosp A/P - Plan DVT proph w/SCDs Shortness of breath due to organizing pneumonia with alveolar hemorrhage/pleural effusion S/p thoracentesis 01/21 Hypertension Recent hospitalization for respiratory failure due to pulmonary hemorrhage Peptic ulcer disease Obesity with a BMI of 30 Chronic anemia probably due to nutritional deficiency Nonsustained V. tach Plan: Echocardiogram pending at this time. Pulmonary/cardiovascular input appr eciated. Thoracoscopy planned. Continue n.p.o. status. Started on prednisone. Continue inhaled steroids. GI prophylaxis. Pain control. A.m. labs. Continue other medications as above. 01/22 status post right thoracotomy for evacuation of clotted hemothorax. Chest tube to suction. We will continue to monitor 01/23 states that he feels much better and less short of breath while ambulating . We will provide him medications for constipation. Possible discharge when okay with pulmonary and cardio thoracic surgery. 01/24 we will discharge patient when okay with pulmonary and CV surgery. She has been up ambulating without any difficulties. 01/25 we will get cardiology to see the patient given the fact that he had 6 beats of V. tach a couple days ago and again had 4 beats of V. tach. will check bmp and mag. pt up walking.
--- NOTE | 2020-01-26 15:22 | CON ---
DATE OF CONSULTATION: 01/26/2020 REASON FOR CONSULTATION: Nonsustained ventricular tachycardia in the setting of lung disease. HISTORY OF PRESENT ILLNESS: Mr. Zeyad Hemphill is a gentleman, admitted to the hospital with pulmonary disease. He had undergone recently a biopsy. He also developed a hemothorax, which required drainage. He is feeling much better now. He is having trouble breathing before the drainage of the hemothorax, but now is feeling much better. He has been on the monitor. He has had a couple episodes of nonsustained ventricular tachycardia, one 6 beats, one 4 beats. I have been consulted. The initial echocardiogram was interpreted as ejection fraction of 45% to 50%, but I reviewed and I think it is in the 50% range. The patient has never had any anginal symptoms, otherwise feels well. He has smoked a few years ago briefly, but not significant amount. The patient has no previous cardiac history. MEDICATIONS: 1. He is on p.r.n. inhaled bronchodilators. He says he does not even need these. 2. He is on prednisone 40 mg a day. 3. No other heart medicines. REVIEW OF SYSTEMS: CONSTITUTIONAL: No significant weight gain or loss. VISION: No changes. HEARING: No changes. PULMONARY: Breathing much better. CARDIAC: No angina. SKIN: No rashes. NEUROLOGIC: No unilateral weakness or numbness. PSYCHIATRIC: No unusual depression or anxiety. PHYSICAL EXAMINATION: GENERAL: This is a very delightful 54-year-old man, in no distress. VITAL SIGNS: Blood pressure earlier 165/84 with a pulse of 100 and now 137/75 and pulse 90. LUNGS: Clear without any wheezing. CARDIAC: Normal S1 and normal S2. ABDOMEN: Soft and nontender. EXTREMITIES: Warm and dry. No clubbing or cyanosis. There is no edema. LABORATORY DATA: Potassium is 4.6 and creatinine is 0.96. Echocardiogram, I reviewed, I think the ejection fraction is in the 50% range. ASSESSMENT: 1. Ejection fraction 50%. 2. Pulmonary disease as outlined in the chart with "bronchiolitis obliterans organizing pneumonia.". 3. Status post drainage of hemothorax. PLAN: Consideration for low-dose beta-blockers if it is reasonable from pulmonary standpoint. I will contact Dr. Ruby to see if that is anything that is problematic from his lung standpoint. If not, we can use metoprolol succinate 25 mg a day. Job ID: [id number]
--- NOTE | 2020-01-26 16:41 | PRG ---
DATE OF SERVICE: 01/26/2020 SUBJECTIVE: Zeyad Hemphill is a gentleman, who is to be discharged home today. The primary care hospitalist requested that we see the patient again prior to his discharge to okay that he is ready to go home. Upon arrival to the room, Mr. Hemphill was sitting in the bedside chair without any distress. He says he is not having any shortness of breath, coughing, or wheezing. He has a previous open lung biopsy, which was complicated by hemothorax requiring decortication. The final path on the open lung biopsy was organizing pneumonia. He was started on prednisone by Dr. Ruby. OBJECTIVE: VITAL SIGNS: Temperature 98, pulse 95, saturations are 97% on room air, respirations 14, blood pressure 140/81. CHEST: No wheezing. No crackles. CARDIAC: Normal S1 and S2. No gallops. ABDOMEN: No masses. ASSESSMENT: 1. Organizing pneumonia, status post open lung biopsy. 2. Hemothorax right-sided, status post decortication. No history of cardiac arrhythmias. PLAN: Pulmonary rainey, he is stable enough to go home on prednisone. He is to see Dr. Ruby in two weeks prior to his work resumption. The patient understands he followup with Dr. Ruby in a few weeks. Job ID: [id number]
[2020-01-27] MEDS: HYDROcodone/Acetaminophen 5/325 mg Tablet PO PRN ×2 (02:38→09:46)
[2020-01-27] MEDS: predniSONE 20 MG TAB PO SCH (02:39)
[2020-01-27 04:12] LABS: Hemoglobin A1c 5.3 % (4.0-6.0)
[2020-01-27] MEDS: Mometasone 200 MCG/Formoterol 5 MCG 120 PUFF INHALER INH SCH (07:39)
[2020-01-27 07:51] VITALS: BP 153/90; TEMP 97.9
--- NOTE | 2020-01-27 09:38 | PRG ---
DATE OF SERVICE: 01/27/2020 SUBJECTIVE: Mr. Hemphill is doing fine, feels well, no complaints. OBJECTIVE: VITAL SIGNS: Blood pressure 153/90, pulse is 90. LUNGS: Clear. There is no wheezing. ASSESSMENT: 1. Lung disease as outlined previously in the chart. 2. Nonsustained ventricular tachycardia. 3. Ejection fraction 50% on echo by my interpretation. PLAN: He is tolerating low-dose beta-quan, metoprolol succinate 25 mg a day. No other recommendations at the present time. The patient could be released home from my standpoint. I will be glad to see him as an outpatient if he has any cardiac difficulties. Job ID: [id number]
[2020-01-27] MEDS: Famotidine 20 MG TAB PO SCH (09:43)
[2020-01-27 12:39] LABS: Cardiolipin IgA Ab 1.8 APL-U/mL (<14 Negative); Cardiolipin IgG Ab 0.9 GPL-U/mL (<10 Negative); Cardiolipin IgM Ab Less than 0.8 MPL-U/mL (<10 Negative); EliA APS New Method **** NEW METHOD ****
[2020-01-28 14:02] LABS: HEX PHOS LA Tube 1 37.9 SEC
--- NOTE | 2020-01-28 14:33 | PDOC.DS.DS ---
Provider - Provider Date of Admission: 01/22/20 09:25 Date of Discharge: 01/27/20 Admitting Provider: Deena Valenzuela MD Consultations: Pulmonary, Other (CV surgery) Primary Care Physician: NO PCP PROVIDER Course - Hospital Course Hospital Course: Patient is a very pleasant 54-year-old male diagnosed with alveolar hemorrhage organizing pneumonia Who presented to the hospital for shortness of breath. 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 Patient underwent a right thoracoscopy with conversion of thoracotomy for evacuation of hemothorax. Patient also was started on steroids. 1 L of bloody fluid was removed and patient underwent a chest tube placement. His chest tube was discontinued. Patient was able to ambulate without any abnormalities. He was noted to have a few beats of V. tach at this time cardiology was consulted patient was put on a beta-quan. 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 Resuscitation Status: 01/21/20 12:15 Resuscitation Status Routine Resuscitation Status: FULL: Full Resuscitation - Labs Lab Results: 01/23/20 04:20 01/26/20 08:51 - Physical Exam Vitals: Weight Admit Weight 234 lb Weight 248 lb Physical Exam: The patient was seen and examined on the day of discharge. Problem - Discharge Plan Assessment: Shortness of breath due to organizing pneumonia with alveolar hemorrhage/pleural effusion S/p thoracentesis 01/21 Hypertension Recent hospitalization for respiratory failure due to pulmonary hemorrhage Peptic ulcer disease Obesity with a BMI of 30 Chronic anemia probably due to nutritional deficiency Nonsustained V. tach Plan - Discharge Medications Prescriptions: HYDROcodone Bit/APAP 5/325 [[place]] 1 tab PO Q6H PRN #10 tab PRN Reason: Mild Pain (1-3) predniSONE 40 mg PO 0200 #20 tab Metoprolol Succinate [Toprol XL] 25 mg PO DAILY #30 tab Home Medications: Medication Instructions Recorded Confirmed Type Doxycycline [Vibramycin] 100 mg PO Q12HR 7 Days #14 cap 01/10/20 01/21/20 Rx Mometasone/Formoterol 200/5 2 puff INH BID 30 Days #2 inh 01/10/20 01/21/20 Rx [Dulera 200 Mcg/5 Mcg Inhaler] HYDROcodone Bit/APAP 5/325 [[place]] 1 tab PO Q6H PRN #10 tab 01/27/20 Rx Metoprolol Succinate [Toprol XL] 25 mg PO DAILY #30 tab 01/27/20 Rx predniSONE 40 mg PO 0200 #20 tab 01/27/20 Rx Allergies: No Known Allergies Allergy (Unverified 12/28/19 11:04) - Discharge Instructions Discharge Instructions:: please take steroids with food. Activity:: Activity as Tolerated Nourishment:: Heart Healthy Diet - Follow up Plan Referrals: PROVIDER,NO PCP [Primary Care Provider] - 7 Days (Please find a Primary Care Provider and schedule a follow up appointment. Untill you find one please follow up closely with Dr. Ruby.) Karl Aragon MD [Active] - 10 Days (Please call the office to schedule a follow up appointment with Dr. Aragon) Dima Ruby MD [Active] - 7 Days (Please call to schedule a follow up appointment.) Disposition: HOME Quality - Care Measures CORE MEASURES:: N/A
--- NOTE | 2020-01-30 15:17 | EKG ---
Test Reason : Blood Pressure : / mmHG Vent. Rate : 101 BPM Atrial Rate : 101 BPM P-R Int : 136 ms QRS Dur : 086 ms QT Int : 322 ms P-R-T Axes : 059 020 009 degrees QTc Int : 417 ms Sinus tachycardia Voltage criteria for left ventricular hypertrophy Abnormal ECG Confirmed by KELLY RICE DO ([id number]), manager editorial ANTOINETTE TOLEDO ([id number]) on 01/30/2020 3:17:18 PM Referred By: Confirmed By:KELLY RICE DO
[2020-02-02 18:13] LABS: Activated Protein C Resistance 2.7 ratio (.)
== END 2020-01-27 10:15 | disposition home or self-care (01) | DRG 164 ==
LOC: ERS 09:21 → ERHOLD 12:29 → 2NO 17:20 → OBSVTOIN 01-22 09:25
PROVIDERS: ADMIT Internal Medicine; ATTEND Internal Medicine
PROC: 0B9K00Z Drainage of Right Lung with Drainage Device, Open Approach (ICD-10-PCS; principal; 2020-01-22)
PROC: 0W3Q0ZZ Control Bleeding in Respiratory Tract, Open Approach (ICD-10-PCS; 2020-01-22)
PROC: 0W993ZZ Drainage of Right Pleural Cavity, Percutaneous Approach (ICD-10-PCS; 2020-01-22)
DX: J84.89 Other specified interstitial pulmonary diseases (principal); J93.9 Pneumothorax, unspecified; J90 Pleural effusion, not elsewhere classified; I47.2 Ventricular tachycardia; Z20.828 Contact with and (suspected) exposure to other viral communicable diseases; I10 Essential (primary) hypertension; K27.9 Peptic ulcer, site unspecified, unspecified as acute or chronic, without hemorrhage or perforation; E66.9 Obesity, unspecified; D53.9 Nutritional anemia, unspecified; K08.89 Other specified disorders of teeth and supporting structures; Z68.30 Body mass index [BMI] 30.0-30.9, adult; Z79.52 Long term (current) use of systemic steroids; Z79.51 Long term (current) use of inhaled steroids
CPT/HCPCS: 0240U; 36415; 71045; 71275; 80048; 80053; 81240; 81241; 82550; 83036; 83090; 83735; 83880; 84100; 84484; 85025; 85240; 85300; 85303; 85305; 85307; 85379; 85598; 85610; 85730; 86147; 93005; 93306; 93970; 94760; G0378; J0690; J1100; J1885; J2405; J2704; J3010; J7512; Q9967; S0020